=== PATIENT | male | born 1960 | race Caucasian/White ===

== ENCOUNTER 2016-11-22 21:15 | Emergency (ER) | payer SELFPAY ==
[~2016-11-22] VITALS: Ht 180.3 cm; Wt 117.8 kg
[~2016-11-22 21:15] MED LIST: ALBU1AER9 INH
[2016-11-22 21:26] VITALS: TEMP 36.8; Ht 180.3 cm; Wt 117.8 kg
[2016-11-22 21:50] VITALS: O2SAT 94
[2016-11-22] MEDS ORDERED: ALBUT/IPRATROP 3MG/0.5MG NEB 3 ML VIAL INH STA (21:53)
[2016-11-22 22:17] LABS: INR 0.9 (0.9-1.1)
--- NOTE | 2016-11-22 22:17 | DIAGNOSTIC IMAGING REPORT ---
CHEST ONE VIEW PORTABLE CLINICAL HISTORY: sob, cough dyspnea COMPARISON STUDY: 05/04/2013 FINDINGS: Mild stable cardiomegaly. Lungs are clear. Slight interstitial prominence both lung bases felt to be chronic. No acute infiltrate. IMPRESSION: Mild cardiomegaly. Otherwise negative study Electronically signed by: Luis Enrique Leon M.D. 11/22/2016 10:16 PM Dictated Date/Time: 11/22/2016 10:16 PM
[2016-11-22 22:21] LABS: BASO % 0.5 %; BASO ABS # 0.02 K/uL (0-0.2); COMPLETE YES; EOS % 2.7 %; HEMATOCRIT 43.3 % (42-52); IG% 0.2 %; LYMPH % 30.3 %; LYMPH ABS # 1.25 K/uL (1.2-3.4); MEAN CELL VOLUME 78.6 fL (80-100); MEAN CORPUSCULAR HEMOGLOBIN 27.9 pg (25-34); MEAN CORPUSCULAR HGB CONC 35.6 g/dl (32-36); MEAN PLATELET VOLUME 10.9 fL (7.4-10.4); MONO % 15.3 %; PLATELET COUNT 132 K/uL (130-400); RED BLOOD COUNT 5.51 M/uL (4.7-6.1); WHITE BLOOD COUNT 4.12 K/uL (4.8-10.8)
[2016-11-22] MEDS ORDERED: LORAZEPAM 2 MG/ML 1 ML VIAL ONE (22:27)
[2016-11-22] MEDS ORDERED: ATIVAN 1MG HOMEPACK PO ONE (22:30)
[2016-11-22] MEDS ORDERED: LORAZEPAM 2 MG/ML 1 ML VIAL IV STA (22:30)
[2016-11-22] MEDS ORDERED: DEXAMETHASONE SOD INJ 10 MG/ML VIAL IV ONE (22:30)
[2016-11-22] MEDS ORDERED: ALBUTEROL HFA 8 GM INHALER INH STA (22:30)
[2016-11-22] MEDS ORDERED: PANTOprazole SOD 40 MG TAB PO STA (22:35)
[2016-11-22 22:44] LABS: BUN/CREATININE RATIO 17.3 (10-20); CALCIUM 8.5 mg/dl (8.5-10.1); CREATININE 1.1 mg/dl (0.60-1.40); POTASSIUM 3.7 mmol/L (3.5-5.1)
[2016-11-22] MEDS ORDERED: SALI0.6510 NAE (23:02)
[2016-11-22] MEDS ORDERED: PROAIR INH (23:02)
[2016-11-22] MEDS ORDERED: FLUT0.15 NAE (23:02)
[2016-11-22 23:04] LABS: ALB/GLOB RATIO 1.1 (0.9-2)
[2016-11-23] MEDS ORDERED: PANT40TA PO (00:57)
[2016-11-23 01:06] VITALS: BP 138/84; PULSE 91; O2SAT 95
--- NOTE | 2016-11-23 04:28 | EMERGENCY ROOM VISIT NOTE ---
History First contact with patient: 22:23 Chief Complaint: RESPIRATORY PROBLEMS Stated Complaint: CONGESTION,COUGH,TROUBLE BREATHING,ANXIETY Nursing Triage Summary: c/o of SOB with increasing anxiety. Has had "cold for over week now." Reports nasal congestion, headache, sore throat & shortness of breath. Nasal drainage is clear. Frequent cough that is producing "yellow thick" mucous at times. Also reports a "large lymph node to right side of neck." Taking OTC Robitussin & Ibuprofen. hx-anxiety/panic attacks in past. Last time medicated was >5yrs ago. Home Ativan was . History of Present Illness The patient is a 56 year old male who presents to the Emergency Room with complaints of cough, congestion, pleurisy for the past week who developed a panic attack tonight. Patient states he had overwhelmed from the illness and had a panic attack. He states his Ativan is 5 years . Patient denies bowel or chest pain, dyspnea, productive cough, abdominal pain, leg pain or swelling, recent travel, prior heart disease. No family history of heart disease. He does not smoke. No prior history diabetes, cholesterol or high blood pressure. He is tolerating by mouth fluids and food. Patient also states he's been suffering with reflux for over a month now. He lost his insurance and has not been going to his doctor. Review of Systems See HPI for pertinent positives & negatives. A total of 10 systems reviewed and were otherwise negative. Past Medical/Surgical History Medical Problems: (1) Hyperlipidemia (2) Kidney stone Social History Smoking Status: Never Smoker Alcohol Use: occasionally Marital Status: Occupation Status: employed Current/Historical Medications Scheduled Pantoprazole (Protonix), 40 MG PO DAILY Saline ([place] Nasal [place]), 2 SPRAYS KENAN PRN Scheduled PRN Fluticasone Propionate (Nasal) (Flonase Allergy Relief), 2 SPRAYS KENAN DAILY PRN for Nasal Congestion [Proair], 2 PUFFS INH QID PRN for SOB/Wheezing Allergies Coded Allergies: No Known Allergies (Unverified , 04/21/15) Physical Exam Vital Signs Date Time Temp Pulse Resp B/P Pulse Ox O2 Delivery O2 Flow Rate FiO2 11/23/16 01:06 91 20 138/84 95 Room Air 11/22/16 23:00 86 18 96 11/22/16 22:45 80 13 95 11/22/16 22:42 177/97 11/22/16 22:30 82 19 95 11/22/16 22:15 76 17 96 11/22/16 22:00 79 15 98 11/22/16 22:00 94 Room Air 11/22/16 21:58 80 11/22/16 21:50 94 Room Air 11/22/16 21:43 162/95 11/22/16 21:26 36.8 78 20 153/95 96 Room Air Pain Rating (0-10): 3.0 Physical Exam VITALS: Vitals are noted on the nurse's note and reviewed by myself. Vital signs stable. GENERAL: Pleasant male anxious-appearing, in no acute distress, nondiaphoretic, well-developed well-nourished. SKIN: The skin was without rashes, erythema, edema, or bruising. There is no tenting of the skin. Capillary reflex less than 2 seconds. HEAD: Normocephalic atraumatic. EARS: External auditory canals clear, tympanic membranes pearly [place] without erythema or effusion bilaterally. EYES: Pupils equal round and reactive to light and accommodation. Conjunctivae without injection, sclerae without icterus. Extraocular movements intact. NOSE: Patent, turbinates without inflammation or discharge. No sinus tenderness. MOUTH: Mucous membranes moist. Pharynx without erythema or exudate. Uvula midline. Airway patent. Tongue does not deviate. NECK: Supple without nuchal rigidity. No lymphadenopathy. No thyromegaly. Cervical spine is nontender. No JVD. HEART: Regular rate and rhythm without murmurs gallops or rubs. LUNGS: Clear to auscultation bilaterally without wheezes, rales or rhonchi. No dullness to percussion. No retractions or accessory muscle use. ABDOMEN: Positive bowel sounds x 4. Normal tympanic percussion. Soft, nontender, without masses or organomegaly. Penn sign negative. No guarding or rebound tenderness. MUSCULOSKELETAL: No muscle atrophy, erythema, or edema noted. NEURO: Patient was alert and oriented to person place and time. Normal sensation to light and sharp touch. No focal neurological deficits. Medical Decision & Procedures Laboratory Results 11/22/16 21:55 Red Blood Count 5.51, Mean Corpuscular Volume 78.6, Mean Corpuscular Hemoglobin 27.9, Mean Corpuscular Hemoglobin Concent 35.6, Mean Platelet Volume 10.9, Neutrophils (%) (Auto) 51.0, Lymphocytes (%) (Auto) 30.3, Monocytes (%) (Auto) 15.3, Eosinophils (%) (Auto) 2.7, Basophils (%) (Auto) 0.5, Neutrophils # (Auto ) 2.10, Lymphocytes # (Auto) 1.25, Monocytes # (Auto) 0.63, Eosinophils # (Auto ) 0.11, Basophils # (Auto) 0.02 11/22/16 21:55 Test 11/22/16 21:55 11/22/16 23:52 White Blood Count 4.12 K/uL (4.8-10.8) Red Blood Count 5.51 M/uL (4.7-6.1) Hemoglobin 15.4 g/dL (14.0-18.0) Hematocrit 43.3 % (42-52) Mean Corpuscular Volume 78.6 fL (80-100) Mean Corpuscular Hemoglobin 27.9 pg (25-34) Mean Corpuscular Hemoglobin Concent 35.6 g/dl (32-36) Platelet Count 132 K/uL (130-400) Mean Platelet Volume 10.9 fL (7.4-10.4) Neutrophils (%) (Auto) 51.0 % Lymphocytes (%) (Auto) 30.3 % Monocytes (%) (Auto) 15.3 % Eosinophils (%) (Auto) 2.7 % Basophils (%) (Auto) 0.5 % Neutrophils # (Auto) 2.10 K/uL (1.4-6.5) Lymphocytes # (Auto) 1.25 K/uL (1.2-3.4) Monocytes # (Auto) 0.63 K/uL (0.11-0.59) Eosinophils # (Auto) 0.11 K/uL (0-0.5) Basophils # (Auto) 0.02 K/uL (0-0.2) RDW Standard Deviation 36.5 fL (36.4-46.3) RDW Coefficient of Variation 12.9 % (11.5-14.5) Immature Granulocyte % (Auto) 0.2 % Immature Granulocyte # (Auto) 0.01 K/uL (0.00-0.02) Prothrombin Time 10.0 SECONDS (9.0-12.0) Prothromb Time International Ratio 0.9 (0.9-1.1) Activated Partial Thromboplast Time 25.5 SECONDS (21.0-31.0) Partial Thromboplastin Ratio 1.0 Anion Gap 10.0 mmol/L (3-11) Est Creatinine Clear Calc Drug Dose 96.7 ml/min Estimated GFR () 85.9 Estimated GFR (Non- 74.1 BUN/Creatinine Ratio 17.3 (10-20) Calcium Level 8.5 mg/dl (8.5-10.1) Total Bilirubin 0.6 mg/dl (0.2-1) Aspartate Amino Transf (AST/SGOT) 26 U/L (15-37) Alanine Aminotransferase (ALT/SGPT) 41 U/L (12-78) Alkaline Phosphatase 76 U/L (45-117) Total Protein 7.3 gm/dl (6.4-8.2) Albumin 3.8 gm/dl (3.4-5.0) Globulin 3.5 gm/dl (2.5-4.0) Albumin/Globulin Ratio 1.1 (0.9-2) Chemistry Specimen Hemolysis Bedside Troponin I 0.000 ng/ml (0-0.045) Medications Administered Medications (Trade) Dose Ordered Sig/Josh Route Start Time Stop Time Status Last Admin Dose Admin Albuterol/ Ipratropium (Duoneb) 3 ml NOW STAT INH 11/22/16 21:53 11/22/16 21:56 DC 11/22/16 22:20 3 ML Lorazepam (Ativan Inj) 1 mg NOW STAT IV 11/22/16 22:30 11/22/16 22:32 DC 11/22/16 22:45 1 MG Lorazepam (Ativan 1MG Home Pack) 1 homepack UD ONCE PO 11/22/16 22:30 11/22/16 22:32 DC 11/23/16 00:04 1 HOMEPACK Dexamethasone Sodium Phosphate (Decadron Inj) 10 mg NOW ONCE IV 11/22/16 22:30 11/22/16 22:32 DC 11/23/16 00:02 10 MG Albuterol (Ventolin Hfa Inhaler) 2 puffs ONE STAT INH 11/22/16 22:30 11/22/16 22:32 DC 11/23/16 00:04 60 PUFFS Pantoprazole Sodium (Protonix Tab) 40 mg NOW STAT PO 11/22/16 22:35 11/22/16 22:36 DC 11/23/16 00:03 40 MG ED Course Prior records/ancillary studies reviewed. Triage Nursing notes reviewed. Additional history obtained from family. The patient's history was concerning for cold symptoms, panic attack and reflux. Differential diagnosis: Etiologies such as cardiac ischemia, aortic dissection, pulmonary embolism, pneumonia, pneumothorax, musculoskeletal, infections, pericarditis, myocarditis , esophageal rupture, gastrointestinal, as well as others were entertained. Physical examination: As above. ER treatment provided: Ativan, Protonix On reassessment the patient felt better. Diagnostic interpretation by me: The electrocardiogram was negative for pathologic change. Normal sinus, normal intervals, no acute ST-T wave changes. Impression normal sinus rhythm interpreted by myself The labs revealed negative troponin 2 hours apart 2, no worrisome leukocytosis Imaging studies: Chest x-ray as above CHEST ONE VIEW PORTABLE CLINICAL HISTORY: sob, cough dyspnea COMPARISON STUDY: 05/04/2013 FINDINGS: Mild stable cardiomegaly. Lungs are clear. Slight interstitial prominence both lung bases felt to be chronic. No acute infiltrate. IMPRESSION: Mild cardiomegaly. Otherwise negative study Electronically signed by: Luis Enrique Leon M.D. Exam and history seem consistent with bronchitis, panic attack and reflux. Patient felt much better after being medicated as above. He did not have an acute abdomen on exam. 2 troponins were neg 2 hours apart and a normal EKG. I do not believe this is cardiac in etiology. He has been sick for a week. No pneumonia on x-ray. He was advised to take medications as directed and to follow-up family care in a few days or here in the ER sooner for chest pain, difficulty breathing, worsening signs or symptoms or as needed. By the evaluation outlined above emergent etiologies such as cardiac ischemia, aortic dissection, pulmonary embolism, pneumonia, pneumothorax, pericarditis, myocarditis, gastrointestinal, as well as others were deemed relatively unlikely. The pt informed about the findings as listed above. All questions were answered and pleased with the treatment. Return instructions were outlined and the patient was discharged in stable condition. Outpatient prescription management: protonix Referral: The patient was referred back to primary care physician for follow-up in 2 to 3 days for a recheck of the current condition. Case reviewed with my attending Medical Decision As above Impression Primary Impression: Bronchitis Additional Impressions: Anxiety GERD (gastroesophageal reflux disease) Departure Information Dispostion Home / Self-Care Condition GOOD Prescriptions Pantoprazole (Protonix) 40 Mg Tab 40 MG PO DAILY for 14 Days, #14 TAB Prov: Skylar Pitt PA-C 11/23/16 Forms WORK / SCHOOL INSTRUCTIONS, HOME CARE DOCUMENTATION FORM, IMPORTANT VISIT INFORMATION Patient Instructions GERD, Bronchitis Acute, My [facility] Additional Instructions Protonix 40 m tablet daily for the next 2 weeks. Albuterol Inhaler: Take 2 puffs four times daily for five days, then as needed. Rest and drink plenty of fluids. Avoid smoke/smoking, fumes, dust, or any triggers in the past that may have affected your breathing. Continue current medications. Return to the ER for chest pain, difficulty breathing, fevers, vomiting, worsening of your condition, or as needed. Follow up with your primary physician this week for a recheck of your current condition. Problem Qualifiers Additional Impressions: GERD (gastroesophageal reflux disease) Esophagitis presence: esophagitis presence not specified Qualified Codes: K21.9 - Gastro-esophageal reflux disease without esophagitis
== END 2016-11-23 01:20 | disposition home or self-care (01) ==
LOC: C.EDB 21:15 → C.EDA 11-23 01:20
DX: J40 Bronchitis, not specified as acute or chronic (principal); F41.9 Anxiety disorder, unspecified; K21.9 Gastro-esophageal reflux disease without esophagitis; E78.5 Hyperlipidemia, unspecified; Z87.442 Personal history of urinary calculi

== ENCOUNTER 2017-01-22 15:54 | Emergency (ER) | payer OTHER ==
[~2017-01-22] VITALS: Ht 180.3 cm; Wt 115.5 kg
[~2017-01-22 15:54] MED LIST changes: -ALBU1AER9 INH; +FLUT0.15 NAE; +PROAIR INH; +SALI0.6510 NAE
[2017-01-22 15:58] VITALS: TEMP 36.5; Ht 180.3 cm; Wt 115.5 kg
[2017-01-22] MEDS ORDERED: LORAZEPAM 0.5 MG TAB PO STA (16:13)
[2017-01-22] MEDS ORDERED: MECLIZINE HCL 25 MG TAB PO STA (16:13)
[2017-01-22] MEDS ORDERED: SODIUM CHLORIDE 0.9% 1000ML 1,000 ML IV STA (16:13)
[2017-01-22 16:32] LABS: BASO % 0.4 %; BASO ABS # 0.02 K/uL (0-0.2); COMPLETE YES; EOS % 1.5 %; HEMATOCRIT 43.9 % (42-52); LYMPH % 41.5 %; LYMPH ABS # 1.89 K/uL (1.2-3.4); MEAN CORPUSCULAR HEMOGLOBIN 28.4 pg (25-34); MEAN CORPUSCULAR HGB CONC 35.5 g/dl (32-36); MONO % 9.5 %; NEUT % 47.1 %; PLATELET COUNT 160 K/uL (130-400); RED BLOOD COUNT 5.49 M/uL (4.7-6.1); WHITE BLOOD COUNT 4.55 K/uL (4.8-10.8)
--- NOTE | 2017-01-22 16:35 | DIAGNOSTIC IMAGING REPORT ---
SINGLE VIEW CHEST CLINICAL HISTORY: Dizziness. Nausea. FINDINGS: An AP, portable, upright chest radiograph is compared to study dated 11/22/2016 and correlated with chest CT dated 05/04/2013. The examination is degraded by portable technique and patient rotation. The heart is enlarged. The pulmonary vasculature is noncongested. Chronic interstitial thickening is similar to previous. There is mild bibasilar atelectasis. No airspace consolidation, large pleural effusion, or pneumothorax is seen. The bony thorax is grossly intact. IMPRESSION: Cardiomegaly with no acute cardiopulmonary abnormality. Electronically signed by: Tin Leon M.D. 01/22/2017 4:33 PM Dictated Date/Time: 01/22/2017 4:32 PM
[2017-01-22 16:49] LABS: BUN/CREATININE RATIO 18.3 (10-20); CALCIUM 8.5 mg/dl (8.5-10.1); CREATININE 0.92 mg/dl (0.60-1.40); POTASSIUM 3.3 mmol/L (3.5-5.1)
--- NOTE | 2017-01-22 16:52 | DIAGNOSTIC IMAGING REPORT ---
HEAD CT NONCONTRAST CT DOSE: 614.27 mGy.cm HISTORY: Mental status change dizzy TECHNIQUE: Multiaxial CT images of the head were performed without the use of intravenous contrast. Comparison: None. Findings: The paranasal sinuses and mastoid air cells are clear. The calvarium and skull base are intact. The ventricles and sulci are within normal limits. There is no mass, hematoma, midline shift, or acute infarct. Impression: No acute intracranial abnormality. Electronically signed by: Luis Enrique Leon M.D. 01/22/2017 4:51 PM Dictated Date/Time: 01/22/2017 4:49 PM
[2017-01-22] MEDS ORDERED: VNTHFA/IN INH (17:19)
[2017-01-22] MEDS ORDERED: LORAZEPAM 0.5 MG TAB SL STA (17:45)
[2017-01-22] MEDS ORDERED: SODIUM CHLORIDE 0.9% 500ML 500 ML IV STA (18:01)
[2017-01-22] MEDS ORDERED: ANT25 PO (18:59)
[2017-01-22 19:28] VITALS: BP 162/110; PULSE 60; O2SAT 96
--- NOTE | 2017-01-22 20:26 | EMERGENCY ROOM VISIT NOTE ---
History Report prepared by Bee: Shruthi Berry Under the Supervision of: Dr. Eric Ugarte D.O. First contact with patient: 16:01 Chief Complaint: DIZZY Stated Complaint: DIZZINESS,OVERHEATED,NAUSEATED History of Present Illness The patient is a 56 year old male who presents to the Emergency Room with complaints of sudden, persistent dizziness that began one hour ago. The patient reports that he was sitting on his computer looking at stuff today and when he stood, he suddenly became dizzy. He states that he laid down and felt his symptoms worsen. The patient states that he became diaphoretic and nauseous , noting that he still feels hot. The patient states that he has a history of anxiety, noting that it has been worsening. He states that sitting is the best position, but states that he still notices the dizziness. The patient associates a fatigued feeling in his legs. He denies any new medications or recent trauma. The patient denies being on any blood thinners. Pt denies headache, change in vision, ringing in ears, cough, runny nose, sore throat, fevers, chest pain, shortness of breath, vomiting, diarrhea, pain with urination , melena, weakness in arms or legs. Source of History: patient Onset: one hour ago Position: other (global) Quality: other (dizziness) Timing: other (sudden, persistent) Modifying Factors (Worsening): other (lying down) Associated Symptoms: + diaphoresis, + nausea Review of Systems See HPI for pertinent positives & negatives. A total of 10 systems reviewed and were otherwise negative. Past Medical & Surgical Medical Problems: (1) Hyperlipidemia (2) Kidney stone Family History Diabetes mellitus FH: cancer FH: heart disease Kidney disease Kidney stones Social History Smoking Status: Never Smoker Alcohol Use: occasionally Marital Status: Housing Status: lives with family Occupation Status: unemployed Current/Historical Medications Scheduled Meclizine HCl (Meclizine HCl), 25 MG PO TID Saline ([place] Nasal [place]), 2 SPRAYS KENAN PRN Scheduled PRN Albuterol Hfa (Ventolin Hfa), 2-4 PUFFS INH Q6H PRN for SOB/Wheezing Fluticasone Propionate (Nasal) (Flonase Allergy Relief), 2 SPRAYS KENAN DAILY PRN for Nasal Congestion Allergies Coded Allergies: No Known Allergies (Unverified , 01/22/17) Physical Exam Vital Signs Date Time Temp Pulse Resp B/P Pulse Ox O2 Delivery O2 Flow Rate FiO2 01/22/17 19:28 60 18 162/110 96 01/22/17 18:05 65 18 145/86 98 Room Air 01/22/17 15:58 36.5 64 20 144/100 95 Room Air Physical Exam GENERAL: Sitting up in bed, alert, well appearing, well nourished, no distress, non-toxic. Symptoms worsened with change from laying to sitting. EYE EXAM: normal conjunctiva, PERRL and EOM's intact EARS: TMs clear bilaterally. OROPHARYNX: no exudate, no erythema, lips, buccal mucosa, and tongue normal and mucous membranes are moist NECK: supple, no nuchal rigidity, no adenopathy, non-tender LUNGS: Clear to auscultation. Normal chest wall mechanics HEART: no murmurs, S1 normal and S2 normal ABDOMEN: abdomen soft, non-tender, normo-active bowel sounds, no masses, no rebound or guarding. BACK: Back is symmetrical on inspection and there is no deformity, no midline tenderness, no CVA tenderness. SKIN: no rashes and no bruising UPPER EXTREMITIES: upper extremities are grossly normal. LOWER EXTREMITIES: No pitting edema. NEURO EXAM: Normal sensorium, cranial nerves II-XII intact, normal speech, no weakness of arms, no weakness of legs. No drift. Finger to nose intact. Gross sensation intact. Rapid alternating movements of upper extremities are intact. Medical Decision & Procedures ER Provider Diagnostic Interpretation: Radiology results as stated below per my review and the radiologist's interpretation: HEAD CT NONCONTRAST CT DOSE: 614.27 mGy.cm HISTORY: Mental status change dizzy TECHNIQUE: Multiaxial CT images of the head were performed without the use of intravenous contrast. Comparison: None. Findings: The paranasal sinuses and mastoid air cells are clear. The calvarium and skull base are intact. The ventricles and sulci are within normal limits. There is no mass, hematoma, midline shift, or acute infarct. Impression: No acute intracranial abnormality. Electronically signed by: Luis Enrique Leon M.D. 01/22/2017 4:51 PM Dictated Date/Time: 01/22/2017 4:49 PM SINGLE VIEW CHEST CLINICAL HISTORY: Dizziness. Nausea. FINDINGS: An AP, portable, upright chest radiograph is compared to study dated 11/22/2016 and correlated with chest CT dated 05/04/2013. The examination is degraded by portable technique and patient rotation. The heart is enlarged. The pulmonary vasculature is noncongested. Chronic interstitial thickening is similar to previous. There is mild bibasilar atelectasis. No airspace consolidation, large pleural effusion, or pneumothorax is seen. The bony thorax is grossly intact. IMPRESSION: Cardiomegaly with no acute cardiopulmonary abnormality. Electronically signed by: Tin Leon M.D. 01/22/2017 4:33 PM Dictated Date/Time: 01/22/2017 4:32 PM Laboratory Results 01/22/17 16:25 Red Blood Count 5.49, Mean Corpuscular Volume 80.0, Mean Corpuscular Hemoglobin 28.4, Mean Corpuscular Hemoglobin Concent 35.5, Mean Platelet Volume 11.0, Neutrophils (%) (Auto) 47.1, Lymphocytes (%) (Auto) 41.5, Monocytes (%) (Auto) 9.5, Eosinophils (%) (Auto) 1.5, Basophils (%) (Auto) 0.4, Neutrophils # (Auto) 2.14, Lymphocytes # (Auto) 1.89, Monocytes # (Auto) 0.43, Eosinophils # (Auto) 0.07, Basophils # (Auto) 0.02 01/22/17 16:25 Test 01/22/17 16:25 White Blood Count 4.55 K/uL (4.8-10.8) Red Blood Count 5.49 M/uL (4.7-6.1) Hemoglobin 15.6 g/dL (14.0-18.0) Hematocrit 43.9 % (42-52) Mean Corpuscular Volume 80.0 fL (80-100) Mean Corpuscular Hemoglobin 28.4 pg (25-34) Mean Corpuscular Hemoglobin Concent 35.5 g/dl (32-36) Platelet Count 160 K/uL (130-400) Mean Platelet Volume 11.0 fL (7.4-10.4) Neutrophils (%) (Auto) 47.1 % Lymphocytes (%) (Auto) 41.5 % Monocytes (%) (Auto) 9.5 % Eosinophils (%) (Auto) 1.5 % Basophils (%) (Auto) 0.4 % Neutrophils # (Auto) 2.14 K/uL (1.4-6.5) Lymphocytes # (Auto) 1.89 K/uL (1.2-3.4) Monocytes # (Auto) 0.43 K/uL (0.11-0.59) Eosinophils # (Auto) 0.07 K/uL (0-0.5) Basophils # (Auto) 0.02 K/uL (0-0.2) RDW Standard Deviation 39.4 fL (36.4-46.3) RDW Coefficient of Variation 13.3 % (11.5-14.5) Immature Granulocyte % (Auto) 0.0 % Immature Granulocyte # (Auto) 0.00 K/uL (0.00-0.02) Anion Gap 7.0 mmol/L (3-11) Est Creatinine Clear Calc Drug Dose 114.5 ml/min Estimated GFR () 106.6 Estimated GFR (Non- 92.0 BUN/Creatinine Ratio 18.3 (10-20) Calcium Level 8.5 mg/dl (8.5-10.1) Total Bilirubin 0.9 mg/dl (0.2-1) Direct Bilirubin 0.2 mg/dl (0-0.2) Aspartate Amino Transf (AST/SGOT) 20 U/L (15-37) Alanine Aminotransferase (ALT/SGPT) 41 U/L (12-78) Alkaline Phosphatase 71 U/L (45-117) Total Protein 6.9 gm/dl (6.4-8.2) Albumin 3.8 gm/dl (3.4-5.0) Lipase 124 U/L (73-393) Laboratory results per my review. Medications Administered Medications (Trade) Dose Ordered Sig/Josh Route Start Time Stop Time Status Last Admin Dose Admin Sodium Chloride (Nss 1000ml) 1,000 ml @ 999 mls/hr Q1H1M STAT IV 01/22/17 16:13 01/22/17 17:13 DC 01/22/17 16:33 999 MLS/HR Meclizine HCl (Antivert Tab) 25 mg NOW STAT PO 01/22/17 16:13 01/22/17 16:15 DC 01/22/17 16:29 25 MG Lorazepam (Ativan Tab) 0.5 mg NOW STAT PO 01/22/17 16:13 01/22/17 16:15 DC 01/22/17 16:29 0.5 MG Lorazepam 0.5 mg 0.5 mg NOW STAT SL 01/22/17 17:45 01/22/17 17:46 DC 01/22/17 18:04 0.5 MG Sodium Chloride (Nss 500ml) 500 ml @ 999 mls/hr Q31M STAT IV 01/22/17 18:01 01/22/17 18:31 DC 01/22/17 18:04 999 MLS/HR ECG Indication: other (dizziness) Rate (beats per minute): 64 Rhythm: sinus rhythm Findings: no ectopy, other (normal axis) ED Course ED COURSE: Vital signs were reviewed and showed normal vitals The patients medical record was reviewed The above diagnostic studies were performed and reviewed. ED treatments and interventions as stated above. 1605: The patient was evaluated in room C9. A complete history and physical examination was performed. 1613: Ordered Ativan Tab 0.5 mg PO, Antivert Tab 25 mg PO, Sodium Chloride 1000 ml @ 999 mls/hr IV. 1653: I reevaluated the patient and he is resting comfortably. 1733: I reevaluated the patient and he is feeling better. 1745: Ordered Ativan Tab 0.5 mg Sl. 1801: Ordered Sodium Chloride 500 ml @ 999 mls/hr IV. 1851: Upon reevaluation, the patient is feeling 100% better.I discussed my findings with the patient and he understands and agrees with the treatment plan. Based on the patients age, coexisting illnesses, exam and lab findings the decision to treat as an outpatient was made. The patient remained stable while under my care. The patient appeared well at the time of discharge. Medical Decision Differential diagnosis includes etiologies such as benign positional vertigo, dehydration, hypovolemia, anemia, tumor, infection, hypoglycemia, electrolyte abnormalities, cardiac sources, intracerebral event, toxicologic, neurologic, as well as others were entertained. Patient is a 56-year-old male who presents to the ER for sudden onset of dizziness. He notes that this comes and goes very abruptly. No fevers. No headache. No weakness in his arms or legs. He is completely neurologically intact. No cerebellar symptoms. Able to ambulate. Symptoms were worse with changing in positions laying to sitting. CBC along with BMP, LFTs, bilirubin and lipase were normal. CT head was negative. He was given 2 doses of Ativan and Antivert with complete resolution of his dizziness. EKG was unremarkable. Based on his symptoms I do favor this is likely peripheral vertigo. Patient was updated in regards to this was discharged with near resolution of his dizziness ambulating under his own accord. Discussed with Pt concerning signs and symptoms to watch out for. Pt was instructed to follow up with their PCP and discussed with the patient their option to return to the ED at anytime for persistent or worsening symptoms. The appropriate anticipatory guidance and out- patient management, including indications for return to the emergency department , were explained at length to the patient and understood. Impression Primary Impression: Vertigo Additional Impression: Hypokalemia Scribe Attestation The scribe's documentation has been prepared under my direction and personally reviewed by me in its entirety. I confirm that the note above accurately reflects all work, treatment, procedures, and medical decision making performed by me. Departure Information Dispostion Home / Self-Care Prescriptions Meclizine HCl (Meclizine HCl) 25 Mg Tab 25 MG PO TID, #30 Prov: Eric Ugarte, 01/22/17 Referrals No Doctor, Assigned (PCP) Keira Nielson M.D. (MEDICAL) Forms HOME CARE DOCUMENTATION FORM, IMPORTANT VISIT INFORMATION Patient Instructions ED Vertigo Unspecified, My [facility] Additional Instructions Please follow up with your primary care doctor with in the next 24 hours. Any worsening of your symptoms, please return to the ED immediately. This includes weakness or numbness in your arms or legs, confusion, slurred speech, inability to move, or any other concerning signs or symptoms from your standpoint. Please take Antivert as prescribed for any recurrence of your dizziness. Please do not drive, work, operate heavy machinery for the next 12 hours. Problem Qualifiers
== END 2017-01-22 19:39 | disposition home or self-care (01) ==
LOC: C.EDB 15:55 → C.EDC 19:39
DX: R42 Dizziness and giddiness (principal); E87.6 Hypokalemia; E78.5 Hyperlipidemia, unspecified; I51.7 Cardiomegaly; Z87.442 Personal history of urinary calculi; Z83.3 Family history of diabetes mellitus

== ENCOUNTER → 2017-05-15 | Outpatient (CLI) | payer OTHER ==
[~2017-05-15] MED LIST changes: +ANT25 PO; -PROAIR INH; +VNTHFA/IN INH
[2017-05-15 10:16] LABS: CHOLESTEROL/HDL RATIO 6.9
== END | disposition home or self-care (01) ==
LOC: C.LAB1850 07:56
PROVIDERS: ATTEND Internal Medicine
DX: Z11.59 Encounter for screening for other viral diseases (principal); Z13.1 Encounter for screening for diabetes mellitus; E78.5 Hyperlipidemia, unspecified

== ENCOUNTER 2017-12-22 10:09 | Emergency (ER) | payer BC, OTHER ==
[~2017-12-22] VITALS: Ht 180.3 cm; Wt 104.3 kg
[2017-12-22 10:17] VITALS: TEMP 36.4; Ht 180.3 cm; Wt 104.3 kg
[2017-12-22] MEDS ORDERED: ATOR-22 PO (10:39)
[2017-12-22] MEDS ORDERED: CLR10 PO (10:39)
[2017-12-22] MEDS ORDERED: RANI150T85 PO (10:39)
[2017-12-22] MEDS ORDERED: KETOROLAC TROMETHAMINE 60 MG/2 ML VIAL IM STA (10:54)
--- NOTE | 2017-12-22 12:05 | DIAGNOSTIC IMAGING REPORT ---
C-SPINE ROUTINE 4 OR 5 VIEWS HISTORY: Pain. Peripheral neuropathy. eval for rt shoulder pain COMPARISON: None. FINDINGS: The cervical spine is visualized from C1 through the superior endplate of T1. There is no fracture. No subluxation. Disc spaces are preserved. Prevertebral soft tissues and the atlantodens interval are intact. IMPRESSION: No fracture or subluxation within the cervical spine. The above report was generated using voice recognition software. It may contain grammatical, syntax or spelling errors. Electronically signed by: Luis Enrique Leon M.D. 12/22/2017 12:04 PM Dictated Date/Time: 12/22/2017 12:03 PM
--- NOTE | 2017-12-22 12:05 | DIAGNOSTIC IMAGING REPORT ---
R SHOULDER MIN 2 VIEWS ROUTINE CLINICAL HISTORY: 57 years-old Male presenting with eval for right shoulder pain. TECHNIQUE: Internal rotation, external rotation, Grashey views of the right shoulder were obtained. COMPARISON: Chest x-ray from 05/04/2013. FINDINGS: Glenohumeral and acromioclavicular joints congruent. No acute fracture or malalignment. No advanced degenerative change. No radiographic soft tissue abnormality. IMPRESSION: No acute osseous injury. Electronically signed by: Steven Artis M.D. 12/22/2017 12:04 PM Dictated Date/Time: 12/22/2017 12:03 PM
--- NOTE | 2017-12-22 12:35 | EMERGENCY ROOM VISIT NOTE ---
History Report prepared by Bee: Andi Theodore Under the Supervision of: Dr. Moi Orourke M.D. First contact with patient: 10:41 Chief Complaint: ARM PAIN Stated Complaint: RT ARM PAIN History of Present Illness The patient is a 57 year old male who presents to the Emergency Room with complaints of intermittent right arm pain beginning 15 years ago. He states that his current pain is present in his right shoulder more than normal. He describes his pain as a feeling of "soreness". The patient denies recent injury or trauma. He states that his pain initially was present once or twice a year for a few days, but now comes more frequently. He has had x-rays of his arm in the past and was told he had bursitis. He had a head CT last year as well which was negative. The patient states that his pain usually moves from his right arm to his left arm, but this has not happened yet for his current pain. He states that his pain is worsened with movement. He also complains of nausea. The patient denies vomiting, fevers, chills, abdominal pain, chest pain, or SOB. His PCP told him his pain may be a "phantom pain". Source of History: patient Onset: 15 years ago Position: arm (right) Quality: other ("soreness") Timing: intermittent Modifying Factors (Worsening): movement Associated Symptoms: + nausea, No fevers, No chills, No chest pain, No SOB, No vomiting, No abdominal pain Review of Systems See HPI for pertinent positives & negatives. A total of 10 systems reviewed and were otherwise negative. Past Medical & Surgical Medical Problems: (1) Hyperlipidemia (2) Kidney stone Old medical records were reviewed. Nurse's notes were reviewed and I agree with. Family History Diabetes mellitus FH: cancer FH: heart disease Kidney disease Kidney stones Social History Smoking Status: Never Smoker Alcohol Use: occasionally Marital Status: Housing Status: lives with family Occupation Status: unemployed Current/Historical Medications Scheduled Atorvastatin (Lipitor), 20 MG PO DAILY Loratadine (Claritin), 10 MG PO DAILY Ranitidine (Zantac), 150 MG PO BID Saline ([place] Nasal [place]), 2 SPRAYS KENAN PRN Scheduled PRN Albuterol Hfa (Ventolin Hfa), 2-4 PUFFS INH Q6H PRN for SOB/Wheezing Fluticasone Propionate (Nasal) (Flonase Allergy Relief), 2 SPRAYS KENAN DAILY PRN for Nasal Congestion Allergies Coded Allergies: No Known Allergies (Unverified , 12/22/17) Physical Exam Vital Signs Date Time Temp Pulse Resp B/P (MAP) Pulse Ox O2 Delivery O2 Flow Rate FiO2 12/22/17 12:53 63 16 148/92 97 12/22/17 11:20 62 16 177/98 95 Room Air 12/22/17 10:17 36.4 71 18 144/101 90 Room Air Physical Exam General: Non-ill appearing middle-aged male in no acute distress. HEENT: Normal cephalic atraumatic. Pupils are equal round and reactive to light. Extraocular movements are intact. Oropharynx is pink with moist mucous membranes. No swelling of the mouth lips or tongue. Neck: Supple with a midline trachea. No meningeal signs or stiffness, no JVD or bruits. No Stridor. Chest: Clear to auscultation bilaterally. No wheezes or rhonchi. No increased work of breathing. Heart: regular rate and rhythm. Abdomen: Soft nontender, nondistended without rebound guarding or rigidity. Extremities: No cyanosis clubbing or edema. No calf tenderness or assymetry. Right shoulder is not red or warm. Pain reproducible with movement, particularly abduction. Normal motor and sensation in the right hand distally. Spine/Back. Non tender to palpation. No CVA tenderness Skin: Good turgor without rashes. Neurologic exam: Cranial nerves two through 12 are intact. Motor and sensation are intact and symmetrical throughout. Medical Decision & Procedures ER Provider Diagnostic Interpretation: Radiology results as stated below per my review and radiologist interpretation: R SHOULDER MIN 2 VIEWS ROUTINE FINDINGS: Glenohumeral and acromioclavicular joints congruent. No acute fracture or malalignment. No advanced degenerative change. No radiographic soft tissue abnormality. IMPRESSION: No acute osseous injury. Electronically signed by: Steven Artis M.D. 12/22/2017 12:04 PM C-SPINE ROUTINE 4 OR 5 VIEWS FINDINGS: The cervical spine is visualized from C1 through the superior endplate of T1. There is no fracture. No subluxation. Disc spaces are preserved. Prevertebral soft tissues and the atlantodens interval are intact. IMPRESSION: No fracture or subluxation within the cervical spine. The above report was generated using voice recognition software. It may contain grammatical, syntax or spelling errors. Electronically signed by: Luis Enrique Leon M.D. 12/22/2017 12:04 PM Medications Administered Medications (Trade) Dose Ordered Sig/Josh Route Start Time Stop Time Status Last Admin Dose Admin Ketorolac Tromethamine (Toradol Inj) 60 mg NOW STAT IM 12/22/17 10:54 12/22/17 10:55 DC 12/22/17 11:16 60 MG ECG Per My Interpretation Indication: nausea Rate (beats per minute): 59 Rhythm: sinus bradycardia Findings: other (No ST elevations or depressions. No PVCs. ) Comparison ECG Date: January 22, 2017 Change: no significant change ED Course 1047: Past medical records reviewed. The patient was evaluated in room C1B, and a complete history and physical examination were performed. 1054: Ordered Toradol Inj 60 mg IM. 1222: Upon reevaluation, the patient is resting comfortably. I discussed the results and treatment plan with him. He verbalized agreement of the treatment plan. The patient was discharged home. Medical Decision Differentials include, but are not limited to; musculoskeletal pain, cervical disease, arthritis, and cardiac disease. This patient comes in as described above. He has been having right arm and shoulder pain this been going on and off for 15 years. On exam, his shoulder hurts a little bit with movement is not red or warm his right upper extremity is neurologically and neurovascularly intact he has normal pulse exam. The pain is not exacerbated with movement of his neck. I did an x-ray of his neck and shoulder and they are unremarkable. EKG does not suggest acute coronary syndrome or arrhythmia. Initially his symptoms are not likely consistent with cardiac disease. He was given Toradol 60 mg IM. I believe he can be discharged home. He should return return if: Increasing pain, worsening of symptoms, fever or chills, any new problems or concerns. He is happy to plan and discharged to home. Medication Reconcilliation Current Medication List: was personally reviewed by me Blood Pressure Screening Patient's blood pressure: Elevated blood pressure Blood pressure disposition: Referred to PCP Impression Primary Impression: Right shoulder pain Scribe Attestation The scribe's documentation has been prepared under my direction and personally reviewed by me in its entirety. I confirm that the note above accurately reflects all work, treatment, procedures, and medical decision making performed by me. Departure Information Dispostion Home / Self-Care Referrals Mary Jo Guadalupe D.O. (PCP) Forms HOME CARE DOCUMENTATION FORM, IMPORTANT VISIT INFORMATION Patient Instructions My [facility] Additional Instructions Rest. Drink plenty of fluids. Use ibuprofen 400 mg every 6 hours, take with food Return if: Increasing pain, worsening symptoms, fever chills, numbness weakness , any new problems or concerns Up with your doctor this week for recheck
[2017-12-22 12:53] VITALS: BP 148/92; PULSE 63; O2SAT 97
== END 2017-12-22 12:50 | disposition home or self-care (01) ==
LOC: C.EDB 10:11 → C.EDC 12:50
DX: M25.511 Pain in right shoulder (principal); E78.5 Hyperlipidemia, unspecified; Z79.899 Other long term (current) drug therapy

== ENCOUNTER 2020-11-19 01:57 | Inpatient (IN) ==
[2020-11-19] MEDS ORDERED: KETOROLAC TROMETHAMINE 15 MG/ML VIAL IV STA (02:12)
--- NOTE | 2020-11-19 02:38 | Emergency Department Note ---
History of Present Illness General Chief Complaint: Chest Pain Stated Complaint: CHEST PAIN, COUGH, CHILLS Time Seen by Provider: 11/19/20 02:02 History of Present Illness Maximum Pain Intensity: 7 This 60-year-old presents to the ER complaining of cough, congestion, dyspnea and chest pain with coughing for the past week who works at [employer] Location: Chest Quality: Congested Severity: Moderate Duration: 1 week Timing: Started a week ago Context: Breathing got worse and patient came in Modifying factors: better with sitting up; worse with laying down Patient denies exertional chest pain, constant chest pain, abdominal pain, loss of taste, loss of smell, sore throat, body aches. He has not received the flu vaccine or the Covid vaccine. No known sick contacts. No prior heart disease. He does not smoke. No recent travel. Home Medications Medication Instructions Recorded Confirmed Type cyclobenzaprine 10 mg PO BID PRN 09/20/20 11/19/20 History ezetimibe 10 mg PO DAILY 09/20/20 11/19/20 History Allergies Allergy/AdvReac Type Severity Reaction Status Date / Time No Known Allergies Allergy Verified 11/19/20 02:06 Past Med/Surg History Medical History (Updated 11/19/20 @ 04:45 by Skylar Pitt PA-C) Anxiety Bronchitis Cervical strain Fall GERD (gastroesophageal reflux disease) Hypokalemia Pain of left sternoclavicular joint Radicular pain of left upper extremity Tendinitis of right shoulder Tendinitis of right shoulder Vertigo Work related injury Surgical History (Updated 11/19/20 @ 02:36 by Skylar Pitt PA-C) No pertinent past surgical history Social History Smoking Status: Unknown if ever smoked marital status: Current Living Situation: Spouse current occupational status: employed 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 Feels Safe at Home: Yes Review of Systems A total of 10 systems reviewed and were otherwise negative Physical Exam Vital Signs Vital Signs - 24 hr 11/19/20 02:02 11/19/20 02:07 11/19/20 02:46 Temperature 36.8 C Temperature Source Oral Pulse Rate 94 H 84 Respiratory Rate 22 16 Blood Pressure 176/107 H 199/114 H Blood Pressure Mean 130 142 Pulse Oximetry 95 94 93 Oxygen Delivery Method Room Air Room Air Sepsis Recent Fever Within 48 Hours No Sepsis New/Unexplained Change in Mental Status N/A Sepsis Action Taken by Nursing No Action Required 11/19/20 02:49 11/19/20 03:00 11/19/20 03:30 Temperature Temperature Source Pulse Rate 84 79 79 Respiratory Rate 15 14 16 Blood Pressure 153/93 H 146/91 H 147/88 H Blood Pressure Mean 113 109 107 Pulse Oximetry 94 93 93 Oxygen Delivery Method Sepsis Recent Fever Within 48 Hours Sepsis New/Unexplained Change in Mental Status Sepsis Action Taken by Nursing 11/19/20 04:00 Temperature Temperature Source Pulse Rate 78 Respiratory Rate 15 Blood Pressure 142/89 H Blood Pressure Mean 106 Pulse Oximetry 94 Oxygen Delivery Method Sepsis Recent Fever Within 48 Hours Sepsis New/Unexplained Change in Mental Status Sepsis Action Taken by Nursing VITALS: Vitals are noted on the nurse's note and reviewed by myself. Vital signs hypertensive. GENERAL: White male coughing, in no acute distress, nondiaphoretic, well- developed well-nourished. SKIN: The skin was without rashes, erythema, edema, or bruising. There is no tenting of the skin. Capillary reflex less than 2 seconds. HEAD: Normocephalic atraumatic. EARS: External auditory canals clear, tympanic membranes pearly [place] without erythema or effusion bilaterally. EYES: Pupils equal round and reactive to light and accommodation. Conjunctivae without injection, sclerae without icterus. Extraocular movements intact. NOSE: Patent, turbinates without inflammation or discharge. MOUTH: Mucous membranes moist. Pharynx without erythema or exudate. Uvula midline. Airway patent. Tongue does not deviate. NECK: Supple without nuchal rigidity. No lymphadenopathy. No thyromegaly. Cervical spine is nontender. No JVD. HEART: Regular rate and rhythm LUNGS: Mild diffuse end expiratory t wheezes, No retractions or accessory muscle use. ABDOMEN: Positive bowel sounds x 4. Normal tympanic percussion. Soft, nontender, without masses or organomegaly. Penn sign negative. No guarding or rebound tenderness. No CVA tenderness MUSCULOSKELETAL: No muscle atrophy, erythema, or edema noted. NEURO: Patient was alert and oriented to person place and time. Normal sensation to light and sharp touch. No focal neurological deficits. Course Administered Medications Discontinued Medications Dexamethasone (Dexamethasone Sod Inj 4 Mg/Ml Vial) 6 mg IV ONE STA Stop: 11/19/20 05:10 Last Admin: 11/19/20 05:18 Dose: 6 mg Documented by: [id number] Sodium Chloride (Nss 1000ml) 1,000 mls @ 999 mls/hr IV .Q1H1M ONE Stop: 11/19/20 05:22 Last Infusion: 11/19/20 05:34 Dose: 0 mls/hr Documented by: [id number] Admin: 11/19/20 04:30 Dose: 999 mls/hr Documented by: [id number] Lorazepam (Ativan) 1 mg in 2 mls @ 2 mls/min IV NOW STA Stop: 11/19/20 04:28 Last Admin: 11/19/20 04:30 Dose: 2 mls/min Documented by: [id number] Ioversol (Optiray 320 125ml) 125 ml IV ONCE ONE Stop: 11/19/20 05:18 Last Admin: 11/19/20 05:17 Dose: 92 ml Documented by: [id number] Ketorolac Tromethamine (Ketorolac Tromethamine 15 Mg/Ml Vial) 10 mg IV NOW STA Stop: 11/19/20 02:13 Last Admin: 11/19/20 02:26 Dose: 10 mg Documented by: [id number] Medical Decision Making Medical Records Attestation: I reviewed the patient's medical records. Home Medications Current Medication List: was personally reviewed by me Laboratory Data Attestation: I reviewed the patient's lab results. Result diagrams: 11/19/20 02:20 11/19/20 03:47 Labs: Lab Results 11/19/20 11/19/20 11/19/20 Range/Units 02:20 02:20 02:20 WBC 2.91 L (4.8-10.8) K/uL RBC 5.72 (4.7-6.1) M/uL Hgb 16.2 (14.0-18.0) g/dL Hct 46.1 (42-52) % MCV 80.6 (80-100) fL MCH 28.3 (25-34) pg MCHC 35.1 (32-36) g/dL RDW Std Deviation 37.5 (36.4-46.3) fL RDW Coeff of Cornelius 12.7 (11.5-14.5) % Plt Count 98 L (130-400) K/uL MPV 10.5 H (7.4-10.4) fL Immature Gran % (Auto) 0.0 % Neut % (Auto) 50.6 % Lymph % (Auto) 34.7 % [place] % (Auto) 14.1 % Eos % (Auto) 0.3 % Baso % (Auto) 0.3 % Neut # (Auto) 1.47 (1.4-6.5) K/uL Lymph # (Auto) 1.01 L (1.2-3.4) K/uL [place] # (Auto) 0.41 (0.11-0.59) K/uL Eos # (Auto) 0.01 (0-0.5) K/uL Baso # (Auto) 0.01 (0-0.2) K/uL Immature Gran # (Auto) 0.00 (0.00-0.02) K/uL Platelet Estimate Decreased L (Normal) RBC Morphology Unremarkable D-Dimer Cancelled Sodium Cancelled Potassium Cancelled Chloride Cancelled Carbon Dioxide Cancelled Anion Gap Cancelled BUN Cancelled Creatinine Cancelled Est Cr Clr Drug Dosing Cancelled Est GFR ( Amer) Cancelled Est GFR (Non-Af Amer) Cancelled BUN/Creatinine Ratio Cancelled Glucose Cancelled Calcium Cancelled Total Bilirubin Cancelled AST Cancelled ALT Cancelled Alkaline Phosphatase Cancelled Troponin I Cancelled Total Protein Cancelled Albumin Cancelled Globulin Cancelled Albumin/Globulin Ratio Cancelled COVID-19 Eval Order SARS-CoV-2, RNA, NAAT (NEGATIVE) 11/19/20 11/19/20 11/19/20 Range/Units 02:20 02:20 03:47 WBC (4.8-10.8) K/uL RBC (4.7-6.1) M/uL Hgb (14.0-18.0) g/dL Hct (42-52) % MCV (80-100) fL MCH (25-34) pg MCHC (32-36) g/dL RDW Std Deviation (36.4-46.3) fL RDW Coeff of Cornelius (11.5-14.5) % Plt Count (130-400) K/uL MPV (7.4-10.4) fL Immature Gran % (Auto) % Neut % (Auto) % Lymph % (Auto) % [place] % (Auto) % Eos % (Auto) % Baso % (Auto) % Neut # (Auto) (1.4-6.5) K/uL Lymph # (Auto) (1.2-3.4) K/uL [place] # (Auto) (0.11-0.59) K/uL Eos # (Auto) (0-0.5) K/uL Baso # (Auto) (0-0.2) K/uL Immature Gran # (Auto) (0.00-0.02) K/uL Platelet Estimate (Normal) RBC Morphology D-Dimer 640 H* Sodium Potassium Chloride Carbon Dioxide Anion Gap BUN Creatinine Est Cr Clr Drug Dosing Est GFR ( Amer) Est GFR (Non-Af Amer) BUN/Creatinine Ratio Glucose Calcium Total Bilirubin AST ALT Alkaline Phosphatase Troponin I Total Protein Albumin Globulin Albumin/Globulin Ratio COVID-19 Eval [facility] SARS-CoV-2, RNA, NAAT POSITIVE A* (NEGATIVE) 11/19/20 Range/Units 03:47 WBC (4.8-10.8) K/uL RBC (4.7-6.1) M/uL Hgb (14.0-18.0) g/dL Hct (42-52) % MCV (80-100) fL MCH (25-34) pg MCHC (32-36) g/dL RDW Std Deviation (36.4-46.3) fL RDW Coeff of Cornelius (11.5-14.5) % Plt Count (130-400) K/uL MPV (7.4-10.4) fL Immature Gran % (Auto) % Neut % (Auto) % Lymph % (Auto) % [place] % (Auto) % Eos % (Auto) % Baso % (Auto) % Neut # (Auto) (1.4-6.5) K/uL Lymph # (Auto) (1.2-3.4) K/uL [place] # (Auto) (0.11-0.59) K/uL Eos # (Auto) (0-0.5) K/uL Baso # (Auto) (0-0.2) K/uL Immature Gran # (Auto) (0.00-0.02) K/uL Platelet Estimate (Normal) RBC Morphology D-Dimer Sodium 139 Potassium 3.9 Chloride 108 H Carbon Dioxide 25 Anion Gap 6.0 BUN 14 Creatinine 0.87 Est Cr Clr Drug Dosing 113.4 Est GFR ( Amer) 108.0 Est GFR (Non-Af Amer) 93.2 BUN/Creatinine Ratio 15.9 Glucose 122 H Calcium 8.1 L Total Bilirubin 0.7 AST 25 ALT 56 Alkaline Phosphatase 86 Troponin I < 0.015 Total Protein 7.3 Albumin 3.4 Globulin 3.9 Albumin/Globulin Ratio 0.9 COVID-19 Eval Order SARS-CoV-2, RNA, NAAT (NEGATIVE) MDM Narrative Prior records/ancillary studies reviewed. Triage Nursing notes reviewed. The patient's history was concerning for respiratory difficulties. Differential diagnosis: Etiologies such as infections, reactive airway disease, pneumonia, pneumothorax, COPD, CHF, cardiac ischemia, pulmonary embolism, musculoskeletal, gastrointestinal, as well as others were entertained. Physical examination: As above. ER treatment provided: An order was placed for continuous cardiac monitoring. The monitor shows a rate of 60-1 10 with a sinus rhythm. Toradol, IV fluids, Ativan On reassessment the patient felt better. Diagnostic interpretation by me: The electrocardiogram was left axis deviation, normal sinus, left bundle branch block, rate 86. EKG compared to prior EKG with new left bundle branch block interpreted by myself EKG ordered for chest pain I think arrhythmia is unlikely. EKG shows no interval abnormalities such as QT prolongation or WPW. There are no findings to suggest Brugada syndrome. Cardiac monitoring in the emergency department reveals no tachycardic or bradycardic dysrhythmia. Hypertrophic cardiomyopathy was considered but there are no clear historical elements pointing toward this. EKG is not suggestive. The QRS voltage is not extremely large and there are no suggestive Q waves. The labs revealed positive Covid. Negative troponin. Elevated D-dimer Imaging studies: Chest x-ray bilateral patchy opacities concerning for Covid my interpretation CTA CHEST: Impression: No acute pulmonary embolism 10.5 mm cyst seen in the left lobe of the liver. Mild splenomegaly. Small hiatus hernia. Owen multifocal consolidations are seen in the lower lobes, lingula and right middle lobe. This is consistent with Covid 19 pneumonia. Radiologist: Cecilio Riggs MD Consultation: A consultation was placed with Dr. Marie hospitalist. The case was discussed and diagnostics were reviewed. The patient was evaluated in the ER for further treatment. This appears to be consistent with Covid pneumonia with a new left bundle branch block with chest pain. Troponin was negative. Patient was medicated as above. He is agreeable treatment plan of admission. Medicine was consulted. By the evaluation outlined above emergent etiologies such as CHF, cardiac ischemia, pulmonary embolism, reactive airway disease, pneumothorax, musculoskeletal, serious bacterial infections, as well as others were deemed relatively unlikely. The pt informed about the findings as listed above. All questions were answered and pleased with the treatment. condition. The chart was completed utilizing [employer] voice recognition software. Gr ammatical errors, random word insertions, pronoun errors, and incomplete sentences are an occassional consequence of this system due to software limitations, ambient noise, and hardware issues. Any formal questions or concerns about the content, text, or information contained within the body of this dictation should be directly addressed to the physician assistant merchandiser for clarification. Impression & Plan COVID-19, Chest pain, Complete left bundle branch block (LBBB) determined by ECG Discharge Plan Visit Data Chief Complaint: Chest Pain Stated Complaint: CHEST PAIN, COUGH, CHILLS ED Provider: Gaudencio Maldonado ED Midlevel Provider: Skylar Pitt Discharge Problem: COVID-19, Chest pain, Complete left bundle branch block (LBBB) determined by EC G Patient Disposition: Admitted As Inpatient Condition: Good Forms Stand Alone Forms: [employer] Prescriptions Prescriptions: No Action cyclobenzaprine 10 mg tablet 10 mg PO BID PRN (Reason: Muscle Spasm) RF: 0 ezetimibe 10 mg tablet 10 mg PO DAILY RF: 0 Referrals Referrals: Shruthi Bradley PA-C [Primary Care Provider] -
[2020-11-19 03:00] LABS: Hematocrit (blood only) 46.1 % (42-52); Hemoglobin 16.2 g/dL (14.0-18.0); Mean Corpuscular Hemoglobin 28.3 pg (25-34); Mean Corpuscular Hgb Conc 35.1 g/dL (32-36); Mean Corpuscular Volume 80.6 fL (80-100); Mean Platelet Volume 10.5 fL (7.4-10.4); Platelet Count 98 K/uL (130-400); RDW Coefficient of Variation 12.7 % (11.5-14.5); RDW Standard Deviation 37.5 fL (36.4-46.3); Red Blood Count 5.72 M/uL (4.7-6.1); White Blood Count 2.91 K/uL (4.8-10.8)
[2020-11-19 03:05] LABS: Basophils # (auto) 0.01 K/uL (0-0.2); Basophils % (auto) 0.3 %; Eosinophils # (auto) 0.01 K/uL (0-0.5); Eosinophils % (auto) 0.3 %; Lymphocytes # (auto) 1.01 K/uL (1.2-3.4); Lymphocytes % (auto) 34.7 %; Monocytes # (auto) 0.41 K/uL (0.11-0.59); Monocytes % (auto) 14.1 %; Neutrophils # (auto) 1.47 K/uL (1.4-6.5); Neutrophils % (auto) 50.6 %; Platelet Estimate Decreased (Normal); RBC Morphology Unremarkable
[2020-11-19 04:20] LABS: D Dimer 640 ug/L FEU (0-500)
[2020-11-19] MEDS ORDERED: SODIUM CHLORIDE 0.9% 1000ML 1,000 ML IV ONE (04:22)
[2020-11-19 04:25] LABS: Alanine Aminotransferase 56 U/L (12-78); Albumin Level 3.4 gm/dl (3.4-5.0); BUN Creatinine Ratio 15.9 (10-20); Blood Urea Nitrogen 14 mg/dl (7-18); Calcium 8.1 mg/dl (8.5-10.1); Carbon Dioxide 25 mmol/L (21-32); Chloride 108 mmol/L (98-107); Creatinine Clr Calc Pharmacy 113.4 ml/min; Est GFR (Non-African American) 93.2; Glucose 122 mg/dl (70-99); Sodium 139 mmol/L (136-145)
[2020-11-19] MEDS ORDERED: LORazepam 1 MG/2 ML VIAL IV STA (04:27)
[2020-11-19 04:34] LABS: Albumin Globulin Ratio 0.9 (0.9-2); Alkaline Phosphatase 86 U/L (45-117); Aspartate Aminotransferase 25 U/L (15-37); Bilirubin,Total 0.7 mg/dl (0.2-1); Globulin 3.9 gm/dl (2.5-4.0); Potassium 3.9 mmol/L (3.5-5.1); Total Protein 7.3 gm/dl (6.4-8.2); Troponin I < 0.015 ng/ml (0-0.045)
[2020-11-19] MEDS ORDERED: dexAMETHasone 6 MG in DEXTROSE 5% 25 ML IV STA (05:00)
[2020-11-19] MEDS ORDERED: DEXAMETHASONE SOD INJ 4 MG/ML VIAL IV STA (05:09)
[2020-11-19] MEDS ORDERED: OPTIRAY 320 125ml IV ONE (05:17)
--- NOTE | 2020-11-19 06:11 | History & Physical Report ---
Date of Service November 19, 2020 Assessment & Plan (1) COVID-19: COVID-19 pneumonia Lowest O2 sats at the ER was 93 on room air Hypertensive urgency secondary to illness Likely chronic hypertension given concentric LVH on outpatient TTE 2018 New left bundle branch block Hyperglycemia rule out DM Medical telemetry Decadron indicated for COVID-19 pneumonia causing some degree of hypoxemia Initiate Amlodipine TTE Re: New LBBB Check hemoglobin A1c DVT prophylaxis. Videollanox subcu Full code Text document was generated using [employer] voice recognition software. It may contain grammatical or spelling errors. Kindly contact undersigned for clarification of any documentation item in question. History of Present Illness Chief Complaint: Cough, shortness of breath Primary Care Provider: Shruthi Bradley PA-C History obtained from patient and records. Medical history significant for hyperlipidemia, GERD. Last week, patient self quarantined after possible COVID-19 exposure to a family member. A day later, patient noted sinus congestion symptoms followed by dry cough occasionally productive of clear sputum. Associated watery diarrhea with mild abdominal cramping. Patient subsequently noted chest heaviness and shortness of breath. Patient drove himself to the ER early this morning. 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 Allergies Allergy/AdvReac Type Severity Reaction Status Date / Time No Known Allergies Allergy Verified 11/19/20 02:06 Home Medications Medication Instructions Recorded Confirmed Type cyclobenzaprine 10 mg PO BID PRN 09/20/20 11/19/20 History ezetimibe 10 mg PO DAILY 09/20/20 11/19/20 History Past Med/Surg History Medical History (Updated 11/19/20 @ 04:45 by Skylar Pitt PA-C) Anxiety Bronchitis Cervical strain Fall GERD (gastroesophageal reflux disease) Hypokalemia Pain of left sternoclavicular joint Radicular pain of left upper extremity Tendinitis of right shoulder Tendinitis of right shoulder Vertigo Work related injury Surgical History (Updated 11/19/20 @ 02:36 by Skylar Pitt PA-C) No pertinent past surgical history Social History Smoking Status: Never smoker Second Hand Exposure: No; Do You Dip or Chew Tobacco: No; Tobacco Cessation Education Requested by Patient: No Hx Alcohol Use: No Hx Substance Use: No Preferred Language: Tamazight Communication Ability: Effective Data Center 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 Required: No Beliefs That Will Affect Care: None marital status: Current Living Situation: Spouse current occupational status: employed 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 [employer] Other Information That Helps Us Care for You: No Feels Safe at Home: Yes Safety Concerns: Feels Safe At This Time Assistive Devices: Glasses and Hearing Aid - Bilateral Review of Systems Review of Systems: As per HPI, all 10 systems reviewed, all other ROS negative Physical Exam Physical Exam: GENERAL: Slightly uncomfortable, pleasant, obese, no respiratory distress SKIN: Normal color, warm HEENT: Alopecia, bespectacled, pink palpebral conjunctivae, no ptosis, dry buccal mucosa NECK : Supple, short neck, no tenderness CHEST : Decreased breath sounds, no tenderness HEART : RRR, no obvious murmurs ABDOMEN: Some distention, nontender EXTREMITIES : Minimal LE swelling, no LE tenderness, no other conspicuous deformities noted NEUROLOGIC : Coherent, no facial asymmetry, no other gross focality Results & Data Results & Data ([facility]) Vital Signs (Past 12 Hours) Vital Signs Temp Pulse Resp BP Pulse Ox 11/19/20 04:00 78 15 142/89 H 94 11/19/20 03:30 79 16 147/88 H 93 11/19/20 03:00 79 14 146/91 H 93 11/19/20 02:49 84 15 153/93 H 94 11/19/20 02:46 93 11/19/20 02:07 84 16 199/114 H 94 11/19/20 02:02 36.8 C 94 H 22 176/107 H 95 Laboratory Results Laboratory Results WBC 2.91 K/uL (4.8-10.8) L 11/19/20 02:20 RBC 5.72 M/uL (4.7-6.1) 11/19/20 02:20 Hgb 16.2 g/dL (14.0-18.0) 11/19/20 02:20 Hct 46.1 % (42-52) 11/19/20 02:20 MCV 80.6 fL (80-100) 11/19/20 02:20 MCH 28.3 pg (25-34) 11/19/20 02:20 MCHC 35.1 g/dL (32-36) 11/19/20 02:20 RDW Std Deviation 37.5 fL (36.4-46.3) 11/19/20 02:20 RDW Coeff of Cornelius 12.7 % (11.5-14.5) 11/19/20 02:20 Plt Count 98 K/uL (130-400) L 11/19/20 02:20 MPV 10.5 fL (7.4-10.4) H 11/19/20 02:20 Immature Gran % (Auto) 0.0 % 11/19/20 02:20 Neut % (Auto) 50.6 % 11/19/20 02:20 Lymph % (Auto) 34.7 % 11/19/20 02:20 Hall % (Auto) 14.1 % 11/19/20 02:20 Eos % (Auto) 0.3 % 11/19/20 02:20 Baso % (Auto) 0.3 % 11/19/20 02:20 Neut # (Auto) 1.47 K/uL (1.4-6.5) 11/19/20 02:20 Lymph # (Auto) 1.01 K/uL (1.2-3.4) L 11/19/20 02:20 Hall # (Auto) 0.41 K/uL (0.11-0.59) 11/19/20 02:20 Eos # (Auto) 0.01 K/uL (0-0.5) 11/19/20 02:20 Baso # (Auto) 0.01 K/uL (0-0.2) 11/19/20 02:20 Immature Gran # (Auto) 0.00 K/uL (0.00-0.02) 11/19/20 02:20 Platelet Estimate Decreased (Normal) L 11/19/20 02:20 RBC Morphology Unremarkable 11/19/20 02:20 D-Dimer 640 ug/L FEU (0-500) H* 11/19/20 03:47 Sodium 139 mmol/L (136-145) 11/19/20 03:47 Potassium 3.9 mmol/L (3.5-5.1) 11/19/20 03:47 Chloride 108 mmol/L (98-107) H 11/19/20 03:47 Carbon Dioxide 25 mmol/L (21-32) 11/19/20 03:47 Anion Gap 6.0 (3-11) 11/19/20 03:47 BUN 14 mg/dl (7-18) 11/19/20 03:47 Creatinine 0.87 mg/dl (0.6-1.4) 11/19/20 03:47 Est Cr Clr Drug Dosing 113.4 ml/min 11/19/20 03:47 Est GFR ( Amer) 108.0 11/19/20 03:47 Est GFR (Non-Af Amer) 93.2 11/19/20 03:47 BUN/Creatinine Ratio 15.9 (10-20) 11/19/20 03:47 Glucose 122 mg/dl (70-99) H 11/19/20 03:47 Calcium 8.1 mg/dl (8.5-10.1) L 11/19/20 03:47 Total Bilirubin 0.7 mg/dl (0.2-1) 11/19/20 03:47 AST 25 U/L (15-37) 11/19/20 03:47 ALT 56 U/L (12-78) 11/19/20 03:47 Alkaline Phosphatase 86 U/L (45-117) 11/19/20 03:47 Troponin I < 0.015 ng/ml (0-0.045) 11/19/20 03:47 Total Protein 7.3 gm/dl (6.4-8.2) 11/19/20 03:47 Albumin 3.4 gm/dl (3.4-5.0) 11/19/20 03:47 Globulin 3.9 gm/dl (2.5-4.0) 11/19/20 03:47 Albumin/Globulin Ratio 0.9 (0.9-2) 11/19/20 03:47 COVID-19 Eval Order Covid19 IDNow [facility] 11/19/20 02:20 SARS-CoV-2, RNA, NAAT POSITIVE (NEGATIVE) A* 11/19/20 02:[address] chest initial read: No acute pulmonary embolism. 10.5 mm cyst left lobe liver. Mild splenomegaly. Small hiatal hernia. Multifocal consolidation lower lobes, lingula and right middle lobe consistent with COVID-19 pneumonia. EKG as per my interpretation: Rate 80, NSR, LAD, LAFB, LBBB
[2020-11-19] MEDS ORDERED: amLODIPine BESYLATE 5 MG TAB PO STA (06:29)
--- NOTE | 2020-11-19 06:47 | CT Scan Report ---
CT ANGIOGRAPHY OF THE CHEST, PULMONARY EMBOLUS PROTOCOL CLINICAL HISTORY: Shortness of breath. Covid. COMPARISON STUDY: Chest CT May 04, 2013. Chest radiograph November 19, 2020. TECHNIQUE: Following IV administration of 92 mL of Optiray-320, helical axial images of the chest wer e obtained utilizing the pulmonary embolus protocol. Maximal intensity projections and sagittal and coronal reformats were viewed on an independent 3D workstation. IV contrast was administered without complication. Automated exposure control was utilized for the study. A dose lowering technique was utilized adhering to the principles of ALARA. CT DOSE: 1546.66 mGy.cm FINDINGS: No pulmonary emboli are identified. There is no thoracic aortic dissection. Small hiatal h ernia is present. No enlarged thoracic lymph nodes are noted. No pneumothorax or pleural effusion is noted. Note is made of a prominent multifocal groundglass opacities and foci of consolidation. There is no cavitation. Bony thorax is unremarkable. Mild splenomegaly is noted. A few hepatic cysts are no kolby. These were shown on prior chest CT. IMPRESSION: 1. No pulmonary emboli identified. 2. Multifocal consolidation and groundglass opacities within the lungs consistent with a viral pneumo haider. 3. Mild splenomegaly. ACT 112: Negative or not required by law. Electronically signed by: Madan Flores M.D. 11/19/2020 6:46 AM
[2020-11-19 07:19] LABS: Estimated Average Glucose 120 mg/dl; Hemoglobin A1C 5.8 % (4.5-5.6)
--- NOTE | 2020-11-19 07:48 | XRay Report ---
XR chest 1V portable HISTORY: Atypical Chest Pain COMPARISON: 01/22/2017. FINDINGS: No pneumothorax. No pleural effusions. The heart remains mildly enlarged. There are low james g volumes. There are hazy airspace opacities within the bilateral mid to lower lung zones. This likel y represents a viral pneumonia. IMPRESSION: Hazy airspace opacities within the mid to lower lung zones likely representing a viral pneumonia. ACT 112: Negative or not required by law. Electronically signed by: Curly Okeefe M.D. 11/19/2020 7:47 AM
[2020-11-19] MEDS ORDERED: traMADol HCL 50 MG TABLET PO PRN (08:54)
[2020-11-19] MEDS ORDERED: CYCLOBENZAPRINE HCL 10 MG TAB PO PRN (08:54)
[2020-11-19] MEDS ORDERED: PROMETHAZINE HCL 12.5 MG in SODIUM CHLORIDE 0.9% 50 ML IV PRN (08:54)
[2020-11-19] MEDS ORDERED: ALBUTEROL HFA 8 GM INHALER INH PRN (08:54)
[2020-11-19] MEDS ORDERED: ACETAMINOPHEN 325 MG TAB PO PRN (08:54)
[2020-11-19] MEDS ORDERED: NSS + 20MEQ KCL 20 MEQ/1,000 ML BAG IV ONE (09:00)
[2020-11-19] MEDS: ENOXAPARIN INJ 40 MG/0.4 ML SYR SQ SCH (10:26)
[2020-11-19] MEDS: guaiFENesin 600 MG TABCR PO SCH ×2 (10:26→19:58)
[2020-11-19] MEDS: EZETIMIBE 10 MG TABLET PO SCH (10:27)
--- NOTE | 2020-11-19 17:35 | Hospitalist Progress Note ---
Date of Service November 19, 2020 Assessment & Plan (1) COVID-19: Present on admission with cough, low energy and chest pain COVID 19 positive CTA chest showed no pulmonary emboli identified. Multifocal consolidation and groundglass opacities within the lungs consistent with a viral pneumonia. Pt symptoms has been going for a week and feels like that he is at the end of his symptoms since he was getting better Dexamethasone was starting in the ER Not a candidate for plasma convalescent since symptoms improves and saturated 94% and above currently No remdesivir since symptoms improved Will check inflammatory marker ESR, CRP, LDH and ferrition Will hold on abx for now Will repeat procalcitonin tomorrow Chest pain Atypical in presentation possible related to cough Currently denies any chest pain Troponin wnl ECHO pending Diarrhea possible related to COVID 19 Continue IVF Monitor electrolytes New LBBB EKG showed no ST changes Will consult cardiology Hypertension BP elevated Low Mg Mg 1.7 on admission Mg replaced DVT px on Lovenox Code status full code Admission and Anticipated Discharge Date Admission Date: November 19, 2020 Subjective Pt was seen and examined for follow up of COVID 19 Lying in bed with no distress playing in his phone before entering his room He said said that his breathing and his energy improves He said that he is having a dry cough He is saturated well on RA Denies any chest pain, palpitation, dizziness and SOB Review of Systems Review of Systems: All systems reviewed & are unremarkable except as noted in Subjective Physical Exam Physical Exam: General- No acute distress Head- atraumatic Eyes- PERRL, EOMI, ENT- oropharynx clear Neck- supple, no JVD Lungs- clear to auscultation Heart- regular rhythm; no murmur Abdomen- normal bowel sounds, soft, nontender Extremities- no calf tenderness Neuro- alert, oriented x 3; PERRL, EOMI; no facial palsy; no dysarthria Skin- warm & dry Results & Data Results & Data ([facility]) Vital Signs (Past 12 Hours) Vital Signs Temp Pulse Pulse Resp BP BP BP 11/19/20 16:00 36.7 C 88 86 20 161/97 H 11/19/20 11:48 36.5 C 92 H 19 158/97 H 11/19/20 10:00 87 11/19/20 07:33 37.1 C 90 20 162/99 H 162/107 H 11/19/20 06:30 81 15 159/91 H 11/19/20 05:30 83 14 143/95 H Pulse Ox Pulse Ox 11/19/20 16:00 94 94 11/19/20 11:48 93 11/19/20 10:00 11/19/20 07:33 94 11/19/20 06:30 96 11/19/20 05:30 94
[2020-11-19] MEDS ORDERED: MAGNESIUM SULFATE / D5W 1 GM/100 ML BAG IV ONE (18:00)
[2020-11-19] MEDS ORDERED: MELATONIN 3 MG TAB PO PRN (21:28)
--- NOTE | 2020-11-20 06:09 | Electrocardiogram Report ---
Test Reason : Blood Pressure : / mmHG Vent. Rate : 086 BPM Atrial Rate : 086 BPM P-R Int : 178 ms QRS Dur : 138 ms QT Int : 400 ms P-R-T Axes : 033 -25 094 degrees QTc Int : 478 ms Normal sinus rhythm Left bundle branch block Abnormal ECG When compared with ECG of 22-DEC-2017 11:12, Left bundle branch block is now Present Confirmed by Mark Beard ([id number]) on 11/20/2020 6:09:00 AM Referred By: REFERRED SELF Confirmed By:Mark Beard
--- NOTE | 2020-11-20 06:09 | Electrocardiogram Report ---
Test Reason : Blood Pressure : / mmHG Vent. Rate : 081 BPM Atrial Rate : 081 BPM P-R Int : 188 ms QRS Dur : 134 ms QT Int : 410 ms P-R-T Axes : 033 -29 087 degrees QTc Int : 476 ms Normal sinus rhythm Left bundle branch block Abnormal ECG When compared with ECG of 19-NOV-2020 02:06, No significant change was found Confirmed by Mark Beard ([id number]) on 11/20/2020 6:09:11 AM Referred By: REFERRED SELF Confirmed By:Mark Beard
[2020-11-20 07:49] LABS: Hematocrit (blood only) 43.9 % (42-52); Hemoglobin 15.4 g/dL (14.0-18.0); Lymphocytes # (auto) 1.19 K/uL (1.2-3.4); Lymphocytes % (auto) 30.4 %; Mean Corpuscular Hemoglobin 28.2 pg (25-34); Mean Corpuscular Hgb Conc 35.1 g/dL (32-36); Mean Corpuscular Volume 80.3 fL (80-100); Mean Platelet Volume 10.3 fL (7.4-10.4); Monocytes # (auto) 0.58 K/uL (0.11-0.59); Monocytes % (auto) 14.8 %; Neutrophils # (auto) 2.15 K/uL (1.4-6.5); Neutrophils % (auto) 54.8 %; Platelet Count 114 K/uL (130-400); RDW Coefficient of Variation 12.9 % (11.5-14.5); Red Blood Count 5.47 M/uL (4.7-6.1); White Blood Count 3.92 K/uL (4.8-10.8)
[2020-11-20 08:22] LABS: Alanine Aminotransferase 50 U/L (12-78); Albumin Level 3.3 gm/dl (3.4-5.0); Aspartate Aminotransferase 23 U/L (15-37); BUN Creatinine Ratio 18.9 (10-20); Bilirubin Direct < 0.1 mg/dl (0-0.2); Blood Urea Nitrogen 15 mg/dl (7-18); C Reactive Protein 1.25 mg/dl (0-0.29); Calcium 8.4 mg/dl (8.5-10.1); Carbon Dioxide 25 mmol/L (21-32); Chloride 111 mmol/L (98-107); Creatinine Clr Calc Pharmacy 121.3 ml/min; Est GFR (African American) 111.2; Est GFR (Non-African American) 95.9; Glucose 128 mg/dl (70-99); Magnesium 2.1 mg/dl (1.8-2.4); Potassium 3.9 mmol/L (3.5-5.1); Sodium 141 mmol/L (136-145)
[2020-11-20 08:25] LABS: Alkaline Phosphatase 80 U/L (45-117); Bilirubin,Total 0.6 mg/dl (0.2-1); Ferritin 412.2 ng/ml (8-388); Total Protein 6.9 gm/dl (6.4-8.2)
[2020-11-20] MEDS: ENOXAPARIN INJ 40 MG/0.4 ML SYR SQ SCH (08:59)
[2020-11-20] MEDS ORDERED: dexAMETHasone 6 MG in DEXTROSE 5% 25 ML IV SCH (09:00)
[2020-11-20] MEDS ORDERED: amLODIPine BESYLATE 5 MG TAB PO SCH (09:00)
[2020-11-20] MEDS: guaiFENesin 600 MG TABCR PO SCH (09:00)
[2020-11-20] MEDS: EZETIMIBE 10 MG TABLET PO SCH (09:01)
[2020-11-20] MEDS ORDERED: SODIUM CHLORIDE 0.65% NA SOLN 45 ML (OCEAN) PRN (09:43)
[2020-11-20] MEDS ORDERED: LOSARTAN POTASSIUM 25 MG TAB PO SCH (09:45)
[2020-11-20] MEDS ORDERED: FLUTICASONE PROPIONATE NA SPR 16 GM BTL SCH (09:45)
[2020-11-20] MEDS ORDERED: ASPIRIN 81 MG ECTAB PO SCH (09:45)
[2020-11-20] MEDS ORDERED: FEXOFENADINE 60MG/PSEUDOEPHEDRINE 120MG TAB PO SCH (09:45)
--- NOTE | 2020-11-20 10:04 | Cardiology Consultation ---
Date of Consultation November 20, 2020 Assessment & Plan (1) COVID-19: (2) Pneumonia due to COVID-19 virus: (3) Pleuritic chest pain: (4) Acute sinusitis: (5) Complete left bundle branch block (LBBB) determined by ECG: (6) Hypertension: Pt presents with complaints of acute on chronic post nasal drip, cough and pleuritic chest discomfort denies symptoms suggestive of ischemic heart disease Covid positive, CTA chest consistent with viral pneumonia new LBBB on EKG Stress test 2019 nonischemic, resting study unremarkable CTA of chest personally reviewed: normal biventricular size without obvious obstructive disease (unable to completely rule out CAD within the scope of this imaging modality) initial trop negative, repeating now check BMP now for sign of myocardial strain given the ongoing pandemic, current cardiac guidelines state to limit exposure of staff to infection unless testing would alter course of treatment given Mr. Carey's lack of ischemic symptoms further testing at this point would not alter course of treatment will hold off on further cardiac testing at this time should above blood work come back unremarkable then would recommend outpatient cardiac follow up to complete work up of new LBBB should symptoms develop then further testing will be performed I discussed this with Mr. Carey at great lengths and he is in agreement with plan recommend treating the patient for his presenting symptoms of acute sinusitis will start flonase, fexofenadine, pseudophedrine and saline nasal spray will defer to primary team whether or not antibiotics are warranted treatment of COVID related pneumonia per primary team as well History of Present Illness Reason for Consultation: new LBBB on EKG Requesting Physician: Dr. Mujica Attending Physician: Ladarius Dickens MD History of Present Illness Mr. Carey is a very pleasant 60 yo M who presented to [facility] with complaints of persistent cough. He is currently in COVID isolation, in order to limit staff exposure consultation was performed via telephone conference with the patient, chart review and discussion with nursing. He states that he has been having issues with sinusitis for the last week or so. He states his normally happens to him in the spring but this year seems to be worse than normal. He has been having a nonproductive cough and runny nose. He states that the cough became so frequent that he started developing some pleuritic chest discomfort. Stating that whenever he takes a deep breath the top of his left rib cage would develop a sharp jabbing sensation that quickly resolved with exhalation. He denies any exertional shortness of breath or chest pain. He was sleeping a lot for the last week but then recently he has not been sleeping well at night due to frequent coughing. Last night he again awoke with coughing and felt a little bit short of breath. At that point he became anxious and presented to the emergency department. Upon arrival he tested positive for COVID-19 and an EKG showed new left bundle branch block. Again he denies any exertional chest pain or shortness of breath. Given the fact he did complain of chest discomfort of a pleuritic nature he was admitted and cardiology consultation was placed. Currently, he states that his complaints continue to center around his sinusitis and otherwise feels well. He denies any known COVID exposures. Allergies Allergy/AdvReac Type Severity Reaction Status Date / Time No Known Allergies Allergy Verified 11/19/20 02:06 Home Medications Medication Instructions Recorded Confirmed Type cyclobenzaprine 10 mg PO BID PRN 09/20/20 11/19/20 History ezetimibe 10 mg PO DAILY 09/20/20 11/19/20 History aspirin 81 mg PO QAM 30 Days #30 tab 11/20/20 Rx guaifenesin [Mucinex] 600 mg PO Q12 #20 tab 11/20/20 Rx losartan 25 mg PO QAM 30 Days #30 tab 11/20/20 Rx sodium chloride [Saline Mist] 2 spray NA Q2H PRN #1 ml 11/20/20 Rx Patient History Medical History Anxiety Bronchitis Cervical strain Fall GERD (gastroesophageal reflux disease) Hypokalemia Pain of left sternoclavicular joint Radicular pain of left upper extremity Tendinitis of right shoulder Tendinitis of right shoulder Vertigo Work related injury Surgical History No pertinent past surgical history Social History Smoking Status: Never smoker Second Hand Exposure: No; Do You Dip or Chew Tobacco: No; Tobacco Cessation Education Requested by Patient: No Hx Alcohol Use: No Hx Substance Use: No Preferred Language: Urdu Communication Ability: Effective Mower Operator Required: No Beliefs That Will Affect Care: None marital status: Current Living Situation: Spouse current occupational status: employed 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 Results & Data ([facility]) Vital Signs (Past 12 Hours) Vital Signs Temp Pulse Pulse Resp BP Pulse Ox 11/20/20 08:04 36.4 C L 67 16 158/94 H 93 11/20/20 04:18 36.5 C 66 18 154/91 H 94 11/19/20 23:27 36.7 C 70 19 138/85 94 11/19/20 22:20 74 Laboratory Results Laboratory Results - last 24 hr 11/19/20 11/20/20 11/20/20 03:47 07:29 07:29 WBC 3.92 L RBC 5.47 Hgb 15.4 Hct 43.9 MCV 80.3 MCH 28.2 MCHC 35.1 RDW Std Deviation 38.0 RDW Coeff of Cornelius 12.9 Plt Count 114 L MPV 10.3 Immature Gran % (Auto) 0.0 Neut % (Auto) 54.8 Lymph % (Auto) 30.4 Boundary % (Auto) 14.8 Eos % (Auto) 0.0 Baso % (Auto) 0.0 Neut # (Auto) 2.15 Lymph # (Auto) 1.19 L Boundary # (Auto) 0.58 Eos # (Auto) 0.00 Baso # (Auto) 0.00 Immature Gran # (Auto) 0.00 ESR 18 H Sodium Potassium Chloride Carbon Dioxide Anion Gap BUN Creatinine Est Cr Clr Drug Dosing Est GFR ( Amer) Est GFR (Non-Af Amer) BUN/Creatinine Ratio Glucose Calcium Magnesium 1.7 L Ferritin Total Bilirubin Direct Bilirubin AST ALT Alkaline Phosphatase Lactate Dehydrogenase C-Reactive Protein Total Protein Albumin Procalcitonin 11/20/20 11/20/20 11/20/20 07:29 07:29 07:29 WBC RBC Hgb Hct MCV MCH MCHC RDW Std Deviation RDW Coeff of Cornelius Plt Count MPV Immature Gran % (Auto) Neut % (Auto) Lymph % (Auto) Boundary % (Auto) Eos % (Auto) Baso % (Auto) Neut # (Auto) Lymph # (Auto) Boundary # (Auto) Eos # (Auto) Baso # (Auto) Immature Gran # (Auto) ESR Sodium 141 Potassium 3.9 Chloride 111 H Carbon Dioxide 25 Anion Gap 5.0 BUN 15 Creatinine 0.81 Est Cr Clr Drug Dosing 121.3 Est GFR ( Amer) 111.2 Est GFR (Non-Af Amer) 95.9 BUN/Creatinine Ratio 18.9 Glucose 128 H Calcium 8.4 L Magnesium 2.1 Ferritin 412.2 H Total Bilirubin 0.6 Direct Bilirubin < 0.1 AST 23 ALT 50 Alkaline Phosphatase 80 Lactate Dehydrogenase 178 C-Reactive Protein 1.25 H Total Protein 6.9 Albumin 3.3 L Procalcitonin Pending Diagnostic Findings Laboratory Results WBC 3.92 K/uL (4.8-10.8) L 11/20/20 07:29 RBC 5.47 M/uL (4.7-6.1) 11/20/20 07:29 Hgb 15.4 g/dL (14.0-18.0) 11/20/20 07:29 Hct 43.9 % (42-52) 11/20/20 07:29 MCV 80.3 fL (80-100) 11/20/20 07:29 MCH 28.2 pg (25-34) 11/20/20 07:29 MCHC 35.1 g/dL (32-36) 11/20/20 07:29 RDW Std Deviation 38.0 fL (36.4-46.3) 11/20/20 07:29 RDW Coeff of Cornelius 12.9 % (11.5-14.5) 11/20/20 07:29 Plt Count 114 K/uL (130-400) L 11/20/20 07:29 MPV 10.3 fL (7.4-10.4) 11/20/20 07:29 Immature Gran % (Auto) 0.0 % 11/20/20 07:29 Neut % (Auto) 54.8 % 11/20/20 07:29 Lymph % (Auto) 30.4 % 11/20/20 07:29 Boundary % (Auto) 14.8 % 11/20/20 07:29 Eos % (Auto) 0.0 % 11/20/20 07:29 Baso % (Auto) 0.0 % 11/20/20 07:29 Neut # (Auto) 2.15 K/uL (1.4-6.5) 11/20/20 07:29 Lymph # (Auto) 1.19 K/uL (1.2-3.4) L 11/20/20 07:29 Boundary # (Auto) 0.58 K/uL (0.11-0.59) 11/20/20 07:29 Eos # (Auto) 0.00 K/uL (0-0.5) 11/20/20 07:29 Baso # (Auto) 0.00 K/uL (0-0.2) 11/20/20 07:29 Immature Gran # (Auto) 0.00 K/uL (0.00-0.02) 11/20/20 07:29 Platelet Estimate Decreased (Normal) L 11/19/20 02:20 RBC Morphology Unremarkable 11/19/20 02:20 ESR 18 mm/hr (0-14) H 11/20/20 07:29 D-Dimer 640 ug/L FEU (0-500) H* 11/19/20 03:47 Sodium 141 mmol/L (136-145) 11/20/20 07:29 Potassium 3.9 mmol/L (3.5-5.1) 11/20/20 07:29 Chloride 111 mmol/L (98-107) H 11/20/20 07:29 Carbon Dioxide 25 mmol/L (21-32) 11/20/20 07:29 Anion Gap 5.0 (3-11) 11/20/20 07:29 BUN 15 mg/dl (7-18) 11/20/20 07:29 Creatinine 0.81 mg/dl (0.6-1.4) 11/20/20 07:29 Est Cr Clr Drug Dosing 121.3 ml/min 11/20/20 07:29 Est GFR ( Amer) 111.2 11/20/20 07:29 Est GFR (Non-Af Amer) 95.9 11/20/20 07:29 BUN/Creatinine Ratio 18.9 (10-20) 11/20/20 07:29 Glucose 128 mg/dl (70-99) H 11/20/20 07:29 Estimat Average Glucose 120 mg/dl 11/19/20 02:20 Hemoglobin A1c 5.8 % (4.5-5.6) H 11/19/20 02:20 Calcium 8.4 mg/dl (8.5-10.1) L 11/20/20 07:29 Magnesium 2.1 mg/dl (1.8-2.4) 11/20/20 07:29 Ferritin 412.2 ng/ml (8-388) H 11/20/20 07:29 Total Bilirubin 0.6 mg/dl (0.2-1) 11/20/20 07:29 Direct Bilirubin < 0.1 mg/dl (0-0.2) 11/20/20 07:29 AST 23 U/L (15-37) 11/20/20 07:29 ALT 50 U/L (12-78) 11/20/20 07:29 Alkaline Phosphatase 80 U/L (45-117) 11/20/20 07:29 Lactate Dehydrogenase 178 U/L (87-241) 11/20/20 07:29 Troponin I < 0.015 ng/ml (0-0.045) 11/19/20 03:47 C-Reactive Protein 1.25 mg/dl (0-0.29) H 11/20/20 07:29 Total Protein 6.9 gm/dl (6.4-8.2) 11/20/20 07:29 Albumin 3.3 gm/dl (3.4-5.0) L 11/20/20 07:29 Globulin 3.9 gm/dl (2.5-4.0) 11/19/20 03:47 Albumin/Globulin Ratio 0.9 (0.9-2) 11/19/20 03:47 COVID-19 Eval Order Covid19 IDNow [facility] 11/19/20 02:20 SARS-CoV-2, RNA, NAAT POSITIVE (NEGATIVE) A* 11/19/20 02:20 Medications Administered Current Inpatient Medications Acetaminophen (Acetaminophen 325 Mg Tab) 650 mg PO Q4H PRN PRN Reason: Pain or Fever Stop: 12/19/20 08:53 Albuterol (Albuterol Hfa 8 Gm Inhaler) 2 puffs INH Q2H PRN PRN Reason: sob/wheeze Stop: 12/19/20 08:53 Amlodipine Besylate (Amlodipine Besylate 5 Mg Tab) 2.5 mg PO QAM PENDING SALE TO [facility] Stop: 12/20/20 08:59 Last Admin: 11/20/20 09:00 Dose: 2.5 mg Documented by: Aspirin (Aspirin 81 Mg Ectab) 81 mg PO QAM PENDING SALE TO [facility] Stop: 12/20/20 09:44 Cyclobenzaprine HCl (Cyclobenzaprine Hcl 10 Mg Tab) 10 mg PO BID PRN PRN Reason: Muscle Spasm Stop: 12/19/20 08:53 Ezetimibe (Ezetimibe 10 Mg Tablet) 10 mg PO DAILY KENDALL Stop: 12/19/20 08:59 Last Admin: 11/20/20 09:01 Dose: 10 mg Documented by: Enoxaparin Sodium (Enoxaparin Inj 40 Mg/0.4 Ml Syr) 40 mg SQ QAM PENDING SALE TO [facility] Stop: 12/19/20 08:59 Last Admin: 11/20/20 08:59 Dose: 40 mg Documented by: Fexofenadine HCl/Pseudoephedrine (Fexofenadine 60mg/Pseudoephedrine 120mg Tab) 1 tab PO BID PENDING SALE TO [facility] Stop: 12/20/20 09:44 Fluticasone Propionate (Fluticasone Propionate Na Spr 16 Gm Btl) 2 sprays NA DAILY PENDING SALE TO [facility] Stop: 12/20/20 09:44 Guaifenesin (Guaifenesin 600 Mg Tabcr) 600 mg PO Q12 KENDALL Stop: 12/19/20 08:59 Last Admin: 11/20/20 09:00 Dose: 600 mg Documented by: Promethazine HCl 12.5 mg/ (Sodium Chloride) 50.5 mls @ 202 mls/hr IV Q6H PRN PRN Reason: Nausea And Vomiting Stop: 12/19/20 08:53 Dexamethasone 6 mg/ Dextrose 25.6 mls @ 100 mls/hr IV DAILY KENDALL Stop: 12/20/20 08:59 Losartan Potassium (Losartan Potassium 25 Mg Tab) 25 mg PO QAM PENDING SALE TO [facility] Stop: 12/20/20 09:44 Melatonin (Melatonin 3 Mg Tab) 3 mg PO HS PRN PRN Reason: Sleep Stop: 12/19/20 21:27 Last Admin: 11/19/20 23:28 Dose: 3 mg Documented by: Sodium Chloride (Sodium Chloride 0.65% Na Soln 45 Ml (Edmond)) 2 sprays NA Q2H PRN PRN Reason: Cough Stop: 12/20/20 09:42 Tramadol HCl (Tramadol Hcl 50 Mg Tablet) 25 - 50 mg PO Q4H PRN PRN Reason: Pain Stop: 12/19/20 08:53
[2020-11-20 10:15] LABS: Chol HDL Ratio 6; Cholesterol 191 mg/dl (0-200); HDL Cholesterol 32 mg/dl; LDL Cholesterol Calculated 124 mg/dl; NT Pro B Type Natriuretic Pept 57 pg/ml (0-900); Triglycerides 175 mg/dl (0-150); Troponin I < 0.015 ng/ml (0-0.045); VLDL Cholesterol 35 mg/dl
--- NOTE | 2020-11-20 17:00 | Hospitalist Progress Note ---
Date of Service November 20, 2020 Assessment & Plan (1) COVID-19: Present on admission with cough, low energy and chest pain COVID 19 positive CTA chest showed no pulmonary emboli identified. Multifocal consolidation and groundglass opacities within the lungs consistent with a viral pneumonia. Pt symptoms has been going for a week and feels like that he is at the end of his symptoms since he was getting better Dexamethasone was starting in the ER , then continue Not a candidate for plasma convalescent since symptoms improves and saturated 94% and above currently No remdesivir since symptoms improved ESR 18, ferritin 412, CRP 1.2, LDH and procalcitonin normal Continue to hold abx Chest pain Atypical in presentation possible related to cough, pleuritic chest pain Currently denies any chest pain Troponin wnl cardiology consulted and no additional testing required inpatient to minimize the risk of exposure to staff Diarrhea possible related to COVID 19 Continue IVF Monitor electrolytes resolved New LBBB EKG showed no ST changes cardiology on board Follow up with cardiology outpatient Hypertension BP elevated Low Mg Mg 1.7 on admission Mg 2.1 today DVT px on Lovenox Code status full code Admission and Anticipated Discharge Date Admission Date: November 19, 2020 Subjective Pt was seen and examined for follow up of COVID 19 Lying in be with no distress He said said that his breathing and his energy are good He said that he is getting very anxious He has been saturated well on RA Denies any chest pain, palpitation, dizziness and SOB Review of Systems Review of Systems: All systems reviewed & are unremarkable except as noted in Subjective Physical Exam Physical Exam: General- No acute distress Head- atraumatic Eyes- PERRL, EOMI, ENT- oropharynx clear Neck- supple, no JVD Lungs- clear to auscultation Heart- regular rhythm; no murmur Abdomen- normal bowel sounds, soft, nontender Extremities- no calf tenderness Neuro- alert, oriented x 3; PERRL, EOMI; no facial palsy; no dysarthria Skin- warm & dry Results & Data Results & Data ([facility]) Vital Signs (Past 12 Hours) Vital Signs Temp Pulse Pulse Resp BP BP Pulse Ox 11/20/20 11:46 36.7 C 65 18 146/90 H 94 11/20/20 08:04 36.4 C L 67 16 158/94 H 93
--- NOTE | 2020-11-26 01:38 | Discharge Summary ---
Date of Service November 20, 2020 Admission HPI Per Admitting Provider History obtained from patient and records. Medical history significant for hyperlipidemia, GERD. Last week, patient self quarantined after possible COVID-19 exposure to a family member. A day later, patient noted sinus congestion symptoms followed by dry cough occasionally productive of clear sputum. Associated watery diarrhea with mild abdominal cramping. Patient subsequently noted chest heaviness and shortness of breath. Patient drove himself to the ER early this morning. 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 Admission Exam Per Admitting Provider GENERAL: Slightly uncomfortable, pleasant, obese, no respiratory distress SKIN: Normal color, warm HEENT: Alopecia, bespectacled, pink palpebral conjunctivae, no ptosis, dry buc emanuel mucosa NECK : Supple, short neck, no tenderness CHEST : Decreased breath sounds, no tenderness HEART : RRR, no obvious murmurs ABDOMEN: Some distention, nontender EXTREMITIES : Minimal LE swelling, no LE tenderness, no other conspicuous deformities noted NEUROLOGIC : Coherent, no facial asymmetry, no other gross focality Principal Diagnosis COVID-19 Chest pain Diarrhea New Left Bundle Branch Block Hypertension BP elevated Hypomagnesemia Discharge Exam General- No acute distress Head- atraumatic Eyes- PERRL, EOMI, ENT- oropharynx clear Neck- supple, no JVD Lungs- clear to auscultation Heart- regular rhythm; no murmur Abdomen- normal bowel sounds, soft, nontender Extremities- no calf tenderness Neuro- alert, oriented x 3; PERRL, EOMI; no facial palsy; no dysarthria Skin- warm & dry Discharge Data Allergies Allergy/AdvReac Type Severity Reaction Status Date / Time No Known Allergies Allergy Verified 11/19/20 02:06 Consultations 11/19/20 04:44 ED Decision to Admit Stat 11/20/20 07:00 Consult Cardiology Routine Ordered Studies 11/19/20 04:21 CT angio chest PE protocol Urgent CT ANGIOGRAPHY OF THE CHEST, PULMONARY EMBOLUS PROTOCOL CLINICAL HISTORY: Shortness of breath. Covid. COMPARISON STUDY: Chest CT May 04, 2013. Chest radiograph November 19, 2020. TECHNIQUE: Following IV administration of 92 mL of Optiray-320, helical axial images of the chest were obtained utilizing the pulmonary embolus protocol. Maximal intensity projections and sagittal and coronal reformats were viewed on an independent 3D workstation. IV contrast was administered without complication. Automated exposure control was utilized for the study. A dose lowering technique was utilized adhering to the principles of ALARA. CT DOSE: 1546.66 mGy.cm FINDINGS: No pulmonary emboli are identified. There is no thoracic aortic dissection. Small hiatal hernia is present. No enlarged thoracic lymph nodes are noted. No pneumothorax or pleural effusion is noted. Note is made of a prominent multifocal groundglass opacities and foci of consolidation. There is no cavitation. Bony thorax is unremarkable. Mild splenomegaly is noted. A few hepatic cysts are noted. These were shown on prior chest CT. IMPRESSION: 1. No pulmonary emboli identified. 2. Multifocal consolidation and groundglass opacities within the lungs consistent with a viral pneumonia. 3. Mild splenomegaly. ACT 112: Negative or not required by law. Electronically signed by: Madan Flores M.D. 11/19/2020 6:46 AM Dictated: 11/19/20638Transcribed: 11/19/20 0639 XR chest 1V portable HISTORY: Atypical Chest Pain COMPARISON: 01/22/2017. FINDINGS: No pneumothorax. No pleural effusions. The heart remains mildly enlarged. There are low lung volumes. There are hazy airspace opacities within the bilateral mid to lower lung zones. This likely represents a viral pneumonia. IMPRESSION: Hazy airspace opacities within the mid to lower lung zones likely representing a viral pneumonia. ACT 112: Negative or not required by law. Electronically signed by: Curly Okeefe M.D. 11/19/2020 7:47 AM Hospital Course (1) COVID-19: Present on admission with cough, low energy and chest pain COVID 19 positive CTA chest showed no pulmonary emboli identified. Multifocal consolidation and groundglass opacities within the lungs consistent with a viral pneumonia. Pt symptoms has been going for a week and feels like that he is at the end of his symptoms since he was getting better Dexamethasone was starting in the ER , then continue Not a candidate for plasma convalescent since symptoms improves and saturated 94% and above currently No remdesivir since symptoms improved ESR 18, ferritin 412, CRP 1.2, LDH and procalcitonin normal Continue to hold abx Chest pain Atypical in presentation possible related to cough, pleuritic chest pain Currently denies any chest pain Troponin wnl cardiology consulted and no additional testing required inpatient to minimize the risk of exposure to staff Diarrhea possible related to COVID 19 Continue IVF Monitor electrolytes resolved New LBBB EKG showed no ST changes cardiology on board Follow up with cardiology outpatient Hypertension BP elevated Low Mg Mg 1.7 on admission Mg 2.1 today DVT px on Lovenox Code status full code Total Time Total Time Spent Total Time Spent (In Minutes): 35 minutes Total Time Includes: Examination of the Patient, Discharge Planning, Medication Reconciliation, Communication With Other Providers and Other Discharge Plan Discharge Items Patient Disposition: Home - Self-Care Reason For Visit: ELEVATED BP, COVID PNX Discharge Diagnosis: COVID-19 Chest pain Diarrhea New Left Bundle Branch Block Hypertension BP elevated Hypomagnesemia Condition on Discharge: Good Activity: Resume your previous activity Non-emergency contact: Primary Care Provider Call non-emergency contact if: you have any medication questions Follow-up/Referrals: Shruthi Bradley PA-C [Primary Care Provider] - 11/26/20 12:00 pm (Date & Time 11/26/2020 12:00 PM Provider Ac Ball DO Department Family Practice [facility] PLEASE NOTE THAT THIS IS A TELEPHONE APPOINTMENT. YOUR PHYSICIAN WILL CALL YOU AT THE APPOINTMENT TIME. IF YOU HAVE ANY QUESTIONS REGARDING THIS APPOINTMENT, PLEASE CALL ) Diet: Heart Healthy Addtl Attending Provider Instructions: Follow up with your primary care provider Dr. Ac Ball on 11/26/20 @ 12PM (PLEASE NOTE THAT THIS IS A TELEPHONE APPOINTMENT) Follow up with cardiology (your physician will refer you ) Continue monitor your blood pressure and bring your blood pressure log at your next appointment Continue to wear your mask Continue home isolation for 10 days Home Isolation Check BMP in 1 -2 weeks to monitor your electrolytes and kidney function since starting on Losartan COVID-19 Instructions The following information about Home Isolation is from the CDC Website: https://www.cdc.gov/coronavirus/2019-ncov/hcp/qtbrljbn-ipvrycz-snxpta.html Stay home except to get medical care People who are mildly ill with COVID-19 are able to isolate at home during their illness. You should restrict activities outside your home, except for getting medical care. Do not go to work, school, or public areas. Avoid using public transportation, ride-sharing, or taxis. Separate yourself from other people and animals in your home People: As much as possible, you should stay in a specific room and away from other people in your home. Also, you should use a separate bathroom, if available. Animals: You should restrict contact with pets and other animals while you are sick with COVID-19, just like you would around other people. Although there have not been reports of pets or other animals becoming sick with COVID-19, it is still recommended that people sick with COVID-19 limit contact with animals until more information is known about the virus. When possible, have another member of your household care for your animals while you are sick. If you are sick with COVID-19, avoid contact with your pet, including petting, snuggling, being kissed or licked, and sharing food. If you must care for your pet or be around animals while you are sick, wash your hands before and after you interact with pets and wear a face mask. Call ahead before visiting your doctor If you have a medical appointment, call the healthcare provider and tell them that you have or may have COVID-19. This will help the healthcare providers office take steps to keep other people from getting infected or exposed. Wear a face mask You should wear a face mask when you are around other people (e.g., sharing a room or vehicle) or pets and before you enter a healthcare providers office. If you are not able to wear a face mask (for example, because it causes trouble breathing), then people who live with you should not stay in the same room with you, or they should wear a face mask if they enter your room. Cover your coughs and sneezes Cover your mouth and nose with a tissue when you cough or sneeze. Throw used tissues in a lined trash can. Immediately wash your hands with soap and water for at least 20 seconds or, if soap and water are not available, clean your hands with an alcohol-based hand client support representative that contains at least 60% alcohol. Clean your hands often Wash your hands often with soap and water for at least 20 seconds, especially after blowing your nose, coughing, or sneezing; going to the bathroom; and before eating or preparing food. If soap and water are not readily available, use an alcohol-based hand client support representative with at least 60% alcohol, covering all surfaces of your hands and rubbing them together until they feel dry. Soap and water are the best option if hands are visibly dirty. Avoid touching your eyes, nose, and mouth with unwashed hands. Avoid sharing personal household items You should not share dishes, drinking glasses, cups, eating utensils, towels, or bedding with other people or pets in your home. After using these items, they should be washed thoroughly with soap and water. Clean all high-touch surfaces everyday High touch surfaces include counters, tabletops, doorknobs, bathroom fixtures, toilets, phones, keyboards, tablets, and bedside tables. Also, clean any surfaces that may have blood, stool, or body fluids on them. Use a household cleaning spray or wipe, according to the label instructions. Labels contain instructions for safe and effective use of the cleaning product including precautions you should take when applying the product, such as wearing gloves and making sure you have good ventilation during use of the product. Monitor your symptoms Seek prompt medical attention if your illness is worsening (e.g., difficulty breathing).Beforeseeking care, call your healthcare provider and tell them that you have, or are being evaluated for, COVID-19. Put on a face mask before you enter the facility. These steps will help the healthcare providers office to keep other people in the office or waiting room from getting infected or exposed. Ask your healthcare provider to call the local or state health department. Persons who are placed under active monitoring or facilitated self- monitoring should follow instructions provided by their local health department or occupational health professionals, as appropriate. When working with your local health department check their available hours. If you have a medical emergency and need to call 911, notify the dispatch personnel that you have, or are being evaluated for COVID-19. If possible, put on a face mask before emergency medical services arrive. Discontinuing home isolation Patients with confirmed COVID-19 should remain under home isolation precautions until the risk of secondary transmission to others is thought to be low. The decision to discontinue home isolation precautions should be made on a qkxk-ko-aoyo basis, in consultation with healthcare providers and state and local health departments. Coronavirus disease 2019 (COVID-19) is a virus that causes a respiratory illness. It is caused by a coronavirus called 2019 novel coronavirus (2019- nCoV). There are many types of coronavirus. Coronaviruses are a very common cause of bronchitis. They may sometimes cause lung infection(pneumonia). Symptoms can range from mild to severe respiratory illness. These viruses are also foundin some animals. COVID-19 was first found in people in [facility], in late 2019. In 2020, several cases of COVID-19 have been confirmed in the [place] Public health officials are working to find the source. How the virus spreads is not yet fully known. It may be spread through droplets of fluid that a person coughs or sneezes into the air. It may be spread if you touch a surface with virus on it, such as a handle or object, and then touch your mouth. What are the symptoms of COVID-19? Some people have no symptoms or mild symptoms. Symptoms may appear 2 to 14 days after contact with the virus. Symptoms can include: Fever Coughing Trouble breathing What are possible complications from COVID-19? In many cases, this virus can cause infection (pneumonia) in both lungs. In some cases, this can cause . How is COVID-19 diagnosed? Your healthcare provider will ask about your symptoms. He or she will also ask about your recent travel and contact with sick people. Testing for the virus is only done through the CDC. If yourhealthcare provider thinks you may have COVID- 19, he or she will work with your local health department and the CDC on testing. Follow all instructions from your healthcare provider. COVID-19 is diagnosed by: Nasal and throat swab. A cotton-tipped swab is wiped inside your nose or throat. This is done to check for viruses in your nasal mucus. Sputum culture. A small sample of mucus coughed from your lungs (sputum) is collected if you have a cough. It is checked for the virus. How is COVID-19 treated? There is currently no medicine to treat the virus. Treatment is done to help your body while it fights the virus. This is known as supportive care. Supportive care may include: Pain medicine. These include acetaminophen and ibuprofen. They are used to help ease pain and reduce fever. Bed rest. This helps your body fight the illness. For severe illness, you may need to stay in the hospital. Care during severe illness may include: IV (intravenous) fluids.These are given through a vein to help keep your body hydrated. Oxygen. Supplemental oxygen or ventilation with a breathing machine (ventilator) may be given. This is done to keep enough oxygen in your body. Are you at risk for COVID-19? If youve been to a place where people have been sick with this virus, you are at risk for infection. You are at risk if you: Recently traveled to an affected area Had contact with a sick person who recently traveled to this area Had contact with a person who was diagnosed with COVID-19 How can COVID-19 be prevented? There is no vaccine yet. The best prevention is to not have contact with the virus. The CDC advises that people should not travel to areas where there are COVID-19 outbreaks right now for any reason that is not urgent. To help prevent spreading the infection, wash your hands often, or use an alcohol-basedhand client support representative. If you are in an area with COVID-19: Wash your hands often. Or use an alcohol-based hand client support representative often. Only touch your eyes, nose, or mouth with clean hands. Dont have contact with people who are sick. Follow local instructions about being in public. For example, you may be told to not use public transport for a period of time. Stay away from markets that have live or animals. Wash your hands after touching any animals. Don't touch animals that may be sick. Dont share eating or drinking tools with sick people. Dont kiss someone who is sick. Clean surfaces often with disinfectant. If you were in an area with COVID-19 in the last 14 days: Call your healthcare provider. He or she can talk with local health staff to see what action may be needed. Follow all instructions from your provider. Take your temperature every morning and evening for at least 14 days. This is to check for fever. Keep a record of the readings. Keep watch for symptoms of the virus. Tell your provider right away if you have symptoms. If you were in an area with COVID-19 and have a fever or other symptoms: Dont panic. Keep in mind that other illnesses can cause similar symptoms. Stay away from work, school, and public places. Limit physical contact with family members. Don't kiss anyone or share eating or drinking utensils. Clean surfaces you touch with disinfectant. This is to help prevent the virus from spreading. Call your healthcare provider. Explain that you have been exposed to COVID-19 and have symptoms. Do this before going to any hospital. Wait for instructions. Keep in mind that healthcare staff may wear protective equipment such as masks, gowns, gloves, and eye protection. You may be put in a separate room. This is to prevent the possible virus from spreading. Tell the healthcare staff about recent travel. This includes local travel on public transport. Staff may need to find other people you have been in contact with. Follow all instructions the healthcare staff give you. If you have been diagnosed with COVID-19 Follow all instructions from your healthcare provider. Dont leave your home, except to get medical care. Call your healthcare providers office before going. They can prepare and give you instructions. This will help prevent the virus from spreading. Dont go to work, school, or public areas. Dont use public transport or taxis. Stay away from other people in your home. Have them wear face masks around you. Dont share household items or food. Wear a face mask if you can. This includes at home or in a medical facility. Cover your face with a tissue when you cough or sneeze. Throw the tissue away. Wash your hands. Wash your hands often. Caregivers should: Follow all instructions from healthcare staff. Wear a face mask and protective clothing as advised. Wash hands often. Keep track of the sick persons symptoms. Clean surfaces, fabrics, and laundry thoroughly. Keep other people away from the sick person. When to call your healthcare provider Call your healthcare provider: If youve recently traveled and have symptoms If you have been diagnosed with COVID-19 and your symptoms are worse To learn more To find out more about COVID-19, visit the CDC website at www.cdc.gov/coronavirus/2019-ncov/index.html. 7172-1445 [employer]. [address] [place] [address], [place] [address]. All rights reserved. This information is not intended as a substitute for professional medical care. Brandie villarreal follow your healthcare professional's instructions. This information has been adapted from [employer] Pending Studies at Discharge: No Stand-Alone Forms: My [facility] [employer], Smoking Cessation Medications and DC Order Prescriptions: New aspirin 81 mg Tablet,Delayed Release (Dr/Ec) 81 mg PO QAM 30 Days Qty: 30 RF: 0 losartan 25 mg Tablet 25 mg PO QAM 30 Days Qty: 30 RF: 0 sodium chloride [Saline Mist] 0.65 % Aerosol,[place] 2 spray NA Q2H PRN (Reason: nasal congestion) Qty: 1 RF: 0 guaifenesin [Mucinex] 600 mg Tablet Extended Release 12hr 600 mg PO Q12 Qty: 20 RF: 0 Continued cyclobenzaprine 10 mg tablet 10 mg PO BID PRN (Reason: Muscle Spasm) RF: 0 ezetimibe 10 mg tablet 10 mg PO DAILY RF: 0 Discharge Orders: Discharge Order (Routine); Ordered 11/20/20 Ordered By: Ladarius Dickens Admission Data Admit Date/Time: 11/19/20 06:15 Attending Provider: Ladarius Dickens Admit Provider: Christopher Marie Primary Care Provider: Shruthi Bradley Other Providers: Christopher Marie ; Louie Hugo Other Interventions: Discharge Summary Assessment (RN) Last Done: 11/20/20 17:39
== END 2020-11-20 18:35 | disposition home or self-care (01) | DRG 177 ==
LOC: ED 01:57 → 2S 06:15

== ENCOUNTER 2023-04-13 08:40 | Inpatient (IN) ==
--- NOTE | 2023-04-13 08:56 | Emergency Department Note ---
Impression & Plan Neutropenia DC ED Provider Note HPI: The patient is a 62-year-old gentleman who presents emergency department with a chief complaint of subjective fever and chills has been ongoing now for several weeks. Patient states that he is having episodes where he feels extremely warm and is getting sweats, at times that he gets the chills. Patient denies any cough, denies any chest pain, he does state at times he is feeling short of breath. Patient denies any recent rash or known exposure to ticks. On arrival here to the ED the patient is noted to be hemodynamically stable, he is afebrile at 36.0, he is saturating well on room air. He denies any focal complaint of pain on my assessment. ROS: - Per HPI Differential Diagnosis: Lyme disease, anaplasmosis, COVID-19, influenza A, acute bacterial pneumonia, urinary tract infection, leukemia, amongst other p otential pathologies. *Outpatient medications and allergy history reviewed. *Pertinent external medical records reviewed. PE: General: Alert HEENT: Normocephalic, trachea midline Eyes: Extraocular eye movement is intact, no scleral erythema Pulmonary: Clear to auscultation bilaterally, no wheezing Cardio: Regular rate and rhythm GI: Abdomen is soft to palpation : No suprapubic tenderness MSK: No evidence of trauma or malformation of the extremities, no edema Skin: No evidence of rash Neuro: Alert, no focal deficits Psychiatric: Cooperative patient monitor: (As interpreted by myself): - An order was placed for continuous cardiac monitoring - Patient was noted to be in sinus rhythm with a rate of 80 EKG: (As interpreted by myself): Rate: 86 Rhythm: Normal sinus rhythm Intervals: QRS 138 ms (history of left bundle branch block), otherwise within normal limits ST changes: No ST elevation Time: 0847 Interventions provided in ED: -IV fluid bolus, IV vancomycin, IV cefepime Medical Decision Making: Shortly after the patient arrived IV was established lab work obtained, patient was maintained on playground monitor. CBC shows leukopenia with white blood cell count 2.4, platelet count slightly reduced at 128, there is total absolute neutrophil count of 0.05, CMP shows no critical electrolyte abnormalities, total bilirubin slightly elevated at 1.6. Troponin is negative. EKG does not show any ischemic changes. Patient denies any chest pain. Procalcitonin is noted to be low. Lyme testing and Anaplasma testing are both initially negative. Viral panel testing is also negative. Unclear source of the patient's fever/chills, urinalysis is pending at the time of admission however patient denies any dysuria. I did discuss the patient's CBC findings with on-call hematology, Dr. Garner, who recommends obtaining peripheral blood smear as well as vitamin B12 levels and folate levels given the patient's low MCV. Iron levels will also be sent. Patient will be covered with broad-spectrum antibiotics following her discussion with vancomycin and cefepime given fever by history with neutropenia. I discussed all the above findings with the patient, he is in agreement for admission. [facility] hospitalist service was consulted for admission following my discussion with the on-call midlevel provider and the patient was placed for admission in stable condition for further care. Consultants: - [facility] hospitalist service, Dr. Linder -Hematology, Dr. Garner Disposition discussion held by myself with: Patient Diagnosis: 1. Neutropenia, acute 2. Leukopenia, acute 3. Fever by history 4. Thrombocytopenia, acute, mild Disposition: Admission Luis Enrique Meza DO Emergency Medicine Past Med/Surg History Medical History (Updated 04/13/23 @ 14:16 by Luis Enrique Meza DO) Acute sinusitis Anxiety Bronchitis Cervical strain Chest pain Complete left bundle branch block (LBBB) determined by ECG COVID-19 Fall GERD (gastroesophageal reflux disease) HLD (hyperlipidemia) Hypertension Hypokalemia Pain of left sternoclavicular joint Pleuritic chest pain Pneumonia due to COVID-19 virus Radicular pain of left upper extremity Tendinitis of right shoulder Tendinitis of right shoulder Vertigo Work related injury Surgical History No pertinent past surgical history Family History Brother Cancer Prostate Social History Smoking Status: Current some day smoker Tobacco Type: Cigars Second Hand Exposure: No; Do You Dip or Chew Tobacco: No; Hx Alcohol Use: No Hx Substance Use: No Preferred Language: Surinamese Communication Ability: Effective Choke Reamer Required: No Beliefs That Will Affect Care: None marital status: Current Living Situation: Spouse current occupational status: employed 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 Feels Safe at Home: Yes Assistive Devices: None Allergies Allergies Allergy/AdvReac Type Severity Reaction Status Date / Time No Known Allergies Allergy Verified 12/29/22 01:21 Home Meds Home Medications Medication Instructions Recorded Confirmed losartan 25 mg tablet 25 mg PO DAILY 05/08/22 04/13/23 rosuvastatin 10 mg tablet 10 mg PO DAILY 05/08/22 04/13/23 famotidine 20 mg tablet 20 mg PO BID 12/29/22 04/13/23 fluticasone propionate 50 1 spray intranasal UD 12/29/22 04/13/23 mcg/actuation nasal spray,suspension meloxicam 7.5 mg tablet 7.5 mg PO DAILY PRN Pain 04/13/23 04/13/23 semaglutide 2 mg/dose (8 mg/3 mL) 2 mg subcut DIRECTED 04/13/23 04/13/23 subcutaneous pen injector (Ozempic) Results & Data (ED) Vital Signs Vital Signs - 24 hr 04/13/23 08:42 04/13/23 08:56 04/13/23 09:03 Temperature 36.0 C L Temperature Source Temporal Artery Scan Pulse Rate 88 83 81 Pulse Rate [Apical] Respiratory Rate 20 18 Respiratory Effort / Characteristics Non-Labored Respiratory Depth Normal Blood Pressure 129/66 Blood Pressure [Left Arm] Blood Pressure Mean 87 Blood Pressure Mean [Left Arm] Pulse Oximetry 97 95 Oxygen Delivery Method Room Air Sepsis Recent Fever Within 48 Hours No Sepsis New/Unexplained Change in Mental Status N/A Sepsis Action Taken by Nursing No Action Required 04/13/23 09:03 04/13/23 09:17 04/13/23 08:55 Temperature Temperature Source Pulse Rate 82 Pulse Rate [Apical] 83 Respiratory Rate 18 17 Respiratory Effort / Characteristics Respiratory Depth Blood Pressure 134/96 Blood Pressure [Left Arm] 134/91 Blood Pressure Mean 108 Blood Pressure Mean [Left Arm] 105 Pulse Oximetry 95 95 96 Oxygen Delivery Method Room Air Room Air Sepsis Recent Fever Within 48 Hours Sepsis New/Unexplained Change in Mental Status Sepsis Action Taken by Nursing 04/13/23 09:00 04/13/23 09:30 04/13/23 10:00 Temperature Temperature Source Pulse Rate 90 81 77 Pulse Rate [Apical] Respiratory Rate 16 18 14 Respiratory Effort / Characteristics Respiratory Depth Blood Pressure 134/91 131/80 123/75 Blood Pressure [Left Arm] Blood Pressure Mean 105 97 91 Blood Pressure Mean [Left Arm] Pulse Oximetry 96 95 96 Oxygen Delivery Method Room Air Room Air Room Air Sepsis Recent Fever Within 48 Hours Sepsis New/Unexplained Change in Mental Status Sepsis Action Taken by Nursing Laboratory Data 04/13/23 08:50 04/13/23 08:50 Lab Results 04/13/23 04/13/23 04/13/23 Range/Units 08:50 08:50 08:50 WBC 2.42 L (4.8-10.8) K/ul RBC 5.34 (4.70-6.10) M/uL Hgb 14.4 (14.0-18.0) g/dl Hct 41.5 L (42.0-52.0) % MCV 77.7 L (80.0-100.0) fL MCH 27.0 (25.0-34.0) pg MCHC 34.7 (32.0-36.0) g/dL RDW Std Deviation 38.4 (36.4-46.3) fL RDW Coeff of Cornelius 13.7 (11.5-14.5) % Plt Count 128 L (130-400) K/uL MPV 10.6 (9.4-12.4) fL Neutrophils % (Manual) 2 % Lymphocytes % (Manual) 32 % Monocytes % (Manual) 33 % Basophils % (Manual) 1 % Neutrophils # (Manual) 0.05 L (1.40-6.50) K/uL Total Absolute Neuts 0.05 L* (1.4-6.5) K/uL Lymphocytes # (Manual) 0.77 L (1.2-3.4) K/uL Total Abs Lymphocytes 1.57 (1.2-3.4) K/uL Monocytes # (Manual) 0.80 H (0.11-0.59) K/uL Basophils # (Manual) 0.02 (0-0.2) K/uL Large Granular Lymphs 33 % # Lrg Granular Lymphs 0.80 K/uL Ovalocytes 1+ Peripher Smr Path Cons ESR (0-20) mm/hr PT (9.0-12.0) Seconds INR (0.9-1.1) Sodium 136 (136-145) mmol/L Potassium 4.1 (3.5-5.1) mmol/L Chloride 105 (98-107) mmol/L Carbon Dioxide 25 (21-32) mmol/L Anion Gap 6 (3-11) BUN 14 (6-23) mg/dl Creatinine 0.89 (0.6-1.4) mg/dl Est Cr Clr Drug Dosing 105.7 ml/min Est GFR ( Amer) 105.5 ml/min Est GFR (Non-Af Amer) 91.0 ml/min BUN/Creatinine Ratio 15.7 (10-20) Glucose 107 H (70-99(Fasting)) mg/dl Lactate 0.7 (0.4-2.0) mmol/L Calcium 9.6 (8.6-10.3) mg/dl Magnesium 1.9 (1.7-2.4) mg/dl Iron (35-175) mcg/dl Unsaturated IBC (155-355) mcg/dl Transferrin (200-360) mg/dl Ferritin (8-388) ng/ml Total Bilirubin 1.6 H (0.2-1.0) mg/dl Direct Bilirubin 0.3 H (0-0.2) mg/dl AST 17 (13-39) U/L ALT 21 (7-52) U/L Alkaline Phosphatase 76 (34-104) U/L Troponin I High Sens 3.9 (0-20) pg/ml Total Protein 7.4 (6.0-8.3) gm/dl Albumin 4.2 (3.4-5.0) gm/dl Vitamin B12 (180-914) pg/ml Folate (>5.38) ng/ml Procalcitonin (0-0.5) ng/ml TSH (0.300-4.500) uIu/ml Adenovirus (PCR) (NotDetected) Anaplasma Smear See Comment Babesia Smear See Comment B. pertussis DNA (PCR) (NotDetected) B.parapertussis DNA PCR (NotDetected) Lyme Disease IgG Ab (Negative) Lyme Disease IgM Ab (Negative) C. pneumoniae DNA (PCR) (NotDetected) Coronavirus OC43 (PCR) (NotDetected) Coronavirus HKU1 (PCR) (NotDetected) Coronavirus 229E (PCR) (NotDetected) SARS-CoV-2 (PCR) (NotDetected) Coronavirus NL63 (PCR) (NotDetected) Human Metapneumovir PCR (NotDetected) Influenza Type A (PCR) (NotDetected) Influenza Type B (PCR) (NotDetected) M. pneumoniae (PCR) (NotDetected) Parainfluenza 1 (PCR) (NotDetected) Parainfluenza 2 (PCR) (NotDetected) Parainfluenza 3 (PCR) (NotDetected) Parainfluenza 4 (PCR) (NotDetected) RSV (PCR) (NotDetected) Entero/Rhino (PCR) (NotDetected) 04/13/23 04/13/23 04/13/23 Range/Units 08:50 08:50 08:50 WBC (4.8-10.8) K/ul RBC (4.70-6.10) M/uL Hgb (14.0-18.0) g/dl Hct (42.0-52.0) % MCV (80.0-100.0) fL MCH (25.0-34.0) pg MCHC (32.0-36.0) g/dL RDW Std Deviation (36.4-46.3) fL RDW Coeff of Cornelius (11.5-14.5) % Plt Count (130-400) K/uL MPV (9.4-12.4) fL Neutrophils % (Manual) % Lymphocytes % (Manual) % Monocytes % (Manual) % Basophils % (Manual) % Neutrophils # (Manual) (1.40-6.50) K/uL Total Absolute Neuts (1.4-6.5) K/uL Lymphocytes # (Manual) (1.2-3.4) K/uL Total Abs Lymphocytes (1.2-3.4) K/uL Monocytes # (Manual) (0.11-0.59) K/uL Basophils # (Manual) (0-0.2) K/uL Large Granular Lymphs % # Lrg Granular Lymphs K/uL Ovalocytes Peripher Smr Path Cons ESR (0-20) mm/hr PT (9.0-12.0) Seconds INR (0.9-1.1) Sodium (136-145) mmol/L Potassium (3.5-5.1) mmol/L Chloride (98-107) mmol/L Carbon Dioxide (21-32) mmol/L Anion Gap (3-11) BUN (6-23) mg/dl Creatinine (0.6-1.4) mg/dl Est Cr Clr Drug Dosing ml/min Est GFR ( Amer) ml/min Est GFR (Non-Af Amer) ml/min BUN/Creatinine Ratio (10-20) Glucose (70-99(Fasting)) mg/dl Lactate (0.4-2.0) mmol/L Calcium (8.6-10.3) mg/dl Magnesium (1.7-2.4) mg/dl Iron (35-175) mcg/dl Unsaturated IBC (155-355) mcg/dl Transferrin (200-360) mg/dl Ferritin (8-388) ng/ml Total Bilirubin (0.2-1.0) mg/dl Direct Bilirubin (0-0.2) mg/dl AST (13-39) U/L ALT (7-52) U/L Alkaline Phosphatase (34-104) U/L Troponin I High Sens (0-20) pg/ml Total Protein (6.0-8.3) gm/dl Albumin (3.4-5.0) gm/dl Vitamin B12 601 (180-914) pg/ml Folate 15.13 (>5.38) ng/ml Procalcitonin < 0.05 (0-0.5) ng/ml TSH (0.300-4.500) uIu/ml Adenovirus (PCR) Not Detected (NotDetected) Anaplasma Smear Babesia Smear B. pertussis DNA (PCR) Not Detected (NotDetected) B.parapertussis DNA PCR Not Detected (NotDetected) Lyme Disease IgG Ab Negative (Negative) Lyme Disease IgM Ab Negative (Negative) C. pneumoniae DNA (PCR) Not Detected (NotDetected) Coronavirus OC43 (PCR) Not Detected (NotDetected) Coronavirus HKU1 (PCR) Not Detected (NotDetected) Coronavirus 229E (PCR) Not Detected (NotDetected) SARS-CoV-2 (PCR) Not Detected (NotDetected) Coronavirus NL63 (PCR) Not Detected (NotDetected) Human Metapneumovir PCR Not Detected (NotDetected) Influenza Type A (PCR) Not Detected (NotDetected) Influenza Type B (PCR) Not Detected (NotDetected) M. pneumoniae (PCR) Not Detected (NotDetected) Parainfluenza 1 (PCR) Not Detected (NotDetected) Parainfluenza 2 (PCR) Not Detected (NotDetected) Parainfluenza 3 (PCR) Not Detected (NotDetected) Parainfluenza 4 (PCR) Not Detected (NotDetected) RSV (PCR) Not Detected (NotDetected) Entero/Rhino (PCR) Not Detected (NotDetected) 04/13/23 04/13/23 04/13/23 Range/Units 08:50 08:50 08:50 WBC (4.8-10.8) K/ul RBC (4.70-6.10) M/uL Hgb (14.0-18.0) g/dl Hct (42.0-52.0) % MCV (80.0-100.0) fL MCH (25.0-34.0) pg MCHC (32.0-36.0) g/dL RDW Std Deviation (36.4-46.3) fL RDW Coeff of Cornelius (11.5-14.5) % Plt Count (130-400) K/uL MPV (9.4-12.4) fL Neutrophils % (Manual) % Lymphocytes % (Manual) % Monocytes % (Manual) % Basophils % (Manual) % Neutrophils # (Manual) (1.40-6.50) K/uL Total Absolute Neuts (1.4-6.5) K/uL Lymphocytes # (Manual) (1.2-3.4) K/uL Total Abs Lymphocytes (1.2-3.4) K/uL Monocytes # (Manual) (0.11-0.59) K/uL Basophils # (Manual) (0-0.2) K/uL Large Granular Lymphs % # Lrg Granular Lymphs K/uL Ovalocytes Peripher Smr Path Cons ESR (0-20) mm/hr PT (9.0-12.0) Seconds INR (0.9-1.1) Sodium (136-145) mmol/L Potassium (3.5-5.1) mmol/L Chloride (98-107) mmol/L Carbon Dioxide (21-32) mmol/L Anion Gap (3-11) BUN (6-23) mg/dl Creatinine (0.6-1.4) mg/dl Est Cr Clr Drug Dosing ml/min Est GFR ( Amer) ml/min Est GFR (Non-Af Amer) ml/min BUN/Creatinine Ratio (10-20) Glucose (70-99(Fasting)) mg/dl Lactate (0.4-2.0) mmol/L Calcium (8.6-10.3) mg/dl Magnesium (1.7-2.4) mg/dl Iron 27 L (35-175) mcg/dl Unsaturated IBC 272 (155-355) mcg/dl Transferrin 225 (200-360) mg/dl Ferritin 158.3 (8-388) ng/ml Total Bilirubin (0.2-1.0) mg/dl Direct Bilirubin (0-0.2) mg/dl AST (13-39) U/L ALT (7-52) U/L Alkaline Phosphatase (34-104) U/L Troponin I High Sens (0-20) pg/ml Total Protein (6.0-8.3) gm/dl Albumin (3.4-5.0) gm/dl Vitamin B12 (180-914) pg/ml Folate (>5.38) ng/ml Procalcitonin (0-0.5) ng/ml TSH 0.578 (0.300-4.500) uIu/ml Adenovirus (PCR) (NotDetected) Anaplasma Smear Babesia Smear B. pertussis DNA (PCR) (NotDetected) B.parapertussis DNA PCR (NotDetected) Lyme Disease IgG Ab (Negative) Lyme Disease IgM Ab (Negative) C. pneumoniae DNA (PCR) (NotDetected) Coronavirus OC43 (PCR) (NotDetected) Coronavirus HKU1 (PCR) (NotDetected) Coronavirus 229E (PCR) (NotDetected) SARS-CoV-2 (PCR) (NotDetected) Coronavirus NL63 (PCR) (NotDetected) Human Metapneumovir PCR (NotDetected) Influenza Type A (PCR) (NotDetected) Influenza Type B (PCR) (NotDetected) M. pneumoniae (PCR) (NotDetected) Parainfluenza 1 (PCR) (NotDetected) Parainfluenza 2 (PCR) (NotDetected) Parainfluenza 3 (PCR) (NotDetected) Parainfluenza 4 (PCR) (NotDetected) RSV (PCR) (NotDetected) Entero/Rhino (PCR) (NotDetected) 04/13/23 04/13/23 Range/Units 08:50 10:46 WBC (4.8-10.8) K/ul RBC (4.70-6.10) M/uL Hgb (14.0-18.0) g/dl Hct (42.0-52.0) % MCV (80.0-100.0) fL MCH (25.0-34.0) pg MCHC (32.0-36.0) g/dL RDW Std Deviation (36.4-46.3) fL RDW Coeff of Cornelius (11.5-14.5) % Plt Count (130-400) K/uL MPV (9.4-12.4) fL Neutrophils % (Manual) % Lymphocytes % (Manual) % Monocytes % (Manual) % Basophils % (Manual) % Neutrophils # (Manual) (1.40-6.50) K/uL Total Absolute Neuts (1.4-6.5) K/uL Lymphocytes # (Manual) (1.2-3.4) K/uL Total Abs Lymphocytes (1.2-3.4) K/uL Monocytes # (Manual) (0.11-0.59) K/uL Basophils # (Manual) (0-0.2) K/uL Large Granular Lymphs % # Lrg Granular Lymphs K/uL Ovalocytes Peripher Smr Path Cons ESR 21 H (0-20) mm/hr PT 11.0 (9.0-12.0) Seconds INR 1.0 (0.9-1.1) Sodium (136-145) mmol/L Potassium (3.5-5.1) mmol/L Chloride (98-107) mmol/L Carbon Dioxide (21-32) mmol/L Anion Gap (3-11) BUN (6-23) mg/dl Creatinine (0.6-1.4) mg/dl Est Cr Clr Drug Dosing ml/min Est GFR ( Amer) ml/min Est GFR (Non-Af Amer) ml/min BUN/Creatinine Ratio (10-20) Glucose (70-99(Fasting)) mg/dl Lactate (0.4-2.0) mmol/L Calcium (8.6-10.3) mg/dl Magnesium (1.7-2.4) mg/dl Iron (35-175) mcg/dl Unsaturated IBC (155-355) mcg/dl Transferrin (200-360) mg/dl Ferritin (8-388) ng/ml Total Bilirubin (0.2-1.0) mg/dl Direct Bilirubin (0-0.2) mg/dl AST (13-39) U/L ALT (7-52) U/L Alkaline Phosphatase (34-104) U/L Troponin I High Sens (0-20) pg/ml Total Protein (6.0-8.3) gm/dl Albumin (3.4-5.0) gm/dl Vitamin B12 (180-914) pg/ml Folate (>5.38) ng/ml Procalcitonin (0-0.5) ng/ml TSH (0.300-4.500) uIu/ml Adenovirus (PCR) (NotDetected) Anaplasma Smear Babesia Smear B. pertussis DNA (PCR) (NotDetected) B.parapertussis DNA PCR (NotDetected) Lyme Disease IgG Ab (Negative) Lyme Disease IgM Ab (Negative) C. pneumoniae DNA (PCR) (NotDetected) Coronavirus OC43 (PCR) (NotDetected) Coronavirus HKU1 (PCR) (NotDetected) Coronavirus 229E (PCR) (NotDetected) SARS-CoV-2 (PCR) (NotDetected) Coronavirus NL63 (PCR) (NotDetected) Human Metapneumovir PCR (NotDetected) Influenza Type A (PCR) (NotDetected) Influenza Type B (PCR) (NotDetected) M. pneumoniae (PCR) (NotDetected) Parainfluenza 1 (PCR) (NotDetected) Parainfluenza 2 (PCR) (NotDetected) Parainfluenza 3 (PCR) (NotDetected) Parainfluenza 4 (PCR) (NotDetected) RSV (PCR) (NotDetected) Entero/Rhino (PCR) (NotDetected) Administered Medications Discontinued Medications Sodium Chloride (Nss 1000ml) 1,000 mls @ 999 mls/hr IV .[id number] KENDALL Stop: 04/13/23 10:00 Last Infusion: 04/13/23 10:57 Dose: 0 mls/hr Documented By: Admin: 04/13/23 09:16 Dose: 999 mls/hr Documented By: TANJA Vancomycin HCl 2,250 mg/ (Sodium Chloride) 545 mls @ 200 mls/hr IV NOW ONE Stop: 04/13/23 13:28 Last Admin: 04/13/23 11:11 Dose: 200 mls/hr Documented By: JOSEPH Cefepime HCl (Maxipime) 2,000 mg in 20 mls @ 5 mls/min IV NOW STA; Protocol Stop: 04/13/23 10:48 Last Admin: 04/13/23 11:05 Dose: 5 mls/min Documented By: JOSEPH Imaging Data Radiologist's Impression: Chest X-Ray 04/13/23 08:53 XR chest 1V portable CLINICAL HISTORY: Sepsis TECHNIQUE: Single frontal radiograph of the chest was obtained. Comparison: Comparison is made to chest radiograph 11/19/2020 FINDINGS: No lines and tubes are seen. The cardiomediastinal silhouette is stable. The lungs are clear. No evidence of pleural effusion or pneumothorax. IMPRESSION: No acute abnormalities and in particular no radiographic evidence of pneumonia. ACT 112: Negative or not required by law. Electronically signed by: Juan Stanford M.D. 04/13/2023 9:31 AM Discharge Plan Visit Data Chief Complaint: Shortness of Breath/Dyspnea Stated Complaint: SOB,BACK/SIDE PAIN,FATIGUE,CHEST TIGHT ED Provider: Luis Enrique Meza Discharge Problem: Neutropenia Patient Disposition: Admitted As Inpatient Discharge Instructions Interventions: ED Discharge Assessment Last Done: 04/13/23 12:20
[2023-04-13] MEDS ORDERED: SODIUM CHLORIDE 0.9% 1000ML 1,000 ML IV SCH (09:00)
[2023-04-13 09:33] LABS: Albumin Level 4.2 gm/dl (3.4-5.0); BUN Creatinine Ratio 15.7 (10-20); Bilirubin Direct 0.3 mg/dl (0-0.2); Bilirubin,Total 1.6 mg/dl (0.2-1.0); Calcium 9.6 mg/dl (8.6-10.3); Creatinine Clr Calc Pharmacy 105.7 ml/min; Est GFR (African American) 105.5 ml/min; Magnesium 1.9 mg/dl (1.7-2.4); Potassium 4.1 mmol/L (3.5-5.1); Total Protein 7.4 gm/dl (6.0-8.3)
--- NOTE | 2023-04-13 09:33 | XRay Report ---
XR chest 1V portable CLINICAL HISTORY: Sepsis TECHNIQUE: Single frontal radiograph of the chest was obtained. Comparison: Comparison is made to chest radiograph 11/19/2020 FINDINGS: No lines and tubes are seen. The cardiomediastinal silhouette is stable. The lungs are clear. No evid ence of pleural effusion or pneumothorax. IMPRESSION: No acute abnormalities and in particular no radiographic evidence of pneumonia. ACT 112: Negative or not required by law. Electronically signed by: Juan Stanford M.D. 04/13/2023 9:31 AM
[2023-04-13 09:40] LABS: Troponin I High Sensitivity 3.9 pg/ml (0-20)
[2023-04-13 09:45] LABS: Hematocrit (blood only) 41.5 % (42.0-52.0); Hemoglobin 14.4 g/dl (14.0-18.0); Mean Corpuscular Hgb Conc 34.7 g/dL (32.0-36.0); Mean Corpuscular Volume 77.7 fL (80.0-100.0); Platelet Count 128 K/uL (130-400); RDW Coefficient of Variation 13.7 % (11.5-14.5); RDW Standard Deviation 38.4 fL (36.4-46.3); Red Blood Count 5.34 M/uL (4.70-6.10); White Blood Count 2.42 K/ul (4.8-10.8)
[2023-04-13 09:46] LABS: Mean Platelet Volume 10.6 fL (9.4-12.4)
[2023-04-13 09:54] LABS: Procalcitonin < 0.05 ng/ml (0-0.5)
[2023-04-13 09:59] LABS: Lyme Ab IgG w/WB Rflx Negative (Negative)
[2023-04-13 10:00] LABS: Lyme Ab IgM w/WB Rflx Negative (Negative)
[2023-04-13 10:09] LABS: Adenovirus PCR Not Detected (NotDetected); Bordetella parapertussis PCR Not Detected (NotDetected); Bordetella pertussis PCR Not Detected (NotDetected); Chlamydia pneumoniae PCR Not Detected (NotDetected); Coronavirus 229E PCR Not Detected (NotDetected); Coronavirus CoV-2 (COVID19)PCR Not Detected (NotDetected); Coronavirus HKU1 PCR Not Detected (NotDetected); Coronavirus NL63 PCR Not Detected (NotDetected); Coronavirus OC43PCR Not Detected (NotDetected); Human Metapneumovirus PCR Not Detected (NotDetected); Influenza A PCR Not Detected (NotDetected); Influenza B PCR Not Detected (NotDetected); Mycoplasma pneumoniae PCR Not Detected (NotDetected); Parainfluenza Virus 1 PCR Not Detected (NotDetected); Parainfluenza Virus 2 PCR Not Detected (NotDetected); Parainfluenza Virus 3 PCR Not Detected (NotDetected); Parainfluenza Virus 4 PCR Not Detected (NotDetected); Respiratory Syncytial VirusPCR Not Detected (NotDetected); Rhinovirus/Enterovirus PCR Not Detected (NotDetected)
[2023-04-13 10:12] LABS: ALC (manual) 1.57 K/uL (1.2-3.4); ANC (manual) 0.05 K/uL (1.4-6.5); Basophils # (manual) 0.02 K/uL (0-0.2); Basophils % (manual) 1 %; Large Granular Lymph % (manual) 33 %; Lymphocytes # (manual) 0.77 K/uL (1.2-3.4); Lymphocytes % (manual) 32 %; Monocytes % (manual) 33 %; Neutrophils # (manual) 0.05 K/uL (1.40-6.50); Neutrophils % (manual) 2 %; Ovalocytes 1+
[2023-04-13] MEDS ORDERED: VANCOMYCIN CONSULT ACTIVE PRN (10:45)
[2023-04-13] MEDS ORDERED: VANCOMYCIN HCL 2,250 MG in SODIUM CHLORIDE 0.9% 500 ML IV ONE (10:45)
[2023-04-13] MEDS ORDERED: CEFEPIME 2,000 MG/20 ML VIAL IV STA (10:45)
[2023-04-13 12:04] LABS: Folate (Folic Acid),Ser orPlas 15.13 ng/ml (>5.38)
[2023-04-13 12:25] LABS: Ferritin 158.3 ng/ml (8-388)
--- NOTE | 2023-04-13 12:30 | History & Physical Report ---
Date of Service April 13, 2023 Assessment & Plan (1) Neutropenia: (2) HLD (hyperlipidemia): (3) Hypertension: (4) LBBB (left bundle branch block): Plan This is a 62-year-old male who has significant past medical history of HTN, HLD, LBBB, GERD, history of COVID-19 who presents to ED secondary to worsening fatigue x2 to 3 months. Neutropenia Thrombocytopenia Patient with progression of neutropenia since February Patient reports fatigue that is progressive, chills/feeling hot, occasional night sweats, but no significant weight loss No known recent illness We will rule out infectious source, blood cultures pending Nutritional studies ordered and unremarkable including folate, vitamin B12 and iron panel Serum copper pending Obtain viral panels for hepatitis, EBV, CMV, HIV if pt consents Consult hematology Dr. Garner, will defer to her need for further imaging (CT chest/a/p) or bone marrow bx if infectious source ruled out We will empirically cover with cefepime for now -if patient still hospitalized after 48 hours, antibiotic will need to be continued as only ordered for empiric purposes Hyperlipidemia Continue statin Chronic, stable Hypertension Continue losartan chronic, stable GERD cont Pepcid chronic, stable Weight loss, pt reports being on ozempic for ~ 1 year for attemped weight loss Aortic Sclerosis echo 08/2022 revealed normal EF, LVH, grade 1 diastolic dysfunction and mild aortic valve sclerosis murmur noted on exam consistent with av sclerosis at this time do not feel need to repeat echo DVT ppx: SCDS for now given thrombocytopenia, if hospitalized > [address] remain stable consider chemical ppx FULL CODE PCP: Dr. Bradly Steiner Dispo: admit to [facility] Pt was seen and examined in collaboration with Dr. Linder, please see addendum A total of 80 was spent coordinating, documenting, and providing care for this patient excluding time spent in the performance of separately billed services. This included personally viewing all current laboratories and imaging studies, medication reconciliation, outpatient chart review. History of Present Illness Chief Complaint: Fatigue x 2-3 months. Primary Care Provider: Bradly Steiner, This is a 62-year-old male who has significant past medical history of HTN, HLD, LBBB, GERD, history of COVID-19 who presents to ED secondary to worsening fatigue x2 to 3 months. Patient complains of not feeling well over the last 2 to 3 months and having increasing and progressive fatigue. He states even simple activities cause him to play out. Patient was seen in outpatient setting for similar complaints on 02/23/2023 which revealed the start of a neutropenia and decrease in absolute neutrophil count. It was felt that this may be caused by new medication meloxicam and therefore he was told to hold it. He had repeat blood work done on 03/27/2023 which showed a worsening of neutropenia and thrombocytopenia despite holding medication. He is active outdoors and this past weekend was camping. He states on the weekend typically when the camp they eat a lot of food and he just had no appetite. He reports approximately 4 pound weight loss. He does occasionally get night sweats, but states this is not out of the ordinary for him. He denies any known tick bite, rash, polyarthralgia, recent illness or sick contact. Although meloxicam he denies any new medications. He denies any documented fever but states he always alternates between chills and sweats. He denies any lung disease but states today prior to coming in he fell he had a hard time, "catching his breath." He denies any upper respiratory symptoms or cough. He has felt nauseous lately and otherwise decreased appetite. He denies chest pain, and change in bowel or urinary habits. He denies ever having anything like this in the past. In ED patient was hemodynamically stable and afebrile. Lab work noted a mild decrease in hematocrit of 41.5, neutropenia with a WBC of 2.42 and absolute neutrophil count of 0.05k/uL, decrease lymphoctye 0.77. He has a normal iron panel, vit b12 and folate. His respiratory bio fire was negative. Initial Lyme screen was negative. Anaplasma and Babesia smear were negative for concerning findings but PCR still pending. He received empiric cefepime and Vanco in the ED for his neutropenia despite no fever. He denies elicit drug use, he smokes cigars occasional and only drinks a few wine coolers yearly. 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 Allergies Allergy/AdvReac Type Severity Reaction Status Date / Time No Known Allergies Allergy Verified 12/29/22 01:21 Home Medications Medication Instructions Recorded Confirmed Type losartan 25 mg tablet 25 mg PO DAILY 05/08/22 04/13/23 History rosuvastatin 10 mg tablet 10 mg PO DAILY 05/08/22 04/13/23 History famotidine 20 mg tablet 20 mg PO BID 12/29/22 04/13/23 History fluticasone propionate 50 1 spray intranasal UD 12/29/22 04/13/23 History mcg/actuation nasal spray,suspension meloxicam 7.5 mg tablet 7.5 mg PO DAILY PRN Pain 04/13/23 04/13/23 History semaglutide 2 mg/dose (8 mg/3 mL) 2 mg subcut DIRECTED 04/13/23 04/13/23 History subcutaneous pen injector (Ozempic) Past Med/Surg History Medical History (Updated 04/13/23 @ 16:53 by Samia Garner MD) Acute sinusitis Anxiety Bronchitis Cervical strain Chest pain Complete left bundle branch block (LBBB) determined by ECG COVID-19 Fall GERD (gastroesophageal reflux disease) HLD (hyperlipidemia) Hypertension Hypokalemia Pain of left sternoclavicular joint Pleuritic chest pain Pneumonia due to COVID-19 virus Radicular pain of left upper extremity Tendinitis of right shoulder Tendinitis of right shoulder Vertigo Work related injury Surgical History No pertinent past surgical history Family History Brother Cancer Prostate Social History Smoking Status: Current some day smoker Tobacco Type: Cigars Second Hand Exposure: No; Do You Dip or Chew Tobacco: No; Hx Alcohol Use: No Hx Substance Use: No Preferred Language: Pakistani Communication Ability: Effective Visual Display Manager Required: No Beliefs That Will Affect Care: None marital status: Current Living Situation: Spouse current occupational status: employed 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 Normal insp/exp effort, no accessory muscle use Cardiovascular: RRR, 1/6 HARI RUSB, no edema Vessels: no JVD or carotid bruit Chest: normal inspection of chest Abdomen: normal bowel sounds, soft, nontender, no hepatosplenomegaly Musculoskeletal: no cyanosis or clubbing, extremities motor strength 5/5 Skin: no rashes, warm and dry normal turgor Neurologic: PERRL, EOMI, accommodation nl, no face palsy, no dysarthria CN's II-XI intact bilaterally and moves all extremities Psychiatric: A+Ox3, euthymic affect Lymphatic: no cervical or axillary lymphadenopathy : deferred Results & Data Results & Data Vital Signs (Past 12 Hours) Vital Signs Temp Pulse Pulse Resp BP BP Pulse Ox 04/13/23 10:00 77 14 123/75 96 04/13/23 09:30 81 18 131/80 95 04/13/23 09:00 90 16 134/91 96 04/13/23 08:55 82 17 134/96 96 04/13/23 09:17 95 04/13/23 09:03 83 18 134/91 95 04/13/23 09:03 81 18 95 04/13/23 08:56 83 04/13/23 08:42 36.0 C L 88 20 129/66 97 O2 Del Method 04/13/23 10:00 Room Air 04/13/23 09:30 Room Air 04/13/23 09:00 Room Air 04/13/23 08:55 Room Air 04/13/23 09:17 Room Air 04/13/23 09:03 04/13/23 09:03 04/13/23 08:56 04/13/23 08:42 Room Air Diagnostic Findings Chest X-Ray 04/13/23 08:53 XR chest 1V portable CLINICAL HISTORY: Sepsis TECHNIQUE: Single frontal radiograph of the chest was obtained. Comparison: Comparison is made to chest radiograph 11/19/2020 FINDINGS: No lines and tubes are seen. The cardiomediastinal silhouette is stable. The lungs are clear. No evidence of pleural effusion or pneumothorax. IMPRESSION: No acute abnormalities and in particular no radiographic evidence of pneumonia. ACT 112: Negative or not required by law. Electronically signed by: Juan Stanford M.D. 04/13/2023 9:31 AM Medications Administered Medication List Vancomycin HCl 2,250 mg/ (Sodium Chloride) 545 mls @ 200 mls/hr IV NOW ONE Stop: 04/13/23 13:28 Last Admin: 04/13/23 11:11 Dose: 200 mls/hr Documented By: JOSEPH Discontinued Medications Sodium Chloride (Nss 1000ml) 1,000 mls @ 999 mls/hr IV .Q1H1M KENDALL Stop: 04/13/23 10:00 Last Infusion: 04/13/23 10:57 Dose: 0 mls/hr Documented By: Admin: 04/13/23 09:16 Dose: 999 mls/hr Documented By: TANJA Cefepime HCl (Maxipime) 2,000 mg in 20 mls @ 5 mls/min IV NOW STA; Protocol Stop: 04/13/23 10:48 Last Admin: 04/13/23 11:05 Dose: 5 mls/min Documented By: JOSEPH ECG Rate (beats per minute): 86 Rhythm: normal sinus Additional Comments: LBBB. qtc 466ms COVID-19 Results Results COVID-19 Adm Lab Results: RBC 5.34 M/uL (4.70-6.10) 04/13/23 WBC 2.42 K/ul (4.8-10.8) L 04/13/23 Hgb 14.4 g/dl (14.0-18.0) 04/13/23 Hct 41.5 % (42.0-52.0) L 04/13/23 Plt Count 128 K/uL (130-400) L 04/13/23 ANC 0.05 K/uL (1.4-6.5) L* 04/13/23 ALC 1.57 K/uL (1.2-3.4) 04/13/23 Neutrophils % (Manual) 2 % 04/13/23 Lymphocytes % (Manual) 32 % 04/13/23 Large Granular Lymphocytes 33 % 04/13/23 Monocytes % (Manual) 33 % 04/13/23 Basophils % (Manual) 1 % 04/13/23 Neutrophils # (Manual) 0.05 K/uL (1.40-6.50) L 04/13/23 Lymphocytes # (Manual) 0.77 K/uL (1.2-3.4) L 04/13/23 Absolute Large Granular Lymphocytes 0.80 K/uL 0803/29 Monocytes # (Manual) 0.80 K/uL (0.11-0.59) H 04/13/23 Basophils # (Manual) 0.02 K/uL (0-0.2) 04/13/23 Ovalocytes 1+ 04/13/23 Na 136 mmol/L (136-145) 04/13/23 K 4.1 mmol/L (3.5-5.1) 04/13/23 Cl 105 mmol/L (98-107) 04/13/23 CO2 25 mmol/L (21-32) 04/13/23 Anion Gap 6 (3-11) 04/13/23 BUN 14 mg/dl (6-23) 04/13/23 Creatinine 0.89 mg/dl (0.6-1.4) 04/13/23 BUN/Creatinine Ratio 15.7 (10-20) 04/13/23 Glucose Level 107 mg/dl (70-99(Fasting)) H 04/13/23 Ca 9.6 mg/dl (8.6-10.3) 04/13/23 Total Bilirubin 1.6 mg/dl (0.2-1.0) H 04/13/23 Direct Bilirubin 0.3 mg/dl (0-0.2) H 04/13/23 AST/SGOT 17 U/L (13-39) 04/13/23 ALT/SGPT 21 U/L (7-52) 04/13/23 Alkaline Phosphatase 76 U/L (34-104) 04/13/23 Total Protein 7.4 gm/dl (6.0-8.3) 04/13/23 Albumin 4.2 gm/dl (3.4-5.0) 04/13/23 CRP 5.88 mg/dl (0-0.5) H 04/13/23 Procalcitonin < 0.05 ng/ml (0-0.5) 04/13/23 Ferritin 158.3 ng/ml (8-388) 04/13/23 Fibrinogen 294 mg/dl (184-400) 04/13/23 INR 1.0 (0.9-1.1) 04/13/23 Adenovirus (PCR) Not Detected (NotDetected) 04/13/23 B. parapertussis DNA (PCR) Not Detected (NotDetected) 03/29 B. pertussis DNA (PCR) Not Detected (NotDetected) 04/13/23 C. pneumoniae DNA (PCR) Not Detected (NotDetected) 3 Coronavirus Type OC43 (PCR) Not Detected (NotDetected) 03/29 Coronavirus Type HKU1 (PCR) Not Detected (NotDetected) 03/29 Coronavirus Type 229E (PCR) Not Detected (NotDetected) 03/29 COVID-19 PCR Not Detected (NotDetected) 04/13/23 Coronavirus Type NL63 (PCR) Not Detected (NotDetected) 03/29 Human Metapneumovirus (PCR) Not Detected (NotDetected) 03/29 Influenza Virus Type A (PCR) Not Detected (NotDetected) Influenza Virus Type B (PCR) Not Detected (NotDetected) M. pneumoniae (PCR) Not Detected (NotDetected) 04/13/23 Parainfluenza Type 1 (PCR) Not Detected (NotDetected) 03/29 Parainfluenza Type 2 (PCR) Not Detected (NotDetected) 03/29 Parainfluenza Type 3 (PCR) Not Detected (NotDetected) 03/29 Parainfluenza Type 4 (PCR) Not Detected (NotDetected) 03/29 RSV (PCR) Not Detected (NotDetected) 04/13/23 Enterovirus/Rhinovirus (PCR) Not Detected (NotDetected) Chest CT 04/13/23 Chest X-Ray 04/13/23 Code Status & VTE Plan Code Status FULL CODE VTE Prophylaxis Plan VTE Prophylaxis will be ordered: Yes Supervising Physician Co-Signing Physician Notes I have seen and examined the patient and have discussed the case with the provider above. I agree with the assessment and plan as stated. 62 yo M presents with worsening fatigue, progressive dyspnea on exertion and intermittent dizziness for the past. New onset severe neutropenia has been noted on recent labwork per outpatient record. Patient reports chills intermittently but no fevers and is not febrile today. Inpatient and outpatient workup reveals normal B12 and folate levels, normal thyroid function, and no history of autoimmune disorders. He denies any issues with joint pains or unexplained rashes, and anti-DS Ab was ordered for SLE screening and was negative. He denies excessive alcohol intake. He reports no significant weight loss and does not appear to be malnourished. On exam he is hemodynamically stable and afebrile and oxygenating well on room air. Skin warm and dry. There is no gross focal neuromuscular deficit. He is mentating clearly. CV exam reveals 3/6 HARI in LSB that is known from aortic sclerosis. Reg rate and rhythm and no peripheral edema noted. Lungs are CTAB, abdomen exam is benign. He was started on broad spectrum cefepime while awaiting blood cultures and to see if this improves his leukopenia and symptoms. TASHI panel ordered, ESR/CRP are elevated and normal fibrinogen ruled out DIC. There is currently no clear source of infection. Differential includes but not limited to ineffective hematopoiesis from MDS, malignant cause such as acute/chronic leukemia, MDS, multiple myeloma, or myelofibrosis or other non malignant infectious etiology should be considered. Cancer screening appears UTD as he had a colonoscopy in 2010 and PSA 1.05 in 2020. Viral causes of pancytopenia such as EBV, CMV, HIV or parvovirus will be investigated. Pt is considering consent for HIV at this time. He has no history of abdominal imaging to investigate for splenomegaly. Will defer to oncology who was consulted. Cont to monitor for response to antibiotics and await results of studies and further hematology recommendations. DO Kailash ADDENDUM: update from Hematology is that he will undergo bone marrow biopsy in the morning. CT c/a/p reveals no evidence of lymphadenopathy and no splenomegaly. NPO p MN in preparation for procedure. DO Kailash
[2023-04-13] MEDS ORDERED: ALUMINUM/MAGNESIUM SUSP 30 ML UDC PO PRN (12:44)
[2023-04-13] MEDS ORDERED: FLUTICASONE PROPIONATE NA SPR 16 GM BTL SCH (12:44)
[2023-04-13] MEDS ORDERED: MAGNESIUM HYDROXIDE SUSP 30 ML UDC PO PRN (12:44)
[2023-04-13 15:33] LABS: Fibrinogen 294 mg/dl (184-400)
--- NOTE | 2023-04-13 16:47 | Oncology Consultation ---
Date of Consultation April 13, 2023 Assessment & Plan (1) Neutropenia: (2) Thrombocytopenia: (3) Microcytosis: Plan 62-year-old gentleman who presented with severe neutropenia and mild thrombocytopenia of unclear etiology. He has microcytosis with ferritin within normal limits. -Recommend peripheral smear review by pathology to evaluate for hematologic malignancy -Recommend obtaining CT CAP to evaluate for infection, lymphadenopathy or hepatosplenomegaly -Bone marrow biopsy to r/o hematologic malignancy. -Ferritin probably falsely normal in the setting of acute inflammation/infection. Recommend age appropriate screening with colonoscopy (outpatient) Thank you for this consult. Hematology continue following patient while in the hospital. Please feel free to call if you have any questions. History of Present Illness Reason for Consultation: Neutropenia/thrombocytopenia Attending Physician: Viviana Linder DO History of Present Illness 62 year old gentleman who presented to ED at [facility] with worsening fatigue. Labs obtained the ER revealed leukopenia with white cell count of 2.42, severe neutropenia with ANC of 50, normal hemoglobin of 14.4, hematocrit of 41.5 with MCV of 77.7 and mild thrombocytopenia platelet count of 124,000. Vitamin B12 and folate levels were normal. Ferritin was also normal. He has had infectious work-up including respiratory bio fire which has been negative. Complains of chronic night sweats, Fever of 101.4 about 1 week ago. Also cough which started today. Has not had colonoscopy in more than 10 years Allergies Allergy/AdvReac Type Severity Reaction Status Date / Time No Known Allergies Allergy Verified 12/29/22 01:21 Home Medications Medication Instructions Recorded Confirmed Type losartan 25 mg tablet 25 mg PO DAILY 05/08/22 04/13/23 History rosuvastatin 10 mg tablet 10 mg PO DAILY 05/08/22 04/13/23 History famotidine 20 mg tablet 20 mg PO BID 12/29/22 04/13/23 History fluticasone propionate 50 1 spray intranasal UD 12/29/22 04/13/23 History mcg/actuation nasal spray,suspension meloxicam 7.5 mg tablet 7.5 mg PO DAILY PRN Pain 04/13/23 04/13/23 History semaglutide 2 mg/dose (8 mg/3 mL) 2 mg subcut DIRECTED 04/13/23 04/13/23 History subcutaneous pen injector (Ozempic) Patient History Medical History (Updated 04/13/23 @ 16:53 by Samia Garner MD) Acute sinusitis Anxiety Bronchitis Cervical strain Chest pain Complete left bundle branch block (LBBB) determined by ECG COVID-19 Fall GERD (gastroesophageal reflux disease) HLD (hyperlipidemia) Hypertension Hypokalemia Pain of left sternoclavicular joint Pleuritic chest pain Pneumonia due to COVID-19 virus Radicular pain of left upper extremity Tendinitis of right shoulder Tendinitis of right shoulder Vertigo Work related injury Surgical History No pertinent past surgical history Family History Brother Cancer Prostate Social History Smoking Status: Current some day smoker Tobacco Type: Cigars Second Hand Exposure: No; Do You Dip or Chew Tobacco: No; Hx Alcohol Use: No Hx Substance Use: No Preferred Language: Estonian Communication Ability: Effective Spring Internship Required: No Beliefs That Will Affect Care: None marital status: Current Living Situation: Spouse current occupational status: employed 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 Feels Safe at Home: Yes Assistive Devices: None Results & Data Vital Signs (Past 12 Hours) Vital Signs Temp Pulse Pulse Resp BP BP Pulse Ox 04/13/23 16:00 84 04/13/23 13:00 79 04/13/23 12:44 36.4 C L 81 16 136/83 97 04/13/23 12:44 04/13/23 10:00 77 14 123/75 96 04/13/23 09:30 81 18 131/80 95 04/13/23 09:00 90 16 134/91 96 04/13/23 08:55 82 17 134/96 96 04/13/23 09:17 95 04/13/23 09:03 83 18 134/91 95 04/13/23 09:03 81 18 95 04/13/23 08:56 83 04/13/23 08:42 36.0 C L 88 20 129/66 97 Pulse Ox O2 Del Method O2 Del Method 04/13/23 16:00 04/13/23 13:00 04/13/23 12:44 Room Air 04/13/23 12:44 97 Room Air 04/13/23 10:00 Room Air 04/13/23 09:30 Room Air 04/13/23 09:00 Room Air 04/13/23 08:55 Room Air 04/13/23 09:17 Room Air 04/13/23 09:03 04/13/23 09:03 04/13/23 08:56 04/13/23 08:42 Room Air
[2023-04-13] MEDS: CEFEPIME 2,000 MG in SYRINGE 0 ML IV SCH (17:22)
[2023-04-13 18:32] LABS: Appearance Urine Clear (Clear); Bilirubin Urine Negative (Negative); Blood Urine Negative (Negative); Color Urine Yellow; Glucose Urine UA Negative (Negative); Ketones Urine Negative (Negative); Leukocyte Esterase Urine Negative (Negative); Nitrite Urine Negative (Negative); Protein Urine Negative (Negative); Specific Gravity Urine 1.009 (1.000-1.030); Urobilinogen Urine Negative (Negative); pH Urine 6.5 (4.5-7.5)
--- NOTE | 2023-04-13 19:17 | CT Scan Report ---
CT chest diagnostic wo con, CT abd pelvis wo con CT DOSE: 2512.45 mGy.cm HISTORY: eval for splenomegaly and LAD TECHNIQUE: Multiaxial CT images of the chest, abdomen, and pelvis were performed without contrast. A dose lowering technique was utilized adhering to the principles of ALARA. COMPARISON: Chest CTA 11/19/2020. FINDINGS: Chest CT: The thyroid gland appears unremarkable. No mediastinal, hilar, or axillary lymphadenopathy identified. The heart is normal in size. No pleural or pericardial effusions. Normal esophagus. Ashley l caliber thoracic aorta. Moderate coronary artery calcifications are noted. No suspicious lytic or b lastic osseous lesions. The central airways are patent. No focal lung consolidations to suggest a pne umonia. No evidence for pulmonary edema. There is a stable 3 mm nodule within the right lung apex. Th is is best seen on image 29. There is a 4 mm subpleural nodule within the right lower lobe on image 1 21 abutting the major fissure. These are considered to be benign given the long-term stability. No mason spicious pulmonary nodules identified. Abdomen/pelvis CT: No pneumoperitoneum. No pneumatosis. No suspicious lytic are blastic osseous lesio ns. The spleen remains mildly enlarged measuring 13.2 cm in length. Small fat-containing right inguin al hernia. Tiny fat-containing umbilical hernia. There are 3 small gallstones measuring up to 7 mm. N o gallbladder wall thickening. The stable 2 cm hypodense lesion within the left hepatic lobe. This fa vors a cyst but is incompletely characterized on this noncontrast study. The spleen remains mildly en larged measuring 13 cm in length. The unenhanced pancreas and adrenal glands unremarkable. There are few bilateral renal hypodense lesions with the largest on the right measuring 3 cm. These are incompl etely characterized on this noncontrast study but statistically represent cysts. There is a 4 mm ston e within the right kidney. No left renal calculi or ureteral calculi. No hydronephrosis. Mild bilater al perinephric edema. This is likely chronic. No retroperitoneal or mesenteric lymphadenopathy. Mild calcified plaque within the normal caliber abdominal aorta. No pelvic lymphadenopathy or pelvic free fluid. Mild bladder wall thickening. This is likely due to underdistention. Suboptimal evaluation for bowel pathology due to the lack of intravenous and oral contrast. There are a few colonic diverticul a. No evidence for an acute diverticulitis. No dilated loops of bowel to suggest an obstruction. Norm al appendix. Focal thickening within the short segment of the distal ileum within the right lower kevin drant best seen on image 290. There is mild surrounding fat stranding. This is consistent with a nons pecific ileitis. This favors an infectious or inflammatory process. IMPRESSION: 1. No lymphadenopathy within the chest, abdomen, or pelvis. 2. Stable mild splenomegaly. 3. Focal thickening within a short segment of the distal ileum with adjacent mild fat stranding. This likely represents a nonspecific ileitis. 4. Cholelithiasis. 5. Additional findings as described above. ACT 112: Negative or not required by law. Electronically signed by: Curly Okeefe M.D. 04/13/2023 7:14 PM
--- NOTE | 2023-04-13 19:35 | Electrocardiogram Report ---
Test Reason : Blood Pressure : / mmHG Vent. Rate : 086 BPM Atrial Rate : 086 BPM P-R Int : 194 ms QRS Dur : 138 ms QT Int : 390 ms P-R-T Axes : 050 -29 087 degrees QTc Int : 466 ms Normal sinus rhythm Left bundle branch block Abnormal ECG When compared with ECG of 19-NOV-2020 02:52, No significant change was found Confirmed by Garfield Avery ([id number]) on 04/13/2023 7:35:07 PM Referred By: Confirmed By:Fede Aevry
[2023-04-13] MEDS: FAMOTIDINE 20 MG TAB PO SCH (20:35)
[2023-04-14] MEDS: CEFEPIME 2,000 MG in SYRINGE 0 ML IV SCH ×3 (01:49→17:10)
[2023-04-14 07:23] LABS: Albumin Globulin Ratio 1.3 (0.9-2); Albumin Level 3.8 gm/dl (3.4-5.0); BUN Creatinine Ratio 13.3 (10-20); Bilirubin,Total 1.7 mg/dl (0.2-1.0); Calcium 8.9 mg/dl (8.6-10.3); Creatinine Clr Calc Pharmacy 104.6 ml/min; Est GFR (Non-African American) 90.6 ml/min; Globulin 2.9 gm/dl (2.5-4.0); Magnesium 1.8 mg/dl (1.7-2.4); Potassium 3.8 mmol/L (3.5-5.1); Total Protein 6.7 gm/dl (6.0-8.3)
[2023-04-14 07:24] LABS: Hematocrit (blood only) 40.6 % (42.0-52.0); Hemoglobin 13.6 g/dl (14.0-18.0); Mean Corpuscular Hemoglobin 26.2 pg (25.0-34.0); Mean Corpuscular Hgb Conc 33.5 g/dL (32.0-36.0); Mean Corpuscular Volume 78.2 fL (80.0-100.0); Mean Platelet Volume 10.4 fL (9.4-12.4); Platelet Count 110 K/uL (130-400); RDW Coefficient of Variation 13.6 % (11.5-14.5); RDW Standard Deviation 38.7 fL (36.4-46.3); Red Blood Count 5.19 M/uL (4.70-6.10); White Blood Count 1.86 K/ul (4.8-10.8)
[2023-04-14 07:57] LABS: Basophils # (auto) 0.02 K/uL (0-0.2); Basophils % (auto) 1.1 %; Lymphocytes # (auto) 1.04 K/uL (1.2-3.4); Lymphocytes % (auto) 55.9 %; Monocytes # (auto) 0.68 K/uL (0.11-0.59); Monocytes % (auto) 36.6 %; Neutrophils # (auto) 0.12 K/uL (1.40-6.50); Neutrophils % (auto) 6.4 %
[2023-04-14] MEDS: ROSUVASTATIN CALCIUM 10 MG TAB PO SCH (08:35)
[2023-04-14] MEDS: LOSARTAN POTASSIUM 25 MG TAB PO SCH (08:35)
[2023-04-14] MEDS: FERROUS SULFATE 325 MG TAB PO SCH (08:35)
[2023-04-14] MEDS: FAMOTIDINE 20 MG TAB PO SCH ×2 (08:35→20:01)
[2023-04-14] MEDS ORDERED: ACETAMINOPHEN 1000 MG/100 ML IV IV ONE (11:21)
[2023-04-14] MEDS ORDERED: fentaNYL citrate PF 100 MCG/2 ML VIAL ONE (11:21)
--- NOTE | 2023-04-14 13:27 | Hospitalist Progress Note ---
Date of Service April 14, 2023 Assessment & Plan (1) Neutropenia: (2) HLD (hyperlipidemia): (3) Hypertension: (4) LBBB (left bundle branch block): Plan Patient is a 62 yr male who has significant past medical history of HTN, HLD, LBBB, GERD, history of COVID-19 who presents to ED secondary to worsening fatigue, ANTOINE, poor appetite x2 to 3 months. Neutropenia Thrombocytopenia Mild splenomegaly Nonspecific ileitis incidental finding on CT.--No signs of nausea, vomiting, diarrhea Cholelithiasis--incidental finding. Asymptomatic Patient with progression of neutropenia since February Patient reports fatigue that is progressive, chills/feeling hot, occasional night sweats, but no significant weight loss No known recent illness --CT Chest/Abd:No lymphadenopathy within the chest, abdomen, or pelvis. Stable mild splenomegaly. Focal thickening within a short segment of the distal ileum with adjacent mild fat stranding. This likely represents a nonspecific ileitis. Cholelithiasis. -- Blood cultures negative to date --Had bone marrow biopsy on 04/14/2023 --Negative respiratory panel --Serum copper level pending --Immunological workup pending -- Serological testing for hepatitis pending --Serological test for parvovirus pending --Flow cytometry, bone marrow biopsy analysis pending -- Empirically on cefepime --Appreciate hematology/oncology input --Further management based on pending results Hyperlipidemia Continue statin Hypertension Continue losartan GERD Continue Pepcid Weight loss pt reports being on ozempic for ~ 1 year for attempted weight loss Aortic Sclerosis Echo 08/2022 revealed normal EF, LVH, grade 1 diastolic dysfunction and mild aortic valve sclerosis Monitor DVT Px: SCDs Re: Thrombocytopenia, Bone Marrow Bx Code Status FULL CODE Admission and Anticipated Discharge Date Admission Date: April 13, 2023 Subjective Patient is seen and examined at bedside States having generalized weakness for many months associated with poor appetite Admits to have dry cough since 1 day Afebrile Denies any chest pain, nausea, vomiting, diarrhea, abdominal pain Also reports having dyspnea on exertion Had bone marrow biopsy today Review of Systems Review of Systems: All systems reviewed & are unremarkable except as noted in Subjective Physical Exam Physical Exam: Physical Exam: Vitals signs as noted above General Appearance:Moderately built and nourished, no apparent distress Head: normocephalic, Atraumatic Eyes: normal inspection, EOMI Neck: supple, Trachea midline Respiratory/Chest: Normal breath sounds, CTA, No accessory muscle use Cardiovascular: S1, S2, No murmur Abdomen/GI:Soft, Non tender, Bowel sounds present Extremities/Musculoskeletal:normal inspection, no edema Neurologic/Psych:AAOX3, grossly no focal neurological deficits Skin: normal color, warm Results & Data Results & Data Vital Signs (Past 12 Hours) Vital Signs Temp Pulse Pulse Resp BP Pulse Ox O2 Del Method 04/14/23 11:17 37.2 C 83 16 121/79 95 Room Air 04/14/23 08:00 85 04/14/23 07:22 37.1 C 82 18 120/75 94 Room Air 04/14/23 04:59 37.1 C 82 20 125/77 95 Room Air 04/14/23 01:25 82 Laboratory Results Short CBC 04/14/23 Range/Units 06:24 WBC 1.86 L (4.8-10.8) K/ul Hgb 13.6 L (14.0-18.0) g/dl Hct 40.6 L (42.0-52.0) % Plt Count 110 L (130-400) K/uL BMP 04/14/23 06:24 Sodium 137 Potassium 3.8 Chloride 106 Carbon Dioxide 23 BUN 12 Creatinine 0.90 Glucose 114 H Calcium 8.9 Liver Function 04/14/23 Range/Units 06:24 Total Bilirubin 1.7 H (0.2-1.0) mg/dl AST 15 (13-39) U/L ALT 17 (7-52) U/L Alkaline Phosphatase 66 (34-104) U/L Albumin 3.8 (3.4-5.0) gm/dl Urine 04/13/23 Range/Units Unknown Urine Color Yellow Urine Appearance Clear (Clear) Urine pH 6.5 (4.5-7.5) Ur Specific [place] 1.009 (1.000-1.030) Urine Protein Negative (Negative) Urine Glucose (UA) Negative (Negative)
[2023-04-14 14:08] LABS: EBV Virus Capsid Ag IgG Ab >750.00 U/mL
--- NOTE | 2023-04-14 15:58 | CT Scan Report ---
CT-guided bone marrow biopsy INDICATION: Neutropenia PROCEDURE: Procedure and risks were explained. Informed consent was obtained. A final timeout was com pleted. The patient was placed prone on the CT exam table. The left gluteal region was prepped and dr aped in sterile fashion. 1% buffered lidocaine was utilized for skin anesthesia. The patient received 1 g Tylenol and 75 mcg fentanyl IV. Utilizing CT guidance, an 11-gauge bone biopsy needle was advanced into the left iliac bone. Multiple aspirates and one bone core was obtained and given to the lab. The needle was removed and Band-Aid a pplied. The patient tolerated the procedure well. Vital signs will be monitored postprocedure. IMPRESSION: Bone marrow biopsy as above. Performed, dictated, and signed by Cedric Gonzales PA-C; to be co-signed by Dr. Curly Okeefe. Electronically signed by: Curly Okeefe M.D. 04/14/2023 3:59 PM
[2023-04-14] MEDS: ONDANSETRON INJ 2 MG/ML 2 ML VIAL IV PRN (19:56)
[2023-04-14] MEDS: ACETAMINOPHEN 325 MG TAB PO PRN (23:25)
[2023-04-15] MEDS: CEFEPIME 2,000 MG in SYRINGE 0 ML IV SCH ×3 (01:31→17:40)
[2023-04-15 03:42] LABS: Babesia microti DNA Not Detected (Not Detected)
[2023-04-15 08:17] LABS: Hematocrit (blood only) 40.8 % (42.0-52.0); Hemoglobin 13.7 g/dl (14.0-18.0); Mean Corpuscular Hgb Conc 33.6 g/dL (32.0-36.0); Mean Corpuscular Volume 77.6 fL (80.0-100.0); Mean Platelet Volume 9.9 fL (9.4-12.4); Platelet Count 122 K/uL (130-400); RDW Coefficient of Variation 13.5 % (11.5-14.5); RDW Standard Deviation 38.1 fL (36.4-46.3); Red Blood Count 5.26 M/uL (4.70-6.10); White Blood Count 2.12 K/ul (4.8-10.8)
[2023-04-15 08:30] LABS: BUN Creatinine Ratio 13.4 (10-20); Calcium 8.9 mg/dl (8.6-10.3); Creatinine Clr Calc Pharmacy 95.6 ml/min; Est GFR (African American) 95.9 ml/min; Est GFR (Non-African American) 82.7 ml/min; Magnesium 1.9 mg/dl (1.7-2.4); Potassium 3.8 mmol/L (3.5-5.1)
[2023-04-15] MEDS: FERROUS SULFATE 325 MG TAB PO SCH (08:35)
[2023-04-15] MEDS: ROSUVASTATIN CALCIUM 10 MG TAB PO SCH (08:35)
[2023-04-15] MEDS: FAMOTIDINE 20 MG TAB PO SCH ×2 (08:35→20:29)
[2023-04-15] MEDS: LOSARTAN POTASSIUM 25 MG TAB PO SCH (08:36)
[2023-04-15 08:42] LABS: Basophils # (auto) 0.02 K/uL (0-0.2); Basophils % (auto) 0.9 %; Eosinophils # (auto) 0.01 K/uL (0-0.50); Eosinophils % (auto) 0.5 %; Lymphocytes # (auto) 0.98 K/uL (1.2-3.4); Lymphocytes % (auto) 46.2 %; Monocytes # (auto) 0.87 K/uL (0.11-0.59); Neutrophils # (auto) 0.24 K/uL (1.40-6.50); Neutrophils % (auto) 11.4 %
[2023-04-15] MEDS: ONDANSETRON INJ 2 MG/ML 2 ML VIAL IV PRN ×2 (09:42→17:39)
[2023-04-15] MEDS: ACETAMINOPHEN 325 MG TAB PO PRN (09:47)
--- NOTE | 2023-04-15 15:37 | Hospitalist Progress Note ---
Date of Service April 15, 2023 Assessment & Plan (1) Neutropenia: (2) HLD (hyperlipidemia): (3) Hypertension: (4) LBBB (left bundle branch block): Plan Patient is a 62 yr male who has significant past medical history of HTN, HLD, LBBB, GERD, history of COVID-19 who presents to ED secondary to worsening fatigue, ANTOINE, poor appetite x2 to 3 months. Neutropenia Thrombocytopenia Mild splenomegaly Nonspecific ileitis incidental finding on CT.--No signs of nausea, vomiting, diarrhea Cholelithiasis--incidental finding. Asymptomatic Patient with progression of neutropenia since February Patient reports fatigue that is progressive, chills/feeling hot, occasional night sweats, but no significant weight loss No known recent illness --CT Chest/Abd:No lymphadenopathy within the chest, abdomen, or pelvis. Stable mild splenomegaly. Focal thickening within a short segment of the distal ileum with adjacent mild fat stranding. This likely represents a nonspecific ileitis. Cholelithiasis. -- Blood cultures negative to date --Had bone marrow biopsy on 04/14/2023 --Negative respiratory panel --Serum copper level pending --Immunological workup pending -- Serological testing for hepatitis pending --Serological test for parvovirus pending --Serologies with history of prior EBV infection --Bone marrow chromosome analysis, Path pending --Flow cytometry pending -- Empirically on cefepime--Continue --Appreciate hematology/oncology input Neutropenia better today Consult ID as well Hyperlipidemia Continue statin Hypertension Continue losartan GERD Continue Pepcid Weight loss pt reports being on ozempic for ~ 1 year for attempted weight loss Aortic Sclerosis Echo 08/2022 revealed normal EF, LVH, grade 1 diastolic dysfunction and mild aortic valve sclerosis Monitor DVT Px: SCDs Re: Thrombocytopenia, Bone Marrow Bx Code Status FULL CODE Admission and Anticipated Discharge Date Admission Date: April 15, 2023 Subjective Patient is seen and examined at bedside Had low-grade fever overnight Subjectively feels better today Less cough today Diaphoresis intermittently No new complaints Denies any chest pain, dyspnea, nausea, vomiting, diarrhea, abdominal pain Review of Systems Review of Systems: All systems reviewed & are unremarkable except as noted in Subjective Physical Exam Physical Exam: Physical Exam: Vitals signs as noted above General Appearance:Moderately built and nourished, no apparent distress Head: normocephalic, Atraumatic Eyes: normal inspection, EOMI Neck: supple, Trachea midline Respiratory/Chest: Normal breath sounds, CTA, No accessory muscle use Cardiovascular: S1, S2, No murmur Abdomen/GI:Soft, Non tender, Bowel sounds present Extremities/Musculoskeletal:normal inspection, no edema Neurologic/Psych:AAOX3, grossly no focal neurological deficits Skin: normal color, warm Results & Data Results & Data Vital Signs (Past 12 Hours) Vital Signs Temp Pulse Pulse Resp BP Pulse Ox O2 Del Method 04/15/23 14:50 37.0 C 77 18 104/64 94 Room Air 04/15/23 11:19 37.5 C 79 16 109/67 95 Room Air 04/15/23 09:00 Room Air 04/15/23 07:47 77 04/15/23 07:14 36.8 C 86 18 117/79 95 Room Air 04/15/23 04:02 36.7 C 85 20 135/80 95 Room Air Laboratory Results Short CBC 04/15/23 Range/Units 07:12 WBC 2.12 L (4.8-10.8) K/ul Hgb 13.7 L (14.0-18.0) g/dl Hct 40.8 L (42.0-52.0) % Plt Count 122 L (130-400) K/uL BMP 04/15/23 07:12 Sodium 137 Potassium 3.8 Chloride 104 Carbon Dioxide 26 BUN 13 Creatinine 0.97 Glucose 102 H Calcium 8.9
[2023-04-15 16:17] LABS: Epstein Barr Virus Early Ag Ab >150.00 U/mL
[2023-04-15] MEDS: POLYETHYLENE (MIRALAX) 17 GM PACK PO PRN (20:29)
[2023-04-16] MEDS: CEFEPIME 2,000 MG in SYRINGE 0 ML IV SCH ×3 (01:31→16:08)
[2023-04-16 06:58] LABS: Hematocrit (blood only) 40.9 % (42.0-52.0); Mean Corpuscular Hemoglobin 26.1 pg (25.0-34.0); Mean Corpuscular Hgb Conc 34.2 g/dL (32.0-36.0); Mean Corpuscular Volume 76.3 fL (80.0-100.0); Mean Platelet Volume 10.1 fL (9.4-12.4); Platelet Count 128 K/uL (130-400); RDW Coefficient of Variation 13.6 % (11.5-14.5); RDW Standard Deviation 37.2 fL (36.4-46.3); Red Blood Count 5.36 M/uL (4.70-6.10); White Blood Count 2.14 K/ul (4.8-10.8)
[2023-04-16 07:04] LABS: BUN Creatinine Ratio 16.3 (10-20); Calcium 8.8 mg/dl (8.6-10.3); Est GFR (Non-African American) 92.3 ml/min
--- NOTE | 2023-04-16 07:29 | Progress Note ---
Date of Service April 16, 2023 Assessment & Plan (1) Neutropenia: (2) Thrombocytopenia: (3) Microcytosis: (4) LBBB (left bundle branch block): Plan Preliminary results of bone marrow biopsy not suggestive of hematologic malignancy, still awaiting further molecular testing on bone marrow sample. 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 Since there is no evidence of obvious underlying hematologic malignancy, would recommend giving filgrastim 480 mcg SC today. He can be discharged once clinically stable to follow-up with me in clinic at which time we will discuss final bone marrow biopsy results Admission and Anticipated Discharge Date Admission Date: April 15, 2023 Subjective Denies any new issues. Continues to complain of fatigue. Preliminary bone marrow biopsy result based on discussion on pathology does not show any evidence to suggest hematologic malignancy Results & Data Vital Signs (Past 12 Hours) Vital Signs Temp Pulse Pulse Resp BP Pulse Ox O2 Del Method 04/16/23 07:00 94 H 04/16/23 07:25 36.9 C 74 16 120/79 94 Room Air 04/16/23 03:23 36.9 C 76 18 117/74 94 Room Air 04/16/23 00:00 79 04/15/23 23:18 37.1 C 83 16 117/76 93 Room Air 04/15/23 20:02 37 C 87 16 124/80 92 Room Air
[2023-04-16 07:42] LABS: Basophils # (auto) 0.02 K/uL (0-0.2); Basophils % (auto) 0.9 %; Eosinophils # (auto) 0.01 K/uL (0-0.50); Eosinophils % (auto) 0.5 %; Lymphocytes # (auto) 1.07 K/uL (1.2-3.4); Monocytes # (auto) 0.81 K/uL (0.11-0.59); Monocytes % (auto) 37.9 %; Neutrophils # (auto) 0.23 K/uL (1.40-6.50); Neutrophils % (auto) 10.7 %
[2023-04-16] MEDS: ROSUVASTATIN CALCIUM 10 MG TAB PO SCH (08:45)
[2023-04-16] MEDS: FAMOTIDINE 20 MG TAB PO SCH (08:45)
[2023-04-16] MEDS: LOSARTAN POTASSIUM 25 MG TAB PO SCH (08:45)
[2023-04-16] MEDS: FERROUS SULFATE 325 MG TAB PO SCH (08:45)
[2023-04-16] MEDS: POLYETHYLENE (MIRALAX) 17 GM PACK PO PRN (08:51)
[2023-04-16] MEDS ORDERED: FILGRASTIM 480 MCG/1.6 ML VIAL SC ONE (09:15)
[2023-04-16] MEDS ORDERED: BENZOCAINE 20% (ORAJEL) 11.9 GM TUBE MT PRN (10:52)
[2023-04-16] MEDS: ACETAMINOPHEN 325 MG TAB PO PRN (15:24)
--- NOTE | 2023-04-16 15:48 | Hospitalist Progress Note ---
Date of Service April 16, 2023 Assessment & Plan (1) Neutropenia: (2) HLD (hyperlipidemia): (3) Hypertension: (4) LBBB (left bundle branch block): Plan Patient is a 62 yr male who has significant past medical history of HTN, HLD, LBBB, GERD, history of COVID-19 who presents to ED secondary to worsening fatigue, ANTOINE, poor appetite x2 to 3 months. Neutropenia Thrombocytopenia Mild splenomegaly Nonspecific ileitis incidental finding on CT.--No signs of nausea, vomiting, roula rrhea Cholelithiasis--incidental finding. Asymptomatic Patient with progression of neutropenia since February Patient reports fatigue that is progressive, chills/feeling hot, occasional night sweats, but no significant weight loss No known recent illness --CT Chest/Abd:No lymphadenopathy within the chest, abdomen, or pelvis. Stable mild splenomegaly. Focal thickening within a short segment of the distal ileum with adjacent mild fat stranding. This likely represents a nonspecific ileitis. Cholelithiasis. -- Blood cultures negative to date --Had bone marrow biopsy on 04/14/2023 --Negative respiratory panel --Serum copper level pending --Immunological workup pending -- Serological testing for hepatitis pending --Serological test for parvovirus pending --Serologies with history of prior EBV infection --Bone marrow chromosome analysis, Path pending --Flow cytometry pending -- Empirically on cefepime--Continue 7 day course per ID --Appreciate hematology/oncology input Neutropenia stable Appreciate ID Input Patient refused HIV testing Preliminary bone marrow biopsy not suggestive of hematologic malignancy; monoclonal testing pending, 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 Received filgrastim today Needs follow-up with oncology upon discharge Hyperlipidemia Continue statin Hypertension Continue losartan GERD Continue Pepcid Weight loss pt reports being on ozempic for ~ 1 year for attempted weight loss Aortic Sclerosis Echo 08/2022 revealed normal EF, LVH, grade 1 diastolic dysfunction and mild aortic valve sclerosis Monitor DVT Px: SCDs Re: Thrombocytopenia, Bone Marrow Bx Code Status FULL CODE Disposition Home Admission and Anticipated Discharge Date Admission Date: April 15, 2023 Subjective Patient is seen and examined at bedside States having some soreness at the site of aphthous ulcer this morning Afebrile today No other complaints Denies any chest pain, dyspnea, nausea, vomiting, diarrhea, abdominal pain Plan to discharge home today Review of Systems Review of Systems: All systems reviewed & are unremarkable except as noted in Subjective Physical Exam Physical Exam: Physical Exam: Vitals signs as noted above General Appearance:Moderately built and nourished, no apparent distress Head: normocephalic, Atraumatic Eyes: normal inspection, EOMI Neck: supple, Trachea midline Respiratory/Chest: Normal breath sounds, CTA, No accessory muscle use Cardiovascular: S1, S2, No murmur Abdomen/GI:Soft, Non tender, Bowel sounds present Extremities/Musculoskeletal:normal inspection, no edema Neurologic/Psych:AAOX3, grossly no focal neurological deficits Skin: normal color, warm Results & Data Results & Data Vital Signs (Past 12 Hours) Vital Signs Temp Pulse Pulse Resp BP Pulse Ox O2 Del Method 04/16/23 14:48 78 04/16/23 11:32 37.0 C 74 16 128/82 93 Room Air 04/16/23 11:31 36.9 C 74 16 120/79 94 04/16/23 08:00 Room Air 04/16/23 07:00 94 H 04/16/23 07:25 36.9 C 74 16 120/79 94 Room Air Laboratory Results Short CBC 04/16/23 Range/Units 06:30 WBC 2.14 L (4.8-10.8) K/ul Hgb 14.0 (14.0-18.0) g/dl Hct 40.9 L (42.0-52.0) % Plt Count 128 L (130-400) K/uL BMP 04/16/23 06:30 Sodium 137 Potassium 4.0 Chloride 104 Carbon Dioxide 25 BUN 14 Creatinine 0.86 Glucose 111 H Calcium 8.8
--- NOTE | 2023-04-16 15:55 | Discharge Summary ---
Date of Service April 16, 2023 Admission HPI Per Admitting Provider This is a 62-year-old male who has significant past medical history of HTN, HLD, LBBB, GERD, history of COVID-19 who presents to ED secondary to worsening fatigue x2 to 3 months. Patient complains of not feeling well over the last 2 to 3 months and having increasing and progressive fatigue. He states even simple activities cause him to play out. Patient was seen in outpatient setting for similar complaints on 02/23/2023 which revealed the start of a neutropenia and decrease in absolute neutrophil count. It was felt that this may be caused by new medication meloxicam and therefore he was told to hold it. He had repeat blood work done on 03/27/2023 which showed a worsening of neutropenia and thrombocytopenia despite holding medication. He is active outdoors and this past weekend was camping. He states on the weekend typically when the camp they eat a lot of food and he just had no appetite. He reports approximately 4 pound weight loss. He does occasionally get night sweats, but states this is not out of the ordinary for him. He denies any known tick bite, rash, polyarthralgia, recent illness or sick contact. Although meloxicam he denies any new medications. He denies any documented fever but states he always alternates between chills and sweats. He denies any lung disease but states today prior to coming in he fell he had a hard time, "catching his breath." He denies any upper respiratory symptoms or cough. He has felt nauseous lately and otherwise decreased appetite. He denies chest pain, and change in bowel or urinary habits. He denies ever having anything like this in the past. In ED patient was hemodynamically stable and afebrile. Lab work noted a mild decrease in hematocrit of 41.5, neutropenia with a WBC of 2.42 and absolute neutrophil count of 0.05k/uL, decrease lymphoctye 0.77. He has a normal iron panel, vit b12 and folate. His respiratory bio fire was negative. Initial Lyme screen was negative. Anaplasma and Babesia smear were negative for concerning findings but PCR still pending. He received empiric cefepime and Vanco in the ED for his neutropenia despite no fever. He denies elicit drug use, he smokes cigars occasional and only drinks a few wine coolers yearly. 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 Admission Exam Per Admitting Provider Constitutional: WD/WN, vitals as above, NAD, sitting up in bed, pleasant, conversing easily Head: Normocephalic, Atraumatic Eyes: PERRL, conjunctivae normal, anicteric sclerae ENMT: external ear and nose normal, oropharynx normal Neck: trachea midline, no thyromegaly normal visual inspection Respiratory: normal respiratory effort, lungs clear to auscultation, no wheeze, rales, rhonchi. Normal insp/exp effort, no accessory muscle use Cardiovascular: RRR, 1/6 HARI RUSB, no edema Vessels: no JVD or carotid bruit Chest: normal inspection of chest Abdomen: normal bowel sounds, soft, nontender, no hepatosplenomegaly Musculoskeletal: no cyanosis or clubbing, extremities motor strength 5/5 Skin: no rashes, warm and dry normal turgor Neurologic: PERRL, EOMI, accommodation nl, no face palsy, no dysarthria CN's II-XI intact bilaterally and moves all extremities Psychiatric: A+Ox3, euthymic affect Lymphatic: no cervical or axillary lymphadenopathy : deferred Principal Diagnosis Febrile neutropenia Thrombocytopenia Discharge Data Allergies Allergy/AdvReac Type Severity Reaction Status Date / Time No Known Allergies Allergy Verified 12/29/22 01:21 Consultations 04/13/23 10:59 ED Decision to Admit Stat 04/13/23 12:44 Consult Hematology Routine 04/15/23 09:30 Consult Infectious Diseases Routine Procedures Performed Laboratory Results WBC 2.14 K/ul (4.8-10.8) L 04/16/23 06:30 RBC 5.36 M/uL (4.70-6.10) 04/16/23 06:30 Hgb 14.0 g/dl (14.0-18.0) 04/16/23 06:30 Hct 40.9 % (42.0-52.0) L 04/16/23 06:30 MCV 76.3 fL (80.0-100.0) L 04/16/23 06:30 MCH 26.1 pg (25.0-34.0) 04/16/23 06:30 MCHC 34.2 g/dL (32.0-36.0) 04/16/23 06:30 RDW Std Deviation 37.2 fL (36.4-46.3) 04/16/23 06:30 RDW Coeff of Cornelius 13.6 % (11.5-14.5) 04/16/23 06:30 Plt Count 128 K/uL (130-400) L 04/16/23 06:30 MPV 10.1 fL (9.4-12.4) 04/16/23 06:30 Immature Gran % (Auto) 0.0 % 04/16/23 06:30 Neut % (Auto) 10.7 % 04/16/23 06:30 Lymph % (Auto) 50.0 % 04/16/23 06:30 [place] % (Auto) 37.9 % 04/16/23 06:30 Eos % (Auto) 0.5 % 04/16/23 06:30 Baso % (Auto) 0.9 % 04/16/23 06:30 Neut # (Auto) 0.23 K/uL (1.40-6.50) L* 04/16/23 06:30 Lymph # (Auto) 1.07 K/uL (1.2-3.4) L 04/16/23 06:30 [place] # (Auto) 0.81 K/uL (0.11-0.59) H 04/16/23 06:30 Eos # (Auto) 0.01 K/uL (0-0.50) 04/16/23 06:30 Baso # (Auto) 0.02 K/uL (0-0.2) 04/16/23 06:30 Immature Gran # (Auto) 0.00 K/uL (0.01-0.20) L 04/16/23 06:30 Neutrophils % (Manual) 2 % 04/13/23 08:50 Lymphocytes % (Manual) 32 % 04/13/23 08:50 Monocytes % (Manual) 33 % 04/13/23 08:50 Basophils % (Manual) 1 % 04/13/23 08:50 Neutrophils # (Manual) 0.05 K/uL (1.40-6.50) L 04/13/23 08:50 Total Absolute Neuts 0.05 K/uL (1.4-6.5) L* 04/13/23 08:50 Lymphocytes # (Manual) 0.77 K/uL (1.2-3.4) L 04/13/23 08:50 Total Abs Lymphocytes 1.57 K/uL (1.2-3.4) 04/13/23 08:50 Monocytes # (Manual) 0.80 K/uL (0.11-0.59) H 04/13/23 08:50 Basophils # (Manual) 0.02 K/uL (0-0.2) 04/13/23 08:50 Large Granular Lymphs 33 % 04/13/23 08:50 # Lrg Granular Lymphs 0.80 K/uL 04/13/23 08:50 Ovalocytes 1+ 04/13/23 08:50 Peripher Smr Path Cons 04/13/23 08:50 ESR 21 mm/hr (0-20) H 04/13/23 10:46 PT 11.0 Seconds (9.0-12.0) 04/13/23 08:50 INR 1.0 (0.9-1.1) 04/13/23 08:50 Fibrinogen 294 mg/dl (184-400) 04/13/23 14:48 Sodium 137 mmol/L (136-145) 04/16/23 06:30 Potassium 4.0 mmol/L (3.5-5.1) 04/16/23 06:30 Chloride 104 mmol/L (98-107) 04/16/23 06:30 Carbon Dioxide 25 mmol/L (21-32) 04/16/23 06:30 Anion Gap 8 (3-11) 04/16/23 06:30 BUN 14 mg/dl (6-23) 04/16/23 06:30 Creatinine 0.86 mg/dl (0.6-1.4) 04/16/23 06:30 Est Cr Clr Drug Dosing 108.0 ml/min 04/16/23 06:30 Est GFR ( Amer) 107.0 ml/min 04/16/23 06:30 Est GFR (Non-Af Amer) 92.3 ml/min 04/16/23 06:30 BUN/Creatinine Ratio 16.3 (10-20) 04/16/23 06:30 Glucose 111 mg/dl (70-99(Fasting)) H 04/16/23 06:30 Lactate 0.7 mmol/L (0.4-2.0) 04/13/23 08:50 Calcium 8.8 mg/dl (8.6-10.3) 04/16/23 06:30 Magnesium 1.9 mg/dl (1.7-2.4) 04/15/23 07:12 Iron 27 mcg/dl (35-175) L 04/13/23 08:50 Unsaturated IBC 272 mcg/dl (155-355) 04/13/23 08:50 Transferrin 225 mg/dl (200-360) 04/13/23 08:50 Ferritin 158.3 ng/ml (8-388) 04/13/23 08:50 Total Bilirubin 1.7 mg/dl (0.2-1.0) H 04/14/23 06:24 Direct Bilirubin 0.3 mg/dl (0-0.2) H 04/13/23 08:50 AST 15 U/L (13-39) 04/14/23 06:24 ALT 17 U/L (7-52) 04/14/23 06:24 Alkaline Phosphatase 66 U/L (34-104) 04/14/23 06:24 Troponin I High Sens 3.9 pg/ml (0-20) 04/13/23 08:50 C-Reactive Protein 5.88 mg/dl (0-0.5) H 04/13/23 14:48 Total Protein 6.7 gm/dl (6.0-8.3) 04/14/23 06:24 Albumin 3.8 gm/dl (3.4-5.0) 04/14/23 06:24 Globulin 2.9 gm/dl (2.5-4.0) 04/14/23 06:24 Albumin/Globulin Ratio 1.3 (0.9-2) 04/14/23 06:24 Vitamin B12 601 pg/ml (180-914) 04/13/23 08:50 Folate 15.13 ng/ml (>5.38) 04/13/23 08:50 Procalcitonin < 0.05 ng/ml (0-0.5) 04/13/23 08:50 TSH 0.578 uIu/ml (0.300-4.500) 04/13/23 08:50 Urine Color Yellow 04/13/23 Unknown Urine Appearance Clear (Clear) 04/13/23 Unknown Urine pH 6.5 (4.5-7.5) 04/13/23 Unknown Ur Specific [place] 1.009 (1.000-1.030) 04/13/23 Unknown Urine Protein Negative (Negative) 04/13/23 Unknown Urine Glucose (UA) Negative (Negative) 04/13/23 Unknown Urine Ketones Negative (Negative) 04/13/23 Unknown Urine Blood Negative (Negative) 04/13/23 Unknown Urine Nitrite Negative (Negative) 04/13/23 Unknown Urine Bilirubin Negative (Negative) 04/13/23 Unknown Urine Urobilinogen Negative (Negative) 04/13/23 Unknown Ur Leukocyte Esterase Negative (Negative) 04/13/23 Unknown Nasal Screen MRSA (PCR) Negative (Negative) 04/13/23 Unknown Adenovirus (PCR) Not Detected (NotDetected) 04/13/23 08:50 Anaplasma Smear See Comment 04/13/23 08:50 Babesia Smear See Comment 04/13/23 08:50 Babesia microti DNA PCR Not Detected (Not Detected) 04/13/23 08:50 B. pertussis DNA (PCR) Not Detected (NotDetected) 04/13/23 08:50 B.parapertussis DNA PCR Not Detected (NotDetected) 04/13/23 08:50 Lyme Disease IgG Ab Negative (Negative) 04/13/23 08:50 Lyme Disease IgM Ab Negative (Negative) 04/13/23 08:50 C. pneumoniae DNA (PCR) Not Detected (NotDetected) 04/13/23 08:50 Coronavirus OC43 (PCR) Not Detected (NotDetected) 04/13/23 08:50 Coronavirus HKU1 (PCR) Not Detected (NotDetected) 04/13/23 08:50 Coronavirus 229E (PCR) Not Detected (NotDetected) 04/13/23 08:50 SARS-CoV-2 (PCR) Not Detected (NotDetected) 04/13/23 08:50 Coronavirus NL63 (PCR) Not Detected (NotDetected) 04/13/23 08:50 EBV Capsid Ag IgG Ab >750.00 U/mL H 04/13/23 12:53 EBV Capsid Ag IgM Ab <36.00 U/mL 04/13/23 12:53 EBV EA Restrict+Diffuse >150.00 U/mL H 04/13/23 12:53 EBV Nuclear Antigen Ab 68.80 U/mL H 04/13/23 12:53 EBV Antibody Interp SEE NOTE 04/13/23 12:53 Monoscreen Negative (Negative) 04/13/23 12:53 Human Metapneumovir PCR Not Detected (NotDetected) 04/13/23 08:50 Influenza Type A (PCR) Not Detected (NotDetected) 04/13/23 08:50 Influenza Type B (PCR) Not Detected (NotDetected) 04/13/23 08:50 M. pneumoniae (PCR) Not Detected (NotDetected) 04/13/23 08:50 Parainfluenza 1 (PCR) Not Detected (NotDetected) 04/13/23 08:50 Parainfluenza 2 (PCR) Not Detected (NotDetected) 04/13/23 08:50 Parainfluenza 3 (PCR) Not Detected (NotDetected) 04/13/23 08:50 Parainfluenza 4 (PCR) Not Detected (NotDetected) 04/13/23 08:50 RSV (PCR) Not Detected (NotDetected) 04/13/23 08:50 Entero/Rhino (PCR) Not Detected (NotDetected) 04/13/23 08:50 Flow Cytometry Comment See Comment 04/13/23 10:46 Impressions Chest X-Ray 04/13/23 08:53 XR chest 1V portable CLINICAL HISTORY: Sepsis TECHNIQUE: Single frontal radiograph of the chest was obtained. Comparison: Comparison is made to chest radiograph 11/19/2020 FINDINGS: No lines and tubes are seen. The cardiomediastinal silhouette is stable. The lungs are clear. No evidence of pleural effusion or pneumothorax. IMPRESSION: No acute abnormalities and in particular no radiographic evidence of pneumonia. ACT 112: Negative or not required by law. Electronically signed by: Juan Stanford M.D. 04/13/2023 9:31 AM Abdomen/Pelvis CT 04/13/23 17:36 CT chest diagnostic wo con, CT abd pelvis wo con CT DOSE: 2512.45 mGy.cm HISTORY: eval for splenomegaly and LAD TECHNIQUE: Multiaxial CT images of the chest, abdomen, and pelvis were performed without contrast. A dose lowering technique was utilized adhering to the principles of ALARA. COMPARISON: Chest CTA 11/19/2020. FINDINGS: Chest CT: The thyroid gland appears unremarkable. No mediastinal, hilar, or axillary lymphadenopathy identified. The heart is normal in size. No pleural or pericardial effusions. Normal esophagus. Normal caliber thoracic aorta. Moderate coronary artery calcifications are noted. No suspicious lytic or blastic osseous lesions. The central airways are patent. No focal lung consolidations to suggest a pneumonia. No evidence for pulmonary edema. There is a stable 3 mm nodule within the right lung apex. This is best seen on image 29. There is a 4 mm subpleural nodule within the right lower lobe on image 121 abutting the major fissure. These are considered to be benign given the long-term stability. No suspicious pulmonary nodules identified. Abdomen/pelvis CT: No pneumoperitoneum. No pneumatosis. No suspicious lytic are blastic osseous lesions. The spleen remains mildly enlarged measuring 13.2 cm in length. Small fat-containing right inguinal hernia. Tiny fat-containing umbilical hernia. There are 3 small gallstones measuring up to 7 mm. No gallbladder wall thickening. The stable 2 cm hypodense lesion within the left hepatic lobe. This favors a cyst but is incompletely characterized on this noncontrast study. The spleen remains mildly enlarged measuring 13 cm in length. The unenhanced pancreas and adrenal glands unremarkable. There are few bilateral renal hypodense lesions with the largest on the right measuring 3 cm. These are incompletely characterized on this noncontrast study but statistically represent cysts. There is a 4 mm stone within the right kidney. No left renal calculi or ureteral calculi. No hydronephrosis. Mild bilateral perinephric edema. This is likely chronic. No retroperitoneal or mesenteric lymphadenopathy. Mild calcified plaque within the normal caliber abdominal aorta. No pelvic lymphadenopathy or pelvic free fluid. Mild bladder wall thickening. This is likely due to underdistention. Suboptimal evaluation for bowel pathology due to the lack of intravenous and oral contrast. There are a few colonic diverticula. No evidence for an acute diverticulitis. No dilated loops of bowel to suggest an ob struction. Normal appendix. Focal thickening within the short segment of the distal ileum within the right lower quadrant best seen on image 290. There is mild surrounding fat stranding. This is consistent with a nonspecific ileitis. This favors an infectious or inflammatory process. IMPRESSION: 1. No lymphadenopathy within the chest, abdomen, or pelvis. 2. Stable mild splenomegaly. 3. Focal thickening within a short segment of the distal ileum with adjacent mild fat stranding. This likely represents a nonspecific ileitis. 4. Cholelithiasis. 5. Additional findings as described above. ACT 112: Negative or not required by law. Electronically signed by: Curly Okeefe M.D. 04/13/2023 7:[address] 04/13/23 17:36 CT chest diagnostic wo con, CT abd pelvis wo con CT DOSE: 2512.45 mGy.cm HISTORY: eval for splenomegaly and LAD TECHNIQUE: Multiaxial CT images of the chest, abdomen, and pelvis were performed without contrast. A dose lowering technique was utilized adhering to the principles of ALARA. COMPARISON: Chest CTA 11/19/2020. FINDINGS: Chest CT: The thyroid gland appears unremarkable. No mediastinal, hilar, or axillary lymphadenopathy identified. The heart is normal in size. No pleural or pericardial effusions. Normal esophagus. Normal caliber thoracic aorta. Moderate coronary artery calcifications are noted. No suspicious lytic or blastic osseous lesions. The central airways are patent. No focal lung consolidations to suggest a pneumonia. No evidence for pulmonary edema. There is a stable 3 mm nodule within the right lung apex. This is best seen on image 29. There is a 4 mm subpleural nodule within the right lower lobe on image 121 abutting the major fissure. These are considered to be benign given the long-term stability. No suspicious pulmonary nodules identified. Abdomen/pelvis CT: No pneumoperitoneum. No pneumatosis. No suspicious lytic are blastic osseous lesions. The spleen remains mildly enlarged measuring 13.2 cm in length. Small fat-containing right inguinal hernia. Tiny fat-containing umbilical hernia. There are 3 small gallstones measuring up to 7 mm. No gallbladder wall thickening. The stable 2 cm hypodense lesion within the left hepatic lobe. This favors a cyst but is incompletely characterized on this noncontrast study. The spleen remains mildly enlarged measuring 13 cm in length. The unenhanced pancreas and adrenal glands unremarkable. There are few bilateral renal hypodense lesions with the largest on the right measuring 3 cm. These are incompletely characterized on this noncontrast study but statistically represent cysts. There is a 4 mm stone within the right kidney. No left renal calculi or ureteral calculi. No hydronephrosis. Mild bilateral perinephric edema. This is likely chronic. No retroperitoneal or mesenteric lymphadenopathy. Mild calcified plaque within the normal caliber abdominal aorta. No pelvic lymphadenopathy or pelvic free fluid. Mild bladder wall thickening. This is likely due to underdistention. Suboptimal evaluation for bowel pathology due to the lack of intravenous and oral contrast. There are a few colonic diverticula. No evidence for an acute diverticulitis. No dilated loops of bowel to suggest an obstruction. Normal appendix. Focal thickening within the short segment of the distal ileum within the right lower quadrant best seen on image 290. There is mild surrounding fat stranding. This is consistent with a nonspecific ileitis. This favors an infectious or inflammatory process. IMPRESSION: 1. No lymphadenopathy within the chest, abdomen, or pelvis. 2. Stable mild splenomegaly. 3. Focal thickening within a short segment of the distal ileum with adjacent mild fat stranding. This likely represents a nonspecific ileitis. 4. Cholelithiasis. 5. Additional findings as described above. ACT 112: Negative or not required by law. Electronically signed by: Curly Okeefe M.D. 04/13/2023 7:14 PM Bone Marrow Biopsy w/ CT 04/14/23 08:25 CT-guided bone marrow biopsy INDICATION: Neutropenia PROCEDURE: Procedure and risks were explained. Informed consent was obtained. A final timeout was completed. The patient was placed prone on the CT exam table. The left gluteal region was prepped and draped in sterile fashion. 1% buffered lidocaine was utilized for skin anesthesia. The patient received 1 g Tylenol and 75 mcg fentanyl IV. Utilizing CT guidance, an 11-gauge bone biopsy needle was advanced into the left iliac bone. Multiple aspirates and one bone core was obtained and given to the lab. The needle was removed and Band-Aid applied. The patient tolerated the procedure well. Vital signs will be monitored postprocedure. IMPRESSION: Bone marrow biopsy as above. Performed, dictated, and signed by Cedric Gonzales PA-C; to be co-signed by Dr. Curly Okeefe. Electronically signed by: Curly Okeefe M.D. 04/14/2023 3:59 PM Ordered Studies 04/13/23 17:36 CT abd pelvis wo con Routine CT chest diagnostic wo con Routine 04/14/23 08:25 IR bone marrow bx & asp Routine Hospital Course (1) Neutropenia: (2) HLD (hyperlipidemia): (3) Hypertension: (4) LBBB (left bundle branch block): Plan Patient is a 62 yr male who has significant past medical history of HTN, HLD, LBBB, GERD, history of COVID-19 who presents to ED secondary to worsening fatigue, ANTOINE, poor appetite x2 to 3 months. Neutropenia Thrombocytopenia Mild splenomegaly Nonspecific ileitis incidental finding on CT.--No signs of nausea, vomiting, diarrhea Cholelithiasis--incidental finding. Asymptomatic Patient with progression of neutropenia since February Patient reports fatigue that is progressive, chills/feeling hot, occasional night sweats, but no significant weight loss No known recent illness --CT Chest/Abd:No lymphadenopathy within the chest, abdomen, or pelvis. Stable mild splenomegaly. Focal thickening within a short segment of the distal ileum with adjacent mild fat stranding. This likely represents a nonspecific ileitis. Cholelithiasis. -- Blood cultures negative to date --Had bone marrow biopsy on 04/14/2023 --Negative respiratory panel --Serum copper level pending --Immunological workup pending -- Serological testing for hepatitis pending --Serological test for parvovirus pending --Serologies with history of prior EBV infection --Bone marrow chromosome analysis, Path pending --Flow cytometry pending -- Empirically on cefepime--Continue 7 day course per ID --Appreciate hematology/oncology input Neutropenia stable Appreciate ID Input Patient refused HIV testing Preliminary bone marrow biopsy not suggestive of hematologic malignancy; monoclonal testing pending, 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 Received filgrastim today Needs follow-up with oncology upon discharge Hyperlipidemia Continue statin Hypertension Continue losartan GERD Continue Pepcid Weight loss pt reports being on ozempic for ~ 1 year for attempted weight loss Aortic Sclerosis Echo 08/2022 revealed normal EF, LVH, grade 1 diastolic dysfunction and mild aortic valve sclerosis Monitor DVT Px: SCDs Re: Thrombocytopenia, Bone Marrow Bx Code Status FULL CODE Disposition Home Total Time Total Time Spent Total Time Spent (In Minutes): 56 minutes Discharge Plan Discharge Items Patient Disposition: Home - Home Health Services Reason For Visit: NEUTROPENIA Discharge Diagnosis: Febrile neutropenia Thrombocytopenia Activity: Per Instructions section Exercise/Sports: Wait until after follow-up appointment Non-emergency contact: Primary Care Provider and Oncologist Call non-emergency contact if: you have any medication questions, your symptoms worsen, your pain is concerning for you and you have a fever Follow-up/Referrals: Bradly Steiner DO [Primary Care Provider] - (Date & Time 04/20/2023 10:00 AM Provider [facility] Department [facility] ) Samia Garner MD [Physician] - (The Hematology/Oncology office will call you with an appointment. ) Diet: Heart Healthy Addtl Attending Provider Instructions: Follow-up with your primary care physician Dr. Bradly Steiner and oncologist Dr. Pisano as scheduled. --- Complete the IV antibiotic course Cefepime as prescribed to complete 7-day course of antibiotics as per infectious disease. --Your serological, immunological, blood cultures, flow cytometry, bone marrow biopsy results are pending at the time of discharge. Follow-up with your physician for results. Seek immediate medical attention if your symptoms reoccur or worsen Please take all medications as instructed on discharge list below. Please call if you have any questions or problems. You can reach a [facility] hospitalist on duty at [facility] 24 hours a day by calling [phone] Pending Studies at Discharge: Yes Stand-Alone Forms: My [facility], Smoking Cessation Medications and DC Order Prescriptions: New ferrous sulfate 325 mg (65 mg iron) Tablet,Delayed Release (Dr/Ec) 325 mg PO QAM Qty: 30 0RF cefepime 2 gram recon soln 2 g IV Q8H 4 Days Qty: 1 0RF Continued losartan 25 mg tablet 25 mg PO DAILY rosuvastatin 10 mg tablet 10 mg PO DAILY famotidine 20 mg tablet 20 mg PO BID fluticasone propionate 50 mcg/actuation spray,suspension 1 spray INTRANASAL UD meloxicam 7.5 mg tablet 7.5 mg PO DAILY PRN (Reason: Pain) Rx Instructions: Patient stated he takes 1 tablet by mouth once or twice a week Ozempic 2 mg/dose (8 mg/3 mL) pen injector 2 mg SUBCUT DIRECTED Rx Instructions: thursday Discharge Orders: Discharge Order (Routine); Ordered 04/16/23 Ordered By: Brian Kitchen/Other Patient Handouts: Neutropenia, Your Body's Response to Anxiety Admission Data Admit Date/Time: 04/15/23 14:24 Attending Provider: Brian Lam Admit Provider: Viviana Linder Primary Care Provider: Bradly Steiner Other Providers: Viviana Linder ; Samia Garner ; Bob Joaquin ; Yaneth Goss ; Kennedy Flower I. ; Papo Yung II ; Rosina Pierre ; Luis Enrique Goodman ; Adam Aguilar ; Dianne Mays ; [facility] ; [facility] ; [facility] Other Interventions: Discharge Summary Assessment (RN) Last Done: 04/16/23 11:31
[2023-04-16] MEDS ORDERED: POLYETHYLENE (MIRALAX) 17 GM PACK PO ONE (16:23)
[2023-04-17 07:57] LABS: Parvovirus IgG 3.9 (<0.9); Parvovirus IgM 0.1 (<0.9)
[2023-04-19 18:12] LABS: EBV DNA Quant PCR Not Detected copies/mL; EBV DNA Quant Source Whole Blood
== END 2023-04-16 16:58 | disposition home or self-care (01) | DRG 810 ==
LOC: 2N 08:40 → ED 08:40 → SUATTDRO 11:16 → 2N 12:20